=== PATIENT | male | born 1945 | race Caucasian/White ===

== ENCOUNTER 2021-09-04 17:48 | Inpatient (IN) | payer MEDICARE, BC, SELFPAY ==
[2021-09-04] VITALS (72 sets, daily range): BP systolic 82–150; BP diastolic 33–111; PULSE 71–128; RESP 6–55; TEMP 37; O2SAT 84–100
--- NOTE | 2021-09-04 17:15 | RT.EKG_ITS ---
APPROVED REPORT Exam: Resting ECG Reason for Exam: [facility] Patient Location: HR:100 bpm ECG Measurements Heart Rate 100 AXIS ID 190 P 59 QRSd 91 QRS 26 QT 347 T 61 QTc 446 Conclusion Sinus tachycardia...rate> 99 Multiple ventricular premature complexes...V complexes w/ short R-R intervls. Sinus. Normal axis. No STEMI. I have reviewed and interpreted ECG and agree with software generated interpretation.
--- NOTE | 2021-09-04 18:18 | ED.GENADUL_ITS ---
Discharge Plan Disposition Patient Disposition: [facility] INPATIENT Condition: Serious Discharge Details Clinical Impression: Acute respiratory distress, HCAP (healthcare-associated pneumonia), Acute exacerbation of chronic obstructive pulmonary disease Admit Date/Time: 09/04/21 23:21 Admit Provider: Ton Schofield Attending Provider: Ton Schofield Primary Care Provider: Luis Antonio Medina ED Provider: Garertt Cruz Discharge Data Discharge Date/Time-TO BE ENTERED AT DEPARTURE: 09/05/21 01:27 Medical Decision Making <Keysha Sams DO - Last Filed: 09/05/21 15:59> 09/05/21 Dr. Sams [id number] -- 76-year-old male who is a full code with a history of COPD chronically on 4 L of nasal cannula oxygen, hypertension who [facility] after EMS noted CPAP to be leaking. Able to readjust at the rehab but they are requesting evaluation. Oxygen saturation 99% on 2 L on arrival. Patient's speech appears garbled but daughter states this is baseline for the past month. Patient apparently was discharged from [facility] for pneumonia and COPD exacerbation yesterday. Differential diagnosis includes COPD exacerbation, pneumonia, ACS, PE, electrolyte abnormality, COVID, influenza. We will place an IV, screening labs, chest x-ray. 1829 -- Oxygen saturation decreased to 88% and increased nasal cannula to 5 L O2. Labs reviewed. White blood cell count 9. Hemoglobin 9.9. Troponin 464. EKG with a rate of 100, sinus, PVCs, normal axis, no STEMI nondiagnostic. Suspect demand ischemia in the setting or hypoxia/pneumonia. Fluvid negative. Chest x- ray notes left basilar opacity concerning for pneumonia. In setting of recent admission for pneumonia and hypoxia, will cover for HCAP. CT chest ordered in the setting of hypoxia and elevated troponin initial heart rate of 100 to rule out PE. 1930 -- patient appears to have mild work of breathing. Oxygen saturation 97% on room air. Daughter states he cannot take steroids as it causes significant agitation. We will order a DuoNeb and start BiPAP. 2014 --patient tolerating BiPAP and he appears to be breathing more comfortably but now hypotensive. IV fluids ordered. ABG after short period of time on BiPAP w/ pH of 7.23, PCO2 > 100, PO2 85 with settings 12/5 and FiO2 40%. As he appears to be breathing more comfortably, respiratory at bedside adjusting BiPAP settings and will continue to monitor and recheck ABG. Low threshold for intubation. Discussed again with daughter who states that patient is a full code. Case endorsed to Dr. Cruz to continue to monitor with plans for repeat troponin and EKG, follow-up on CT chest and final disposition. 09/05/21 Dr. Cruz pt signed out to me. He apparently was not tolerating bipap and agitated on bipap and is now calm and somnolent after bipap. Initial abg showed ph of 7.23 and pco2 over 100 but this was before he was having adequate ventilations on bipap. He is now breathing on his own and tolerating bipap and repeat abg shows improved pco2 at 80 and pH of 7.29. He will groan to painful stimuli and withdraw extremities and is breathing well without secretions so do not feel intubation indicated currently. Suspect he is now more somnolent due to the hypercapnia and ativan. I did discuss case with cardiology at [facility] and they did not have any further recommendations did not feel this was cardiac related and felt it was related to his underlying respiratory problems. His d dimer is barely above age adjusted threshold and feel his presentation is more consistent with his copd/pneumonia and not adequate use of his cpap/bipap so do not feel cta indicated especailly with iv contrast shortage. discussed with hopsitalst who accepts for admission Medical Records Medical records reviewed: Yes I reviewed the patient's medical records. Imaging Data Radiologic Study: Radiologist's impression: XR Chest Exam date and time: 09/04/2021 18:37 Age: 76 years old Clinical indication: Other: Hypoxia; Patient HX: R/O acute disease TECHNIQUE: Imaging protocol: XR of the chest. Views: 1 view. COMPARISON: No relevant prior studies available. FINDINGS: Lungs: Emphysema. Left basilar opacity. Pleural spaces: No definite pleural effusion. No pneumothorax. Heart/Mediastinum: Prominent main pulmonary artery segment suggesting pulmonary artery hypertension. The cardiac silhouette is upper limits of normal. Bones/joints: No acute fracture.? IMPRESSION: 1. Emphysema. 2. Left basilar opacity concerning for pneumonia. ECG Data Attestation: I personally reviewed and interpreted this ECG (s) as follows: Interpretation: Rate of 100, sinus, PVCs, normal axis, no STEMI. <Garrett Cruz MD - Last Filed: 09/04/21 23:43> 1725 -- 76-year-old male who is a full code with a history of COPD chronically on 4 L of nasal cannula oxygen, hypertension who presents [facility] for hypoxia after EMS noted CPAP to be leaking. Able to readjust at the rehab but they are requesting evaluation. Oxygen saturation 99% on 2 L on arrival. Patient states he appears garbage daughter states this is baseline for the past month. Patient apparently was discharged from [facility] for pneumonia and COPD exacerbation yesterday. Differential diagnosis includes COPD exacerbation, pneumonia, ACS, PE, electrolyte abnormality, COVID, influenza. We will place an IV, screening labs, chest x-ray. 1829 -- Oxygen saturation decreased to 88% and increased nasal cannula to 5 L O2. 1929 -- patient appears to have mild work of breathing. Oxygen saturation 97% on room air. Daughter states he cannot take steroids as it causes significant agitation. We will order a DuoNeb and start BiPAP. 2014 --patient tolerating BiPAP and he appears to be breathing more comfortably but now hypotensive. IV fluids ordered. Case endorsed to Dr. Cruz to continue to monitor with plans for repeat troponin and EKG, follow-up on CT chest and final disposition. pt signed out to me. He apparently was not tolerating bipap and agitated on bipap and is now calm and somnolent after bipap. Initial abg showed ph of 7.23 and pco2 over 100 but this was before he was having adequate ventilations on bipap. He is now breathing on his own and tolerating bipap and repeat abg shows improved pco2 at 80 and pH of 7.29. He will groan to painful stimuli and withdraw extremities and is breathing well without secretions so do not feel intubation indicated currently. Suspect he is now more somnolent due to the hypercapnia and ativan. I did discuss case with cardiology at [facility] and they did not have any further recommendations did not feel this was cardiac related and felt it was related to his underlying respiratory problems. His d dimer is barely above age adjusted threshold and feel his presentation is more consistent with his copd/pneumonia and not adequate use of his cpap/bipap so do not feel cta indicated especailly with iv contrast shortage. discussed with hopsital[facility] who accepts for admission HPI <Keysha Sams, - Last Filed: 09/05/21 15:59> General Mode of arrival: EMS . Date/Time Provider Initiated Documentation: 09/04/21 18:17 . Limitations to Documentation: no limitations . Information obtained by: patient and family . HPI Narrative: Patient is a 76-year-old male with a history of COPD chronically on 4 L nasal cannula in past 4 years who presents for hypoxia noted at the [facility]. Per EMS, they were called for saturations in the 80s. Upon their arrival, they noted the CPAP to be leaking which was readjusted and his saturations were brought to mid 90s. Health and rehab were requesting evaluation and transfer. Patient denies shortness of breath on arrival. It was reported by daughter on her arrival that patient was admitted to [facility] recently for COPD exacerbation and pneumonia. She states she was intubated twice during his admission. She states he is still currently a full code. She also endorses that he has had garbled speech for the past month and was worked up at [facility] and ruled out for stroke. Daughter states that patient cannot take steroids as it makes him significantly agitated. Related Data Home Medications Medication Instructions Recorded Confirmed azithromycin 250 mg tablet 250 mg PO QAM 09/04/21 09/04/21 budesonide-formoterol HFA 160 2 puff inhalation BID 09/04/21 09/04/21 mcg-4.5 mcg/actuation aerosol inhaler calcipotriene 0.005 % scalp 1 applic topical DAILY 09/04/21 09/04/21 solution calcipotriene 0.005 % topical cream 1 applic topical DAILY 09/04/21 09/04/21 clobetasol 0.05 % topical ointment 1 applic topical BID 09/04/21 09/04/21 docusate sodium 100 mg capsule 100 mg PO BID 09/04/21 09/04/21 fluticasone propionate 50 2 spray intranasal BID 09/04/21 09/04/21 mcg/actuation nasal spray,suspension ipratropium bromide 0.02 % 0.5 mg inhalation QID 09/04/21 09/04/21 solution for inhalation ketoconazole 2 % shampoo 1 applic topical DIRECTED 09/04/21 09/04/21 losartan 100 mg tablet 100 mg PO DAILY 09/04/21 09/04/21 metoprolol succinate 25 mg 25 mg PO DAILY 09/04/21 09/04/21 tablet,extended release 24 hr pimecrolimus 1 % topical cream 1 applic topical BID PRN 09/04/21 09/04/21 tacrolimus 0.1 % topical ointment 1 applic topical BID 09/04/21 09/04/21 tiotropium bromide 2.5 2 puff inhalation DAILY 09/04/21 09/04/21 mcg/actuation mist for inhalation (Spiriva Respimat) triamcinolone acetonide 0.1 % 1 applic topical BID 09/04/21 09/04/21 topical cream Allergies Allergy/AdvReac Type Severity Reaction Status Date / Time Calcium Channel Blocking AdvReac Unknown Unverified 09/04/21 18:21 Agent Dilt oxycodone AdvReac Unknown Unverified 09/04/21 18:19 prednisone AdvReac Unknown Unverified 09/04/21 18:20 [id number]-SdT Reductase AdvReac Unknown Unverified 09/04/21 18:21 Inhibitor sulfamethoxazole AdvReac Unknown Unverified 09/04/21 18:20 [From Bactrim] trimethoprim [From Bactrim] AdvReac Unknown Unverified 09/04/21 18:20 General Stated Complaint: SOB DOMINGUEZ: 1 Review of Systems <Keysha Sams DO - Last Filed: 09/05/21 15:59> All systems reviewed & are unremarkable except as noted in HPI and below Constitutional Constitutional: Denies chills, Denies excessive sweating, Denies fatigue, Denies fever(s), Denies weakness and Denies weight loss Eyes Eyes: Reports system reviewed and no additional complaints, except as documented and Denies blurry vision ENT Ears, Nose, Mouth, and Throat: Denies vertigo, Denies dizziness, Denies otalgia, Denies nasal congestion, Denies sore throat and Denies throat swelling Cardiovascular Cardiovascular: Denies chest pain, Denies syncope, Denies rapid heart rate and Reports dyspnea Respiratory Respiratory: Denies chest congestion, Denies cough, Denies pain on inspiration and Reports dyspnea Gastrointestinal Gastrointestinal: Denies abdominal pain, Denies diarrhea and Denies vomiting Genitourinary Genitourinary: Denies hematuria, Denies dysuria and Denies flank pain Musculoskeletal Musculoskeletal: Denies back pain and Denies joint swelling Integumentary/Breasts Skin/Breast: Denies lesions and Denies rash Neurologic Neurologic: Denies behavioral changes, Denies confusion, Denies vertigo, Denies dizziness, Denies syncope, Denies localized weakness and Denies weakness Psychiatric Psychiatric: Denies behavioral changes, Denies confusion and Denies depression Endocrine Endocrine: Denies excessive sweating and Denies fatigue Hematologic/Lymphatic Hematologic/Lymphatic: Denies easy bruising and Denies lymphadenopathy Allergic/Immunologic Allergic/Immunologic: Denies throat swelling PFSH <Keysha Sams DO - Last Filed: 09/05/21 15:59> All Active Problems NSTEMI (non-ST elevated myocardial infarction) (Acute) Acute respiratory failure with hypoxia and hypercarbia (Acute) Acute respiratory distress (Acute) HCAP (healthcare-associated pneumonia) (Acute) Acute exacerbation of chronic obstructive pulmonary disease (Acute) Medical History COPD (chronic obstructive pulmonary disease) HTN (hypertension) Prostate cancer Surgical History No significant past surgical history Social History Smoking/Tobacco Use Status: Former Tobacco Use Smoking risk assessment performed?: Yes Alcohol Intake: current Substance use type: does not use Do you feel safe at home: Yes Do you feel safe in your relationship?: Yes Exam <Keysha Sams DO - Last Filed: 09/05/21 15:59> Const General: cooperative Orientation: alert, awake and oriented x3 HENMT Head: normal to inspection Ears: hearing grossly normal bilaterally, external ears normal and TM's normal bilaterally General nose exam: external nose normal Face and sinus: normal facial exam Mouth: oral mucosae normal Teeth and gingiva: dentition normal Throat: posterior oropharynx normal Eyes General: appearance normal, both eyes and all related structures Eyelids: eyelids normal Pupils: PERRL EOM: EOM intact bilaterally Neck Neck: normal visual inspection Lymphatic: no lymphadenopathy noted Chest Chest: normal inspection of the chest Resp Effort & Inspection: normal respiratory effort and able to speak in complete sentences Auscultation: clear to auscultation bilaterally Cardio Rate: regular rate Rhythm: regular rhythm GI Inspection: normal to inspection Palpation: soft, not firm, no guarding, no hepatosplenomegaly, no masses and nontender Auscultation: normal bowel sounds Back/Spine/Pelvis Back: no CVA tenderness Skin General skin exam: no rashes or lesions noted Neuro General: patient alert and patient awake Cognition: normal cognition Speech: speech normal Gait: normal gait Motor: muscle tone normal throughout Sensory Exam: no sensory deficits noted Extrem General: normal to inspection, full ROM and capillary refill normal Psych Appearance: grossly normal Mental Status: mental status grossly normal Speech and Movement: speech and movement normal Affect: normal affect Thought Process: normal Course <DO Pj Eason Last Filed: 09/05/21 15:59> Vital Signs Vital signs: Vital Signs Temperature 98.6 F 09/04/21 17:22 Pulse 99 H 09/04/21 17:22 Respiratory Rate 28 H 09/04/21 17:22 Blood Pressure 122/67 09/04/21 17:22 Pulse Oximetry 99 09/04/21 17:22 Temperature 98.6 F 09/04/21 17:22 Temperature Source Skin 09/04/21 17:22 Pulse 99 H 09/04/21 17:22 Respiratory Rate 37 H 09/04/21 18:01 Respiratory Effort Incrsd Work of Breathing 09/04/21 18:01 Respiratory Depth Shallow 09/04/21 18:01 Blood Pressure 122/67 09/04/21 17:22 Pulse Oximetry 97 09/04/21 17:58 Oxygen Delivery Method Nasal Cannula 09/04/21 17:58 Oxygen Flow Rate 2 09/04/21 17:58 Pain Level 0 09/04/21 17:22 Critical Care Time <DO Pj Eason Last Filed: 09/05/21 15:59> Critical Care Time Critical Care Time: Yes Total Critical Care Time: 60 Attestation: I spent 60 minutes of critical care time with this patient. This does not include time spent on separately reported billable procedures. Sign Out <DO Pj Eason Last Filed: 09/05/21 15:59> Sign Out Data: Sign Out Comment: Recent admission to [facility] for COPD exacerbation and pneumonia. Sent from [facility] re[facility] for hypoxia. Was initially mid 90s on baseline nasal cannula, now increased work of breathing and on BiPAP. Elevated troponin with plan for delta troponin at 2109. Follow-up on CT chest to rule out PE. Pneumonia on chest x-ray today. Will need admission or transfer. Last updated by Keysha Sams DO at 09/04/21 20:09
[2021-09-04 18:30] LABS: Abs Immature Grans 0.05 10^3/uL (0.0-0.06); Absolute Basophil Count 0.01 10^3/uL (0.0-0.2); Absolute Eosinophil Count 0.01 10^3/uL (0.0-0.7); Absolute Lymphocyte Count 0.65 10^3/uL (1.2-3.4); Absolute Monocyte Count 0.91 10^3/uL (0.1-0.8); Absolute Neutrophil Count 7.73 10^3/uL (1.2-6.7); Basophils % 0.1; Eosinophils % 0.1; HCT 34.3 % (40.0-50.0); HGB 9.9 g/dL (13.5-17.5); Immature Grans % 0.5; Lymphocytes % 6.9; MCH 26.2 pg (27.0-33.0); MCHC 28.9 % (32.0-36.0); MCV 91 fL (80-95); MPV 9.8 fL (8.0-11.0); Monocytes % 9.7; Neutrophils % 82.7; Platelet Count 281 10^3/uL (130-400); RBC 3.78 10^6/uL (4.36-5.78); RDW 15.4 % (11.8-14.1); RDW-SD 50.8 fL; WBC 9.36 10^3/uL (4.4-10.8)
--- NOTE | 2021-09-04 18:30 | DI.RAD_ITS ---
Exam(s) XR PORTABLE CHEST AP EXAM: XR PORTABLE CHEST AP CLINICAL HISTORY: shortness of breath, r/o acute disease. TECHNIQUE: 2D digital imaging was performed. COMPARISON: No exams were available for comparison FINDINGS: Single AP portable view. Heart size is upper normal. The mediastinum is not widened. COPD/emphysematous changes evident. Infiltrate noted in the lower left lung field. No large pleural effusions. No pneumothorax. IMPRESSION: COPD/emphysema. Left lower lobe infiltrate. DATA REPOSITORY: RADIATION DOSE DELIVERED: All CT scans at this facility use at least one of these dose optimization techniques: automated exposure control; mA and/or kV adjustment per patient size (includes targeted e xams where dose is matched to clinical indication); or iterative reconstruction.
[2021-09-04 18:45] LABS: ALT 17 U/L (16-63); AST 21 U/L (15-37); Albumin 3.1 g/dL (3.4-5.0); Alkaline Phosphatase 99 U/L (46-116); Anion Gap 0.2 mmol/L (3-11); BUN 31 mg/dL (7-18); Bilirubin, Total 0.2 mg/dL (0.2-1.0); CO2 40.8 mmol/L (21.0-32.0); CREATININE 0.7 mg/dL (0.70-1.30); Calcium 8.3 mg/dL (8.5-10.1); Chloride 99 mmol/L (98-107); Glucose 130 mg/dL (74-106); Magnesium 2.2 mg/dL (1.8-2.4); Potassium 4.4 mmol/L (3.5-5.1); Sodium 140 mmol/L (136-145); Total Protein 6.3 g/dL (6.4-8.2)
[2021-09-04 18:47] LABS: Troponin I 464 ng/L (<or=60)
--- NOTE | 2021-09-04 19:02 | DI.VRAD_ITS ---
PROCEDURE INFORMATION: Exam: XR Chest Exam date and time: 09/04/2021 18:37 Age: 76 years old Clinical indication: Other: Hypoxia; Patient HX: R/O acute disease TECHNIQUE: Imaging protocol: XR of the chest. Views: 1 view. COMPARISON: No relevant prior studies available. FINDINGS: Lungs: Emphysema. Left basilar opacity. Pleural spaces: No definite pleural effusion. No pneumothorax. Heart/Mediastinum: Prominent main pulmonary artery segment suggesting pulmonary artery hypertension. The cardiac silhouette is upper limits of normal. Bones/joints: No acute fracture. IMPRESSION: 1. Emphysema. 2. Left basilar opacity concerning for pneumonia. Dictated and Authenticated by: Carmen Figueroa MD. Ordering:JACQUES Chopra MD
[2021-09-04 19:16] LABS: COVID-19 PCR Negative (Negative); Influenza A PCR Negative (Negative); Influenza B PCR Negative (Negative); RSV PCR Negative (Negative)
[2021-09-04 19:18] LABS: Source Nasopharynx
[2021-09-04] MEDS: Albuterol/Ipratropium 3 ML UPD VIAL UPD (19:34)
[2021-09-04] MEDS: LORazepam 2 MG/ML VIAL 0.5 MG IVP (19:53)
[2021-09-04] MEDS: Normal Saline 500 ML IV (20:20)
[2021-09-04] MEDS: Albuterol 2.5 MG/3 ML INH SOLN VIAL 5 MG UPD (20:23)
[2021-09-04 20:42] LABS: Lactate 0.5 mmol/L (0.6-1.4)
[2021-09-04 20:45] LABS: D-Dimer 1042 ng/mlFEU (<500)
[2021-09-04 20:48] LABS: pH 7.23 (7.35-7.45); pO2 85 mmHg (80-105); sO2 96 % (95-98)
[2021-09-04 20:52] LABS: FIO2 40 %; Site Left Radial; pCO2 > 100 mmHg (35-45)
[2021-09-04] MEDS: PIPERACILLIN/TAZO 3.375 GM in Normal Saline 50 ML IVPB (21:16)
[2021-09-04] MEDS: Dexamethasone 10 MG/ML VIAL IVP (21:20)
[2021-09-04 21:30] LABS: Procalcitonin < 0.1 ng/mL
[2021-09-04] MEDS: VANCOMYCIN 1,250 MG in Normal Saline 250 ML 166.6666 MG IVPB (21:30)
[2021-09-04 21:31] LABS: Troponin I 471 ng/L (<or=60)
[2021-09-04 21:39] LABS: BE 14 mmol/L (-2-3); HCO3 40 mmol/L (22-26); pH 7.29 (7.35-7.45); pO2 58 mmHg (80-105); sO2 87 % (95-98); tCO2 39 mmol/L (23-27)
[2021-09-04 21:42] LABS: FIO2 30 %; FIO2L BIPAP 15/5 L; Site Right Radial; pCO2 84 mmHg (35-45)
--- NOTE | 2021-09-04 23:45 | W.PM.HP.N ---
Date of service: 09/04/21 Time of Service: 22:45 Assessment and Plan Assessment and plan (1) Acute respiratory failure with hypoxia and hypercarbia: Start date: 09/04/21 Status: Acute Assessment and plan: This is a 76-year-old gentleman who has chronic respiratory failure who presented with malfunctioning CPAP and the [facility] where he was recovering from recent hospitalization with severe COPD exacerbation requiring intubation at least twice. He also had a pneumonia over the left lower lobe which appears to be persisting with patient on treatment for hospital-acquired pneumonia with Zosyn and vancomycin given in the ED to be continued. Is doing better with BiPAP and clearing his hypercapnia. He is a full code. (2) Acute exacerbation of chronic obstructive pulmonary disease: Start date: 09/04/21 Status: Acute Assessment and plan: Continue BiPAP and respiratory treatments with IV Decadron. (3) HCAP (healthcare-associated pneumonia): Start date: 09/04/21 Status: Acute Assessment and plan: Continue Zosyn and vancomycin and follow-up imaging adjusting therapy to patient's clinical and imaging progress. (4) NSTEMI (non-ST elevated myocardial infarction): Start date: 09/04/21 Status: Acute Assessment and plan: Patient had elevation in troponins and is allergic to statins but already on metoprolol which will be continued with aspirin initiated. Trend troponins but this most likely secondary to strain from his respiratory status. Patient's CODE STATUS should be reevaluated with his severe lung disease. History of Present Illness History of Present Illness Chief Complaint: Obtundation with CPAP malfunctioning in rehab facility Narrative: Patient is a 76-year-old male with a history of COPD chronically on 4 L nasal cannula in past 4 years who presents for hypoxia noted at the [facility].? Per EMS, they were called for saturations in the 80s.? Upon their arrival, they noted the CPAP to be leaking which was readjusted and his saturations were brought to mid 90s.? The rehab facility was requesting evaluation and transfer.? Patient denies shortness of breath on arrival.? It was reported by daughter on her arrival that patient was admitted to [facility] recently for COPD exacerbation and pneumonia.? She states he was intubated twice during his admission.? She states he is still currently a full code.? She also endorsed that he has had garbled speech for the past month and was worked up at [facility] and ruled out for stroke.? Daughter stated that patient cannot take steroids as it makes him significantly agitated. He was given Decadron in the ED without side effects. The patient's initial blood gas was acidotic with hypercapnia respiratory failure which corrected with BiPAP with second blood gas. Patient was awakening slowly. The time I saw the patient he was awake and conversing stating that it is not my fault and was slightly confused. He was speaking more clearly with reported garbled speech when more sedated with hypercapnia. Lab in the ED did reveal anemia withou evidence of CKD and elevated TCO2 indicating chronic respiratory failure with patient having history of COPD exacerbation and pneumonia recently. D-dimer was positive but because of active respiratory symptoms the ED doctor chose not to do CTA of the chest. Patient continued on BiPAP with O2 supplementation and was brought to the ICU for MedSurg overflow not requiring ICU level of care. He was stabilizing with treatment. His troponins will be trended and he was given aspirin but not statin because of severe allergies to this in the past. He was already on metoprolol. Patient was initiated on Zosyn and vancomycin for hospital-acquired pneumonia having missed outpatient [facility] and being intubated twice. His chest x-ray did show continued left infiltrate. Patient also was given Decadron which will be continued with aggressive respiratory treatment including BiPAP. Troponins will be trended with elevation though asymptomatic. He is a full code. In the ED at handoff patient was endorsed to Dr. Cruz: Patient signed out to me. He apparently was not tolerating bipap and agitated on bipap and is now calm and somnolent after bipap. Initial abg showed ph of 7.23 and pco2 over 100 but this was before he was having adequate ventilations on bipap. He is now breathing on his own and tolerating bipap and repeat abg shows improved pco2 at 80 and pH of 7.29. He will groan to painful stimuli and withdraw extremities and is breathing well without secretions so do not feel intubation indicated currently. Suspect he is now more somnolent due to the hypercapnia and ativan. I did discuss case with [place] [facility] and they did not have any further recommendations did not feel this was cardiac related and felt it was related to his underlying respiratory problems. His d dimer is barely above age adjusted threshold and feel his presentation is more consistent with his copd/pneumonia and not adequate use of his cpap/bipap so do not feel cta indicated especailly with iv contrast shortage. discussed with [facility] who accepts for admission. Review of Systems Narrative: 13 point review of systems otherwise unrevealing or stable. PFSH All Active Problems NSTEMI (non-ST elevated myocardial infarction) (Acute) Acute respiratory failure with hypoxia and hypercarbia (Acute) Acute respiratory distress (Acute) HCAP (healthcare-associated pneumonia) (Acute) Acute exacerbation of chronic obstructive pulmonary disease (Acute) Medical History COPD (chronic obstructive pulmonary disease) HTN (hypertension) Prostate cancer Surgical History No significant past surgical history Social History Smoking/Tobacco Use Status: Former Tobacco Use Smoking risk assessment performed?: Yes Alcohol Intake: current Substance use type: does not use Do you feel safe at home: Yes Do you feel safe in your relationship?: Yes Meds Allergies and Home Medications Allergies Allergy/AdvReac Type Severity Reaction Status Date / Time Calcium Channel Blocking AdvReac Unknown Unverified 09/04/21 18:21 Agent Dilt oxycodone AdvReac Unknown Unverified 09/04/21 18:19 prednisone AdvReac Unknown Unverified 09/04/21 18:20 [id number]-BFV-XqV Reductase AdvReac Unknown Unverified 09/04/21 18:21 Inhibitor sulfamethoxazole AdvReac Unknown Unverified 09/04/21 18:20 [From Bactrim] trimethoprim [From Bactrim] AdvReac Unknown Unverified 09/04/21 18:20 Home Medications Medication Instructions Recorded Confirmed Type azithromycin 250 mg tablet 250 mg PO QAM 09/04/21 09/04/21 History budesonide-formoterol HFA 160 2 puff inhalation BID 09/04/21 09/04/21 History mcg-4.5 mcg/actuation aerosol inhaler calcipotriene 0.005 % scalp 1 applic topical DAILY 09/04/21 09/04/21 History solution calcipotriene 0.005 % topical cream 1 applic topical DAILY 09/04/21 09/04/21 History clobetasol 0.05 % topical ointment 1 applic topical BID 09/04/21 09/04/21 History docusate sodium 100 mg capsule 100 mg PO BID 09/04/21 09/04/21 History fluticasone propionate 50 2 spray intranasal BID 09/04/21 09/04/21 History mcg/actuation nasal spray,suspension ipratropium bromide 0.02 % 0.5 mg inhalation QID 09/04/21 09/04/21 History solution for inhalation ketoconazole 2 % shampoo 1 applic topical DIRECTED 09/04/21 09/04/21 History losartan 100 mg tablet 100 mg PO DAILY 09/04/21 09/04/21 History metoprolol succinate 25 mg 25 mg PO DAILY 09/04/21 09/04/21 History tablet,extended release 24 hr pimecrolimus 1 % topical cream 1 applic topical BID PRN 09/04/21 09/04/21 History tacrolimus 0.1 % topical ointment 1 applic topical BID 09/04/21 09/04/21 History tiotropium bromide 2.5 2 puff inhalation DAILY 09/04/21 09/04/21 History mcg/actuation mist for inhalation (Spiriva Respimat) triamcinolone acetonide 0.1 % 1 applic topical BID 09/04/21 09/04/21 History topical cream Exam Narrative Exam Narrative: General: Patient appears older than stated age, anxious appearing with flattened affect but good eye contact. Is a poor historian. He is in no acute distress and comfortable wearing BiPAP. He is alert and oriented at least to person and place. HEENT: Normocephalic, face with coarsened features, eyes with pupils equal and reactive light symmetrically, extraocular movement intact and sclera anicteric. Oropharynx with moist mucosa. Neck: Supple without JVD. Back: Stooped posture without CVA tenderness. Lungs: Bronchovesicular breath sounds diffusely with decreased aeration diffusely and egophony over the left hemithorax and decreased aeration over the base of the left compared to right though overall aeration is poor. Slight increased expiratory phase and no expiratory wheeze. No focalizing rales or rhonchi. Patient is barrel chested. Heart: Regular rhythm with no murmurs gallops appreciated. Abdomen: Normal contour, soft and nontender to palpation with no palpable hepatosplenomegaly. Genitalia/rectal: Exam deferred. Extremities: Without clubbing, cyanosis or grossly pitting edema. Peripheral pulses decreased but intact. Skin: Pale, warm and dry. Fair turgor. Neuro: Cranial nerves II through XII was intact, no focalizing motor deficits. No tremor. Psych: Flat affect with depressed mood patient having some paranoia. No other abnormal thought processes. Remote and recent memory appear to be grossly intact though patient still slightly obtunded and a poor historian Results Imaging Imaging Studies: Exam: XR Chest Exam date and time: 09/04/2021 18:37 Age: 76 years old Clinical indication: Other: Hypoxia; Patient HX: R/O acute disease TECHNIQUE: Imaging protocol: XR of the chest. Views: 1 view. COMPARISON: No relevant prior studies available. FINDINGS: Lungs: Emphysema. Left basilar opacity. Pleural spaces: No definite pleural effusion. No pneumothorax. Heart/Mediastinum: Prominent main pulmonary artery segment suggesting pulmonary artery hypertension. The cardiac silhouette is upper limits of normal. Bones/joints: No acute fracture.? IMPRESSION: 1. Emphysema. 2. Left basilar opacity concerning for pneumonia. Labs Result diagrams: 09/05/21 06:25 09/05/21 06:25 Labs: Laboratory Results - last 24 hr 09/04/21 09/04/21 09/04/21 16:10 17:00 18:10 WBC RBC Hgb Hct MCV MCH MCHC RDW Plt Count MPV Immature Gran % Neutrophils % Lymphocytes % Monocytes % Eosinophils % Basophils % Nucleated RBC % Absolute Neutrophils Absolute Lymphocytes Absolute Monocytes Absolute Eosinophils Absolute Basophils D-Dimer 1042 H ABG Sample Site ABG pH ABG pCO2 ABG pO2 ABG HCO3 ABG Total CO2 ABG O2 Saturation ABG Base Excess VBG Lactate Oxygen Liter Flow FiO2 Sodium 140 Potassium 4.4 Chloride 99 Carbon Dioxide 40.8 H Anion Gap 0.2 L BUN 31 H Creatinine 0.7 Estimated GFR/1.73 m2 >= 60.00 Glucose 130 H Calcium 8.3 L Magnesium 2.2 Total Bilirubin 0.2 AST 21 ALT 17 Alkaline Phosphatase 99 Troponin I 464 H* Total Protein 6.3 L Albumin 3.1 L Procalcitonin COVID-19 Source Nasopharynx SARS-CoV-2 (PCR) Negative Influenza Type A (PCR) Negative Influenza Type B (PCR) Negative RSV (PCR) Negative 09/04/21 09/04/21 09/04/21 18:17 19:10 20:30 WBC 9.36 RBC 3.78 L Hgb 9.9 L Hct 34.3 L MCV 91 MCH 26.2 L MCHC 28.9 L RDW 15.4 H Plt Count 281 MPV 9.8 Immature Gran % 0.5 Neutrophils % 82.7 Lymphocytes % 6.9 Monocytes % 9.7 Eosinophils % 0.1 Basophils % 0.1 Nucleated RBC % 0.0 Absolute Neutrophils 7.73 H Absolute Lymphocytes 0.65 L Absolute Monocytes 0.91 H Absolute Eosinophils 0.01 Absolute Basophils 0.01 D-Dimer ABG Sample Site ABG pH ABG pCO2 ABG pO2 ABG HCO3 ABG Total CO2 ABG O2 Saturation ABG Base Excess VBG Lactate 0.5 L Oxygen Liter Flow FiO2 Sodium Potassium Chloride Carbon Dioxide Anion Gap BUN Creatinine Estimated GFR/1.73 m2 Glucose Calcium Magnesium Total Bilirubin AST ALT Alkaline Phosphatase Troponin I Cancelled Total Protein Albumin Procalcitonin < 0.1 COVID-19 Source SARS-CoV-2 (PCR) Influenza Type A (PCR) Influenza Type B (PCR) RSV (PCR) 09/04/21 09/04/21 09/04/21 20:32 20:45 21:35 WBC RBC Hgb Hct MCV MCH MCHC RDW Plt Count MPV Immature Gran % Neutrophils % Lymphocytes % Monocytes % Eosinophils % Basophils % Nucleated RBC % Absolute Neutrophils Absolute Lymphocytes Absolute Monocytes Absolute Eosinophils Absolute Basophils D-Dimer ABG Sample Site Left Radial Right Radial ABG pH 7.23 L 7.29 L ABG pCO2 > 100 H* 84 H* ABG pO2 85 58 L ABG HCO3 40 H ABG Total CO2 39 H ABG O2 Saturation 96 87 L ABG Base Excess 14 H VBG Lactate Oxygen Liter Flow BIPAP 12/5 BIPAP 15/5 FiO2 40 30 Sodium Potassium Chloride Carbon Dioxide Anion Gap BUN Creatinine Estimated GFR/1.73 m2 Glucose Calcium Magnesium Total Bilirubin AST ALT Alkaline Phosphatase Troponin I 471 H* Total Protein Albumin Procalcitonin COVID-19 Source SARS-CoV-2 (PCR) Influenza Type A (PCR) Influenza Type B (PCR) RSV (PCR) Last Vital Signs Temp 37 C 05/14/22 17:22 Pulse 83 09/04/21 22:29 Resp 15 09/04/21 22:29 BP 107/53 L 09/04/21 22:01 Pulse Ox 96 09/04/21 22:29
[2021-09-05] VITALS (34 sets, daily range): BP systolic 94–146; BP diastolic 51–84; PULSE 59–96; RESP 2–38; TEMP 36.3–37.3; O2SAT 91–99
[2021-09-05] MEDS: Aspirin 81 MG CHEW CH ×2 (02:36→08:39)
[2021-09-05] MEDS: Albuterol/Ipratropium 3 ML UPD VIAL UPD ×2 (02:36→05:22)
[2021-09-05] MEDS: PIPERACILLIN/TAZO 3.375 GM in Normal Saline 50 ML IVPB (03:22)
[2021-09-05] MEDS: Normal Saline Flush 10 ML SYR IVP ×4 (03:23→18:20)
[2021-09-05] MEDS: Normal Saline 500 ML 30 ML IV (03:23)
[2021-09-05 06:43] LABS: Abs Immature Grans 0.02 10^3/uL (0.0-0.06); Absolute Basophil Count 0.01 10^3/uL (0.0-0.2); Absolute Monocyte Count 0.31 10^3/uL (0.1-0.8); Absolute Neutrophil Count 5.02 10^3/uL (1.2-6.7); Basophils % 0.2; HCT 32.4 % (40.0-50.0); HGB 9.5 g/dL (13.5-17.5); Immature Grans % 0.3; Lymphocytes % 8.5; MCH 26.5 pg (27.0-33.0); MCHC 29.3 % (32.0-36.0); MCV 91 fL (80-95); MPV 9.8 fL (8.0-11.0); Monocytes % 5.3; Neutrophils % 85.7; Platelet Count 214 10^3/uL (130-400); RBC 3.58 10^6/uL (4.36-5.78); RDW 15.3 % (11.8-14.1); RDW-SD 50.7 fL; WBC 5.86 10^3/uL (4.4-10.8)
[2021-09-05 07:14] LABS: ALT 17 U/L (16-63); AST 21 U/L (15-37); Albumin 2.8 g/dL (3.4-5.0); Alkaline Phosphatase 89 U/L (46-116); Anion Gap -0.4 mmol/L (3-11); BUN 26 mg/dL (7-18); Bilirubin, Total 0.3 mg/dL (0.2-1.0); CO2 40.4 mmol/L (21.0-32.0); CREATININE 0.8 mg/dL (0.70-1.30); Calcium 8.1 mg/dL (8.5-10.1); Chloride 101 mmol/L (98-107); Glucose 114 mg/dL (74-106); Potassium 4.6 mmol/L (3.5-5.1); Sodium 141 mmol/L (136-145); Total Protein 5.9 g/dL (6.4-8.2)
[2021-09-05 07:18] LABS: Troponin I 363 ng/L (<or=60)
[2021-09-05 07:30] LABS: Calculated LDL 98 mg/dL (<100); Cholesterol 187 mg/dL (<200); HDL Cholesterol 81 mg/dL (40-60); Triglyceride 43 mg/dL (<150)
[2021-09-05] MEDS: Enoxaparin 40 MG/0.4 ML SYR SC (08:39)
[2021-09-05] MEDS: Losartan 50 MG TAB 100 MG PO (08:39)
[2021-09-05] MEDS: Metoprolol CR 25 MG TABCR PO (08:40)
[2021-09-05] MEDS: Ipratropium 0.5 MG/2.5 ML UPD VIAL IH ×4 (10:07→20:16)
[2021-09-05 10:15] LABS: Lab Add On Test DONE
[2021-09-05 10:34] LABS: NT-proBNP 3319 pg/mL (<300)
[2021-09-05] MEDS: Furosemide 20 MG/2 ML VIAL IVP ×2 (12:02→18:20)
--- NOTE | 2021-09-05 12:07 | W.PM.PROGNOT ---
Date of Service Date of service: 09/05/21 Time of Service: 08:30 Subjective Subjective Patient reports: shortness of breath Interval history since last seen: Patient having SOB, using accessory muscles. Requiring bipap and also has crackles to bilateral lungs, with edema to scrotum with erythema and edema to right upper extremity. Patient was hospitalized recently at [facility] and [facility] He was not placed on bipap last night or when sleeping, therefore went into a COPD exacerbation. Does not appear to be pneumonia clinically with no leukocytosis procal less than 0.1, afebrile. Will place on bipap, give low dose IV lasix as patient is lasix naive. Elevate scrotum and u/s for RUE. Exam Narrative Exam Narrative: General: Patient appears older than stated age, AAOX3, garbled speech HEENT: MMM Neck: Supple without JVD. Lungs: Barreled chest, crackles to bilateral lower lungs. Tychpenic using accessory muscules, place on bipap Heart: Regular rhythm with no murmurs gallops appreciated. Abdomen: Normal contour, soft and nontender to palpation with no palpable hepatosplenomegaly. Obese Extremities: RUE with edema, erythema, all other extremities w/o clubbing edema cyanosis, Neuro: Cranial nerves II through XII was intact, no focalizing motor deficits. No tremor. Objective Last Vital Signs Temp 36.9 C 09/05/21 07:37 Pulse 94 H 09/05/21 10:09 Resp 33 H 09/05/21 10:09 BP 136/79 09/05/21 07:37 Pulse Ox 98 09/05/21 10:09 Laboratory Results - last 24 hr 09/04/21 09/04/21 09/04/21 16:10 17:00 18:10 WBC RBC Hgb Hct MCV MCH MCHC RDW Plt Count MPV Immature Gran % Neutrophils % Lymphocytes % Monocytes % Eosinophils % Basophils % Nucleated RBC % Absolute Neutrophils Absolute Lymphocytes Absolute Monocytes Absolute Eosinophils Absolute Basophils D-Dimer 1042 H ABG Sample Site ABG pH ABG pCO2 ABG pO2 ABG HCO3 ABG Total CO2 ABG O2 Saturation ABG Base Excess VBG Lactate Oxygen Liter Flow FiO2 Sodium 140 Potassium 4.4 Chloride 99 Carbon Dioxide 40.8 H Anion Gap 0.2 L BUN 31 H Creatinine 0.7 Estimated GFR/1.73 m2 >= 60.00 Glucose 130 H Calcium 8.3 L Magnesium 2.2 Total Bilirubin 0.2 AST 21 ALT 17 Alkaline Phosphatase 99 Troponin I 464 H* NT-Pro-B Natriuret Pep Total Protein 6.3 L Albumin 3.1 L Triglycerides Total Cholesterol LDL Cholesterol, Calc HDL Cholesterol Procalcitonin COVID-19 Source Nasopharynx SARS-CoV-2 (PCR) Negative Influenza Type A (PCR) Negative Influenza Type B (PCR) Negative RSV (PCR) Negative Add-On Test Request 09/04/21 09/04/21 09/04/21 18:17 19:10 20:30 WBC 9.36 RBC 3.78 L Hgb 9.9 L Hct 34.3 L MCV 91 MCH 26.2 L MCHC 28.9 L RDW 15.4 H Plt Count 281 MPV 9.8 Immature Gran % 0.5 Neutrophils % 82.7 Lymphocytes % 6.9 Monocytes % 9.7 Eosinophils % 0.1 Basophils % 0.1 Nucleated RBC % 0.0 Absolute Neutrophils 7.73 H Absolute Lymphocytes 0.65 L Absolute Monocytes 0.91 H Absolute Eosinophils 0.01 Absolute Basophils 0.01 D-Dimer ABG Sample Site ABG pH ABG pCO2 ABG pO2 ABG HCO3 ABG Total CO2 ABG O2 Saturation ABG Base Excess VBG Lactate 0.5 L Oxygen Liter Flow FiO2 Sodium Potassium Chloride Carbon Dioxide Anion Gap BUN Creatinine Estimated GFR/1.73 m2 Glucose Calcium Magnesium Total Bilirubin AST ALT Alkaline Phosphatase Troponin I Cancelled NT-Pro-B Natriuret Pep Total Protein Albumin Triglycerides Total Cholesterol LDL Cholesterol, Calc HDL Cholesterol Procalcitonin < 0.1 COVID-19 Source SARS-CoV-2 (PCR) Influenza Type A (PCR) Influenza Type B (PCR) RSV (PCR) Add-On Test Request 09/04/21 09/04/21 09/04/21 20:32 20:45 21:35 WBC RBC Hgb Hct MCV MCH MCHC RDW Plt Count MPV Immature Gran % Neutrophils % Lymphocytes % Monocytes % Eosinophils % Basophils % Nucleated RBC % Absolute Neutrophils Absolute Lymphocytes Absolute Monocytes Absolute Eosinophils Absolute Basophils D-Dimer ABG Sample Site Left Radial Right Radial ABG pH 7.23 L 7.29 L ABG pCO2 > 100 H* 84 H* ABG pO2 85 58 L ABG HCO3 40 H ABG Total CO2 39 H ABG O2 Saturation 96 87 L ABG Base Excess 14 H VBG Lactate Oxygen Liter Flow BIPAP 12/5 BIPAP 15/5 FiO2 40 30 Sodium Potassium Chloride Carbon Dioxide Anion Gap BUN Creatinine Estimated GFR/1.73 m2 Glucose Calcium Magnesium Total Bilirubin AST ALT Alkaline Phosphatase Troponin I 471 H* NT-Pro-B Natriuret Pep Total Protein Albumin Triglycerides Total Cholesterol LDL Cholesterol, Calc HDL Cholesterol Procalcitonin COVID-19 Source SARS-CoV-2 (PCR) Influenza Type A (PCR) Influenza Type B (PCR) RSV (PCR) Add-On Test Request 09/05/21 09/05/21 09/05/21 06:25 06:25 06:25 WBC 5.86 RBC 3.58 L Hgb 9.5 L Hct 32.4 L MCV 91 MCH 26.5 L MCHC 29.3 L RDW 15.3 H Plt Count 214 MPV 9.8 Immature Gran % 0.3 Neutrophils % 85.7 Lymphocytes % 8.5 Monocytes % 5.3 Eosinophils % 0.0 Basophils % 0.2 Nucleated RBC % 0.0 Absolute Neutrophils 5.02 Absolute Lymphocytes 0.50 L Absolute Monocytes 0.31 Absolute Eosinophils 0.00 Absolute Basophils 0.01 D-Dimer ABG Sample Site ABG pH ABG pCO2 ABG pO2 ABG HCO3 ABG Total CO2 ABG O2 Saturation ABG Base Excess VBG Lactate Oxygen Liter Flow FiO2 Sodium 141 Potassium 4.6 Chloride 101 Carbon Dioxide 40.4 H Anion Gap -0.4 L BUN 26 H Creatinine 0.8 Estimated GFR/1.73 m2 >= 60.00 Glucose 114 H Calcium 8.1 L Magnesium Total Bilirubin 0.3 AST 21 ALT 17 Alkaline Phosphatase 89 Troponin I 363 H* NT-Pro-B Natriuret Pep Total Protein 5.9 L Albumin 2.8 L Triglycerides 43 Total Cholesterol 187 LDL Cholesterol, Calc 98 HDL Cholesterol 81 Procalcitonin COVID-19 Source SARS-CoV-2 (PCR) Influenza Type A (PCR) Influenza Type B (PCR) RSV (PCR) Add-On Test Request 09/05/21 09/05/21 06:25 Unknown WBC RBC Hgb Hct MCV MCH MCHC RDW Plt Count MPV Immature Gran % Neutrophils % Lymphocytes % Monocytes % Eosinophils % Basophils % Nucleated RBC % Absolute Neutrophils Absolute Lymphocytes Absolute Monocytes Absolute Eosinophils Absolute Basophils D-Dimer ABG Sample Site ABG pH ABG pCO2 ABG pO2 ABG HCO3 ABG Total CO2 ABG O2 Saturation ABG Base Excess VBG Lactate Oxygen Liter Flow FiO2 Sodium Potassium Chloride Carbon Dioxide Anion Gap BUN Creatinine Estimated GFR/1.73 m2 Glucose Calcium Magnesium Total Bilirubin AST ALT Alkaline Phosphatase Troponin I NT-Pro-B Natriuret Pep 3319 H Total Protein Albumin Triglycerides Total Cholesterol LDL Cholesterol, Calc HDL Cholesterol Procalcitonin COVID-19 Source SARS-CoV-2 (PCR) Influenza Type A (PCR) Influenza Type B (PCR) RSV (PCR) Add-On Test Request DONE
[2021-09-05] MEDS: Triamcinolone 0.1% CR 15 GM TUBE TP (13:28)
[2021-09-05] MEDS: Budesonide/Formoterol 160/4.5 6 GM 60 PUFF INH IH ×2 (13:30→20:16)
--- NOTE | 2021-09-05 15:44 | INITIAL_ITS ---
- If Service Date Differs Date of service: 09/05/21 Time of Service: 15:44 Care Management Initial Assess REASON FOR HOSPITALIZATION:: hypercapnic respiratory failure, COPD exacerbation PAST MEDICAL HISTORY/PAST SURGICAL HISTORY:: All Active Problems. NSTEMI (non- ST elevated myocardial infarction) (Acute). Acute respiratory failure with hypoxia and hypercarbia (Acute). Acute respiratory distress (Acute). HCAP (healthcare-associated pneumonia) (Acute). Acute exacerbation of chronic obstructive pulmonary disease (Acute). Medical History. COPD (chronic obstructive pulmonary disease). HTN (hypertension). Prostate cancer. Surgical History. No significant past surgical history PREVIOUS FUNCTIONAL STATUS/SOCIAL/FAMILY SUPPORTS:: Carlos lives in [facility], but is currently at [facility] for short term rehab. He was recently hospitalized at [facility], who placed him at [facility]. He lives with his , Lizzie. He has six children- two biological, two step children, and two adopted. He was independent before his prolonged hospitalization at [facility]. CURRENT FUNCTIONAL STATUS:: Carlos was sitting up in bed with two of his daughters by his side (Terrie and Altagracia) when CM met with him. He stated that he is feeling better today. Terrie expressed concern regarding him returning to [facility], as she felt that they didn't have enough staff to properly take care of him. She stated that when they visited, he had been sleeping without his Bipap on, which she reported needs to be on him every time he is sleeping. She felt that his hospitalization could have been avoided if they placed his Bipap mask on him properly. She reported that he had only been at [facility] since Monday, and that it is a short term placement. She asked if referrals could be placed to move him. CANDICE explained that referrals could be placed, but that his plan will be to return to [facility] if no bed offers are made prior to him being medically cleared. She asked that referrals be sent to [facility] and [facility]. CM will send these referrals. Carlos is agreeable to other referrals being sent, but he stated that he is happy with the care he received at [facility]. CM will continue to follow. ADVANCE DIRECTIVES:: Not on file. Terrie (daughter) stated that he filled out paperwork at [facility], and made her HC agent. Has patient been provided with info about the portal/API?: Yes Did the patient sign up for the portal?: No CODE STATUS:: Full Code INSURANCE COVERAGE / FINANCIAL ISSUES:: MCR/ BCBS CURRENT HOME/COMMUNITY SERVICES/EQUIPMENT:: Carlos is currently receiving short term rehab at [facility] PRIMARY CARE PHYSICIAN:: Luis Antonio Medina- facility provider POTENTIAL DISCHARGE NEEDS:: Evaluations for further needs, follow up appointments. PATIENT/FAMILY EDUCATION NEEDS:: Review discharge instructions and limitations, discussion of self care needs including ask me three. ANTICIPATED BARRIERS TO DISCHARGE:: None identified at this time. TRANSPORTATION:: Likely via facility w/c van PLAN:: Carlos will likely return to [facility], where he is currently receiving short term rehab. Referrals will be sent to [facility], for possible alternative placement. He will likely transport via facility w/c van. He will follow up with his PCP and discharge plan of care. CM will continue to follow.
[2021-09-06] VITALS (12 sets, daily range): BP systolic 118–147; BP diastolic 60–78; PULSE 57–94; RESP 2–24; TEMP 36.6–37.3; O2SAT 88–98
[2021-09-06 06:36] LABS: Abs Immature Grans 0.05 10^3/uL (0.0-0.06); Absolute Eosinophil Count 0.06 10^3/uL (0.0-0.7); Absolute Lymphocyte Count 1.02 10^3/uL (1.2-3.4); Absolute Monocyte Count 0.92 10^3/uL (0.1-0.8); Absolute Neutrophil Count 4.51 10^3/uL (1.2-6.7); Eosinophils % 0.9; HCT 30.6 % (40.0-50.0); HGB 8.9 g/dL (13.5-17.5); Immature Grans % 0.8; Lymphocytes % 15.5; MCH 25.9 pg (27.0-33.0); MCHC 29.1 % (32.0-36.0); MCV 89 fL (80-95); MPV 9.8 fL (8.0-11.0); Neutrophils % 68.8; Platelet Count 214 10^3/uL (130-400); RBC 3.44 10^6/uL (4.36-5.78); RDW-SD 48.9 fL; WBC 6.56 10^3/uL (4.4-10.8)
[2021-09-06 06:55] LABS: Anion Gap 0.5 mmol/L (3-11); BUN 24 mg/dL (7-18); CO2 39.5 mmol/L (21.0-32.0); CREATININE 0.6 mg/dL (0.70-1.30); Calcium 8.2 mg/dL (8.5-10.1); Chloride 98 mmol/L (98-107); Glucose 84 mg/dL (74-106); Potassium 4.5 mmol/L (3.5-5.1); Sodium 138 mmol/L (136-145)
--- NOTE | 2021-09-06 08:00 | DI.US_ITS ---
Exam(s) US UPPER EXTREMITY VENOUS RT EXAM: US UPPER EXTREMITY VENOUS RT CLINICAL HISTORY: ertyhema, edema, recent PICC placement. TECHNIQUE: Ultrasound examination of the right upper extremity venous system(s) is performed using g rayscale, color-flow, and spectral Doppler analysis. COMPARISON: No exams were available for comparison FINDINGS: The right internal jugular, axillary, cephalic, and brachial vein are patent without evidence of thro mbosis. There is a 1.9 cm occlusive thrombus seen in the right basilic vein proximally. There is a 1 cm long nonocclusive thrombus in the distal right subclavian vein. IMPRESSION: 1. Nonocclusive DVT in the distal right subclavian vein. 2. 1.9 cm occlusive thrombus in the proximal right basilic vein. 3. Results of this exam have been verbally communicated with provider. DATA REPOSITORY:
[2021-09-06] MEDS: Enoxaparin 40 MG/0.4 ML SYR SC (08:38)
[2021-09-06] MEDS: Normal Saline Flush 10 ML SYR IVP ×2 (08:39→15:27)
[2021-09-06] MEDS: Furosemide 20 MG/2 ML VIAL IVP ×2 (08:39→15:26)
[2021-09-06] MEDS: Triamcinolone 0.1% CR 15 GM TUBE TP ×2 (08:39→19:38)
[2021-09-06] MEDS: Dexamethasone 4 MG TAB PO (08:40)
[2021-09-06] MEDS: Aspirin 81 MG CHEW CH (08:40)
[2021-09-06] MEDS: Losartan 50 MG TAB 100 MG PO (08:40)
[2021-09-06] MEDS: Metoprolol CR 25 MG TABCR PO (08:40)
--- NOTE | 2021-09-06 09:10 | CMPROGNOTE_ITS ---
- If Service Date Differs Date of service: 09/06/21 Time of Service: 09:10 Care Management Progress Note S/O: Carlos requires additional monitoring, medical work up and testing. Medicine management includes steroid and short course of eliquis. His ABX have been d/c'd. He is currently 95% on 4 L NC, which is his baseline. Carlos was admitted to [facility] for SNF on Monday. His family requests that additional referrals be sent to [facility]. He will discharge to [facility] if alternate placement is not found. A: 76 year old male admitted to [facility] on 09/04/21 for hypercapnic respiratory failure, COPD exacerbation P: Carlos will likely return to [facility], where he is currently receiving short term rehab. Referrals will be sent to [facility], for possible alternative placement. He will likely transport via facility w/c van. He will follow up with his PCP and discharge plan of care. CM will continue to follow.
[2021-09-06] MEDS: Budesonide/Formoterol 160/4.5 6 GM 60 PUFF INH IH ×2 (09:30→19:39)
[2021-09-06] MEDS: Ipratropium 0.5 MG/2.5 ML UPD VIAL IH ×4 (09:30→19:40)
[2021-09-06] MEDS: Sodium Chloride-Nasal SPRAY-ADULT 44 ML BTL NS ×2 (12:34→22:46)
--- NOTE | 2021-09-06 14:20 | DI.CT_ITS ---
Exam(s) CT CHEST PE CTA EXAM: CT CHEST PE CTA CLINICAL HISTORY: elevated troponin, RUE DVT. TECHNIQUE: Imaging Protocol: Axial CT angiography was performed with multi-slice acquisition and mu lti-planar and/or 3D reconstructions. CONTRAST MATERIAL: Intravenous: Omnipaque 350 Contrast volume:100 mL COMPARISON: CR,XR XR PORTABLE CHEST AP from 09/04/2021 US US UPPER EXTREMITY VENOUS RT from 09/06/2021 FINDINGS: Tracheobronchial tree: Patent where visualized. Pulmonary parenchyma: There is a small right pleural effusion with subjacent infiltrate there is a sm all to moderate size left pleural effusion with subjacent infiltrate. These may represent atelectasi s or pneumonia. Marked centrilobular emphysematous changes are present. Pulmonary Arteries: No evidence of filling defect to suggest pulmonary emboli. Mediastinum and Francoise: No dominant adenopathy or fluid collection. The esophagus is unremarkable. Veins: Filling defects are seen in the distal right subclavian vein and the proximal right basilic ve in. Visualized thyroid gland: Unremarkable. Pleura: No pneumothorax. Heart: The heart is not dilated. Coronary artery calcifications are present. No pericardial effusion . Aorta: Thoracic aorta non-dilated. No evidence of dissection. Atherosclerosis. Upper abdomen: Unremarkable. Soft tissues: There is edema seen in the soft tissues of the chest. Bones: There are marked compression deformities of T7, T8 and T9.They are of indeterminate acuity. IMPRESSION: 1. No evidence of pulmonary embolism, thoracic aortic dissection or aneurysm. 2. Filling defects seen in the distal right subclavian vein in the proximal right basilic veins consi stent with DVT is identified on the ultrasound from earlier in the day. 3. Marked compression deformities of T7, T8 and T9. They are of indeterminate acuity. 4. Results of this exam have been verbally communicated with provider. RADIATION DOSE DELIVERED: 474.37mGy.cm Total DLP DATA REPOSITORY: All CT scans at this facility are submitted to the National Radiology Data Registry (NRDR) Dose Index Registry (DIR) with the [employer] ([employer]). RADIATION OPTIMIZATION: All CT scans at this facility use at least one of these dose optimization te chniques: automated exposure control; mA and/or kV adjustment per patient size (includes targeted exa ms where dose is matched to clinical indication); or iterative reconstruction.
--- NOTE | 2021-09-06 14:31 | PGE_ITS ---
Date of Service Date of service: 09/06/21 Time of Service: 13:31 Assessment and Plan Assessment and plan (1) Acute respiratory failure with hypoxia and hypercarbia: Start date: 09/04/21 Status: Acute Assessment and plan: improving. initially thought to be d/t copd exacerbation but suspect possible PE in setting of elevated troponin and positive DVT study of RUE full anticoagulation added on 4 l/nc chronically at baseline. (2) Acute exacerbation of chronic obstructive pulmonary disease: Start date: 09/04/21 Status: Acute Assessment and plan: continue respiratory inhalers. will change dexamethasone to prednisone per recommended guidelines and dosing. will monitor for adverse reaction but unlikely since tolerating dexamethasone. (3) HCAP (healthcare-associated pneumonia): Start date: 09/04/21 Status: Ruled-out Assessment and plan: ruled out, antibiotics stopped (4) NSTEMI (non-ST elevated myocardial infarction): Start date: 09/04/21 Status: Acute Assessment and plan: Patient had elevation in troponins and is allergic to statins but already on metoprolol which will be continued with aspirin initiated. no chest pain troponins elevated and remain flat, awaiting echo and CT for PE Patient's CODE STATUS should be reevaluated with his severe lung disease, pallia tive care consulted. (5) Deep vein thrombosis, upper right extremity: Status: Acute Assessment and plan: will start on eliquis confirmed by ultrasound. Subjective Subjective Patient reports: no new complaints, feels better, tolerating liquids well, tolerating a regular diet and afebrile Interval history since last seen: reports breathing improved at close to baseline/ Exam Const General: cooperative Orientation: alert, awake and oriented x3 HENMT Head: normal to inspection General nose exam: external nose normal Face and sinus: normal facial exam Mouth: oral mucosae normal Eyes General: appearance normal, both eyes and all related structures Eyelids: eyelids normal EOM: EOM intact bilaterally Neck Neck: normal visual inspection Chest Chest: normal inspection of the chest Resp Effort & Inspection: normal respiratory effort Auscultation: diminished lung sounds (throughout, no wheezing or rhonchi) Cardio Rate: regular rate Rhythm: regular rhythm GI Inspection: normal to inspection Palpation: soft and nontender Auscultation: normal bowel sounds Skin General skin exam: no rashes or lesions noted Neuro General: patient alert and patient awake Cognition: normal cognition Speech: speech normal Motor: muscle tone normal throughout Sensory Exam: no sensory deficits noted Extrem General: normal to inspection and full ROM Psych Appearance: grossly normal Mental Status: mental status grossly normal Speech and Movement: speech and movement normal Affect: normal affect Thought Process: normal Objective Last Vital Signs Temp 37.2 C 09/06/21 11:53 Pulse 94 H 09/06/21 12:24 Resp 20 09/06/21 12:24 BP 118/64 09/06/21 11:53 Pulse Ox 95 09/06/21 12:24 Laboratory Results - last 24 hr 09/04/21 09/06/21 09/06/21 20:32 06:15 06:15 WBC 6.56 RBC 3.44 L Hgb 8.9 L Hct 30.6 L MCV 89 MCH 25.9 L MCHC 29.1 L RDW 15.0 H Plt Count 214 MPV 9.8 Immature Gran % 0.8 Neutrophils % 68.8 Lymphocytes % 15.5 Monocytes % 14.0 Eosinophils % 0.9 Basophils % 0.0 Nucleated RBC % 0.0 Absolute Neutrophils 4.51 Absolute Lymphocytes 1.02 L Absolute Monocytes 0.92 H Absolute Eosinophils 0.06 Absolute Basophils 0.00 ABG HCO3 ABG Base Excess Sodium 138 Potassium 4.5 Chloride 98 Carbon Dioxide 39.5 H Anion Gap 0.5 L BUN 24 H Creatinine 0.6 L Estimated GFR/1.73 m2 >= 60.00 Glucose 84 Calcium 8.2 L Magnesium 2.0
[2021-09-06] MEDS: predniSONE 20 MG TAB PO (14:56)
[2021-09-06] MEDS: Apixaban 5 MG TAB 10 MG PO ×2 (14:58→22:45)
--- NOTE | 2021-09-06 16:40 | IN_ITS ---
Date of service: 09/06/21 Time of Service: 16:40 PT Notes Visit Reasons: Hypercapnic Respiratory Failure, COPD Exacerbation Physical Therapy Inpatient Initial Evaluation Date: 09/06/2021 Referring Doctor: Lindsey Salas NP PT Orders: PT CONSULT: Eval/Treat Precautions: Fall. Standard. Activity as tolerated. Patient Profile/Admitting Diagnosis: Carlos is a 76-year-old male who presented to the ED on 09/04/2021 from the [facility] due to hypoxia and CPAP leakage. Patient is diagnosed with acute respiratory failure with hypoxia, COPD exacerbation, NSTEMI, and right UE DVT. PMHX: All Active Problems? NSTEMI (non-ST elevated myocardial infarction) (Acute) Acute respiratory failure with hypoxia and hypercarbia (Acute) Acute respiratory distress (Acute) HCAP (healthcare-associated pneumonia) (Acute) Acute exacerbation of chronic obstructive pulmonary disease (Acute) Medical History? COPD (chronic obstructive pulmonary disease) HTN (hypertension) Prostate cancer Surgical History? No significant past surgical history Social History/Home Situation: Lives alone in a private home with 2 steps to enter however patient states that once he goes home from SNF he will be headed back to his daughter's house with 4 steps to enter with rails on both sides. Daughter and daughter's family will be providing all the care that he needs as he recovers at their house. Ambulatory inside his house without an assistive device although he states that he has been doing a lot of holding onto furnitures because of a chronic balance issue. Equipment Owned/DME: None Subjective: Reports that he feels a lot better than he did 2 days ago. Agreeable to PT consult. States that he will be going to his daughter's house when he gets discharged from this hospital and SNF. Denies headache, chest pain, and dizziness throughout session. Am not really that invalid... . Objective: General Observation: Supine in bed Telemetry monitoring in place. Vivas catheter in place. On 3 L of oxygen per minute via NC. Emptied 950 mL of urine from vivas bag prior to ambulation. Mental Status: Alert and oriented as to person, place, time, and purpose. Able to pay attention, focus, and respond appropriately. Speech sometimes can get a little garbled. Pain: Denies Vital Signs: Oxygen saturation at rest 95% on 3 L of oxygen via NC. Desaturation to 85% after ambulation activity, required about 2 to 3 minutes of seated rest before being titrated back up to 92% on 3 L of oxygen ROM: Right Upper Extremity: Shoulder Flexion WFL. Shoulder abduction WFL. Elbow flexion WFL. Wrist flexion WFL. Functional opening and closing of hand WFL. Left Upper Extremity: Shoulder Flexion WFL. Shoulder abduction WFL. Elbow flexion WFL. Wrist flexion WFL. Functional opening and closing of hand WFL. Right Lower Extremity: Hip flexion WFL. Hip abduction WFL. Knee flexion WFL. Ankle dorsiflexion WFL. Ankle plantarflexion WFL. Left Lower Extremity: Hip flexion WFL. Hip abduction WFL. Knee flexion WFL. Ankle dorsiflexion WFL. Ankle plantarflexion WFL. Strength: Right Upper Extremity: Shoulder flexors 4-/5. Shoulder abductors 4-/5. Elbow flexors 4/5. Elbow extensors 4-/5. Offset Platemaker strong. Left Upper Extremity: Shoulder flexors 4-/5. Shoulder abductors 4-/5. Elbow flexors 4/5. Elbow extensors 4-/5. Offset Platemaker strong. Right Lower Extremity: Hip flexors 4-/5. Hip abductors 4-/5. Knee flexors 5/5. Knee extensors 4-/5. Ankle dorsiflexors 4-/5. Ankle plantarflexors 4/5. Left Lower Extremity: Hip flexors 4-/5. Hip abductors 4-/5. Knee flexors 5/5. Knee extensors 4-/5. Ankle dorsiflexors 4-/5. Ankle plantarflexors 4/5. Bed Mobility/Transfers: Supine to sit with standby assist and minimal difficulty Sit to stand with contact-guard assist Stand to sit with standby assist Bed to reclining chair with contact-guard assist Gait: Instructed patient with level surface ambulation of 60 feet requiring contact-guard assist. Tanesha decreased. Desaturated to 85% immediately after completion of ambulation activity but very saturated back to 92% on 3 L of oxygen with 2 to 3 minutes of rest. Balance: Static Sitting: Normal Dynamic Sitting: Normal Static Standing: Fair Dynamic Standing: Fair Special Tests: Mobility Limitations Standardized Measure [facility] AM-PAC 6 clicks Basic Mobility Inpatient Short Form: Raw Score: 19 CMS Score: 42% deficit Informed Consent/Education: Patient was instructed in purpose of PT consult and plan of care and is agreeable to proceed with established PT POC to achieve personal goals. Assessment: Carlos demonstrates functional mobility decline requiring the use of front-wheeled walker and the assistance of 1 caregiver for all mobility ADL performance. Has been on chronic oxygen supplementation however for this admission patient desaturates down to as low as 85% even with 3 L of oxygen per minute during ambulation activity but is able to recover with seated wrist after 2 to 3 minutes. Patient presents with clinical signs and symptoms consistent with current/admitting diagnoses that have resulted to mobility limitations, gait instability, generalized weakness, and overall ADL decline as demonstrated by the following impairment level findings: 1. Decreased strength to B UE LE major muscle groups 2. Impaired standing balance 3. Impaired activity tolerance 4. Shortness of breath on exertion Impairments are contributing to the following functional limitations: 1. Decline in bed mobility skills 2. Decline in transfer skills 3. Difficulty with ambulation without assistive device and physical assistance 4. Increased completion time for mobility ADL performance 5. Increased risk for falls 6. Difficulty with managing steps alone safely Patient is assessed as a 88243 moderate complexity based on the following: History: 26-year-old male with past medical history as indicated above Examination: Demonstrable impairment in strength, balance, and mobility level with underlying impairments and functional limitations as exhibited above as well as deficit score of 42% utilizing the [facility] Mobility Inpatient Short Form Presentation: Evolving 88964 moderate complexity Decision Making: complexity Goals: Goals X1 week 1. Supine-Sit independent 2. Sit-Supine independent 3. Sit-Stand independent 4. Stand-Sit independent with no AD 5. Bed-Chair independent with no AD 6. Chair-Bed independent with no AD 7. Independent gait on level surface with use of no AD for at least 100feet without report of pain nor dyspnea 8. Independent stair negotiation while holding onto B rails for at least 5 steps without report of pain nor dyspnea 9. Good static and dynamic standing balance/tolerance Plan of Care/Treatment Plan: 1-2x/day, 7 days/week x 1 week. Plan of care has been reviewed with the PIGMENT WEIGHER providing the service under Physical Therapy direction. Initiate Physical Therapy intervention for pain management as needed, strengthening, bed mobility, transfers, gait, stairs, balance training, and use of assistive device. DISCHARGE RECOMMENDATIONS: [] Home with no services [] [] Home with services [specify] [] Home with outpatient PT [] [X] SNF for continued rehabilitation. Return to SNF when medically cleared by hospitalist. Will assess appropriateness of either front wheeled walker or single-point cane upon discharge. [] Detention Care [] [] SNF versus LTC based on ability to participate and progress [] TREATMENT CODE/TIME: 08836 x 20 minutes, 55490 x 9 minutes beginning at 16:40 PM. Thank you for the opportunity to participate in the care of this patient. Gali Rivera PT, DPT, CLT [facility] [place], [place]
[2021-09-06 20:17] LABS: Legionella Ag Detection Urine Negative (Negative)
[2021-09-07 04:08] VITALS: BP 161/63; PULSE 82; RESP 18; TEMP 36.2; O2SAT 96
[2021-09-07 06:54] VITALS: PULSE 74
[2021-09-07] MEDS: Fluticasone NASAL SPRAY 16 GM BTL NS (07:35)
[2021-09-07] MEDS: Furosemide 20 MG/2 ML VIAL IVP (07:36)
[2021-09-07] MEDS: Triamcinolone 0.1% CR 15 GM TUBE TP (07:36)
[2021-09-07] MEDS: Normal Saline Flush 10 ML SYR IVP (07:37)
[2021-09-07] MEDS: Apixaban 5 MG TAB 10 MG PO (07:38)
[2021-09-07] MEDS: predniSONE 20 MG TAB 40 MG PO (07:38)
[2021-09-07] MEDS: Losartan 50 MG TAB 100 MG PO (07:39)
[2021-09-07] MEDS: Metoprolol CR 25 MG TABCR PO (07:39)
[2021-09-07] MEDS: Aspirin 81 MG CHEW CH (07:39)
[2021-09-07 07:47] VITALS: BP 174/77; PULSE 87; RESP 19; TEMP 36.6; O2SAT 84
--- NOTE | 2021-09-07 08:00 | DI.US_ITS ---
APPROVED REPORT EXAM: Comprehensive 2D, Doppler, and color-flow Echocardiogram Patient Location: In-Patient Room/Bed: 227 Mold Preparer: Tammie Jay RDCS (AE) Indications: Non Stemi with respiratory failure, COPD, SOB Other Information Study Quality: Fair. Technically limited study due to body habitus, inability to position patient exa m done supine. Conclusion Normal left ventricular wall thickness and chamber size. Estimated ejection fraction is 55%. There are no segmental wall motion abnormalities Right ventricle is mildly dilated and appears mildly diffusely hypocontractile Normal left atrial size. The right atrium is mildly enlarged Trileaflet aortic valve without stenosis or regurgitation Normal mitral valve with moderate regurgitation Normal tricuspid valve with mild to moderate regurgitation. Estimated right ventricular systolic pre ssure is 54 mmHg Wall motion Left Ventricle The left ventricle is normal size. Left ventricular systolic function is normal There is normal left ventricular wall thickness. Regional wall motion is grossly normal. There is no ventricular septal de fect visualized. LVEF is 55%. Right Ventricle Right ventricle is mildly dilated. Right ventricle is mildly hypokinetic. The RVSP is 54.2_ mmHg. Atria The left atrium size is normal. Right atrium is mildly dilated. The interatrial septum is intact with no evidence for an atrial septal defect. Aortic Valve The aortic valve is normal in structure. Aortic valve is trileaflet. There is no aortic valvular sten osis. No aortic regurgitation is present. Mitral Valve The mitral valve is normal in structure. No evidence of mitral valve stenosis. Moderate mitral regurg itation. Tricuspid Valve The tricuspid valve is normal in structure. There is no tricuspid valve stenosis. Mild to moderate tr icuspid regurgitation. Pulmonic Valve The pulmonary valve is normal in structure. There is no pulmonic valvular stenosis. Trace pulmonic re gurgitation. Great Vessels The aortic root is normal in size. Ascending aorta is not well visualized. Aortic arch is not well vi sualized. The IVC collapses <50% with inspiration. Pericardium There is no pericardial effusion. 2D Dimensions IVSD d PLAX 0.97 cm M: 0.6-1.2 LV Vol A2C d MOD 77.2 mL LVPW d PLAX 0.96 cm M: 0.6 - 1.2 LV Vol A4C d MOD 93.1 mL LVID d PLAX 4.71 cm M: 4.2 - 5.8 LA vol/ BSA A2C s A-L 8.7 mL/m2 LVDs 3.40 cm M: 2.5 - 4.0 LA vol/ BSA A4C s A-L 21.5 mL/m2 Ao Root d 2.82 cm M: 3.1 - 3.7 LA Vol/ BSA Biplane s A-L 17.5 mL/m2 RA Area A4C 14.87 cm2 LA Area A4C s MOD 15.24 cm2 RA Vol/ BSA A4C s A-L 22.3 mL/m2 LA Area A2C s MOD 7.63 cm2 LV EF Teichholz 52.5 % LV EF A4C MOD 50.5 % LVEF (Cardenas's) 54.35 % M: 52 - 72 LV EF A2C MOD 55.2 % LV Volume 68.67 mL M: 62 - 150 LV EF Biplane MOD 54.3 % LV Volume Index 37.52 mL/m2 M: 34 - 74 SV 48.26 mL LV Vol Biplane MOD 88.8 mL SV Index 26.38 mL/m2 FS 26.90 % M-Mode TAPSE 2.48 cm (M/F) >1.7 LV Diastology MV E' medial 0.060 (>0.07 m/s) E/A Ratio 0.8 LV E/e MED 12.15 (<14) MV E Vmax 0.73 (0.4-1.3 m/s) MV E' lateral 0.096 (>0.1 m/s) MV A Vmax 0.95 (0.4-1.3 m/s) LV E/e LAT 7.60 (<14) MV E/A Ratio 0.76 MV E/E' medial 12.16 MV E/E' lateral 7.63 Aortic Valve LVOT Area 3.29 cm2 AoV Area Vmax 2.10 cm2 LVOT Vmax 0.79 m/s AoV Area/ BSA (Vmax) 1.15 cm2/m2 LVOT Mean Jhonatan. 0.56 m/s RANJAN Mean Jhonatan. 2.08 cm2 LVOT Peak Grad 2.5 mmHg RANJAN Mean Jhonatan. Index 1.14 cm2/m2 LVOT Mean Grad 1.4 mmHg LVOT VTI 0.162 m LVOT Diam s 2.00 cm AoV Vmax 1.24 m/s Velocity Ratio 0.63 AoV Mean Jhonatan. 0.88 m/s AoV Peak Grad 6.1 mmHg LVOT SV 53.20 mL AoV Mean Grad 3.5 mmHg AoV VTI 0.198 m AoV Area VTI 2.68 cm2 AoV Area/ BSA (VTI) 1.47 cm/m2 Mitral Valve MV DT 390 (160-240 msec) MR Vmax 6.29 m/s MV PHT 113 msec MR VTI 1.332 m MV Area PHT 1.95 cm2 MR Peak Grad 158.3 mmHg MV VTI 0.328 m MR Mean Grad 98.2 mmHg MV Area VTI 1.62 (4.0-6.0 cm2) Pulmonary Valve PV Vmax 1.12 (0.5-1.5 m/s) RVOT Peak Gr. 2.29 mmHg PV Peak Grad 5.1 mmHg RVOT Mean Gr. 1.30 mmHg PV Mean Grad 2.9 mmHg RVOT VTI 0.168 m PV VTI 0.226 m RVOT Vmax 0.76 m/s Tricuspid Valve TR Peak Grad 46.1 mmHg TR Vmax 3.40 m/s RA Pressure 8.00 mmHg RVSP (TR) 54.2 mmHg
[2021-09-07] MEDS: Budesonide/Formoterol 160/4.5 6 GM 60 PUFF INH IH (08:30)
--- NOTE | 2021-09-07 08:31 | PDOC.CMPRO ---
- If Service Date Differs Date of service: 09/07/21 Time of Service: 08:31 Care Management Progress Note S/O: Carlos was admitted to [facility] on 09/04/21 from [facility], and will likely be ready to discharge back there later today. Carlos is currently 95% on 4 L NC, which is his baseline. He has refused his his Bi-pap and Cpap during this stay, due to the mask being uncomfortable. CM notified RT and if Carlos is not discharging today his home machine could be set up here. CM LMOM advising pts daughter, as she questioned why he was not wearing a CPAP at night. CM notified patient's Lizzie, his daughter Terrie and [facility] about potential discharge. CM will continue to support discharge planning need. A: 76 year old male admitted to [facility] on 09/04/21 for hypercapnic respiratory failure, COPD exacerbation P: Carlos will likely return to [facility], where he is currently receiving short term rehab. Referrals will be sent to [facility], for possible alternative placement. He will likely transport via facility w/c van. He will follow up with his PCP and discharge plan of care. CM will continue to follow.
[2021-09-07 08:32] VITALS: RESP 16; RESP 8; O2SAT 95
[2021-09-07] MEDS: Ipratropium 0.5 MG/2.5 ML UPD VIAL IH ×2 (08:32→11:37)
--- NOTE | 2021-09-07 11:18 | PTTR_ITS ---
Date of service: 09/07/21 Time of Service: 10:51 PT Notes Visit Reasons: Hypercapnic Respiratory Failure, COPD Exacerbation Inpatient Physical Therapy Treatment Note [facility] Date: 09/07/2021 PRECAUTIONS: Fall, Activity as tolerated SUBJECTIVE: Carlos is pleasant and agreeable to participating in PT. He is asking for information about the testing that he had done this morning. OBJECTIVE: PAIN: No c/o pain BED MOBILITY/TRANSFERS Supine-sit: I Sit-stand: S Stand-sit: S GAIT Assistive Device: FWW Weight bearing: Full Assist: S Distance: 60' x2 Deviation: Stand rest x1 due to SOB VITALS: SaO2: 90-96% on 4L O2 with gait training. Patient dropped to 87% on 4L O2 x~30 seconds post ambulation once seated. Recovery back to 92% took ~1 minute. ASSESSMENT: Patient tolerated session with c/o increased SOB. He requires sta nding rest with gait training due to SOB. Recommend return to SNF-level rehab for continued conditioning prior to returning to daughter's home with caregiver. PLAN: Patient to discharge back to SNF-level rehab later today, per provider. TREATMENT CODE/TIME: 24 minutes; 62087 x2 (10:51)
[2021-09-07 11:37] VITALS: BP 126/62; PULSE 98; RESP 14; RESP 19; RESP 8; TEMP 37.2; O2SAT 94; O2SAT 97
--- NOTE | 2021-09-07 12:06 | W.PM.DS.N ---
DS: Diagnosis Discharge Diagnosis (1) Acute respiratory failure with hypoxia and hypercarbia: Status: Acute Asessment and Plan: PE ruled out by ct scan no pneumonia (2) Acute exacerbation of chronic obstructive pulmonary disease: Status: Acute Asessment and Plan: continue steroid burst. feels at baseline is on 4 l/nc which is his baseline oxygen (3) NSTEMI (non-ST elevated myocardial infarction): Status: Acute Asessment and Plan: troponins remained flat, thought d/t strain from hypoxia further outpatient evaluation per outpatient team as appropriate EXAM: Comprehensive 2D, Doppler, and color-flow Echocardiogram Patient Location: In-Patient Room/Bed:[facility] Manufacturing Accountant: Tammie Jay RDCS (AE) Indications: Non Stemi with respiratory failure, COPD, SOB Other Information Study Quality: Fair. Technically limited study due to body habitus, inability to position patient exam done supine. Conclusion Normal left ventricular wall thickness and chamber size.? Estimated ejection fraction is 55%.? There are no segmental wall motion abnormalities Right ventricle is mildly dilated and appears mildly diffusely hypocontractile Normal left atrial size.? The right atrium is mildly enlarged [place] aortic valve without stenosis or regurgitation Normal mitral valve with moderate regurgitation Normal tricuspid valve with mild to moderate regurgitation.? Estimated right ventricular systolic pressure is 54 mmHg (4) Deep vein thrombosis, upper right extremity: Status: Acute Asessment and Plan: likely from catheter while hospitalized will need eliquis 3-6 months per outpatient provider eliquis 10 mg po bid through September 12, then on September 13 start 5 mg po bid Discharge Plan Disposition Patient Disposition: SNF (LEVEL 1) [facility] Condition: Stable Discharge Details Reason For Visit: Hypercapnic Respiratory Failure,COPD exacerbation, Admit Date/Time: 09/04/21 23:21 Admit Provider: Ton Schofield Attending Provider: Ton Schofield Primary Care Provider: Luis Antonio Medina Hospital Course Hospital Course: This is a 76-year-old gentleman who has chronic respiratory failure who presented with malfunctioning CPAP and the [facility] facility where he was recovering from recent hospitalization with severe COPD exacerbation requiring intubation at least twice.? He also had a pneumonia over the left lower lobe which was thought to be persisting so he was started on treatment for hospital-acquired pneumonia with Zosyn and vancomycin in the ED.? He improved with BiPAP and clearing his hypercapnia. He was admitted to med/surg and after further evaluation, thought not to have pneumonia and antiboitics stopped. He was diuresed with lasix and started on steriods for copd exacerbation. He was transitioned to prednisone, which he lists as an allergy but tolerated well (reaction was agitation). His troponin also elevated at 400 and remained flat, thought to be demand from hypoxia. His echo showed no segmental wall motion abnormalities with an estimated EF of 55%. RVSP 54. His EKG no acute st segment changes. He reported no chest pain and remained hemodynamically stable. will defer further cardiac evaluation per outpatient team. He returned to his baseline of 4 l/nc and states his breathing feels at baseline as well. ultrasound of right upper extremity shows DVT and he was started on eliquis. He should take 10 mg PO bid through September 12, then drop to 5 mg PO bid on September 13. He is stable and ready for discharge back to [facility] and rehab. PT did evaluate him here and feels he still needs that level of care for now. discharge discussed with Dr Marx He is discharged back by wheelchair van. Home Meds and New Rx's Prescriptions: New prednisone 20 mg Tablet 40 mg PO DAILY Qty: 0 0RF Eliquis 5 mg Tablet 10 mg PO BID Qty: 0 0RF Eliquis 5 mg Tablet 5 mg PO BID Qty: 0 0RF Continued azithromycin 250 mg Tablet 250 mg PO QAM calcipotriene 0.005 % Cream 1 applic TOPICAL DAILY calcipotriene 0.005 % Solution 1 applic TOPICAL DAILY ketoconazole 2 % Shampoo 1 applic TOPICAL DIRECTED losartan 100 mg Tablet 100 mg PO DAILY metoprolol succinate 25 mg Tablet Extended Release 24 Hr 25 mg PO DAILY Spiriva Respimat 2.5 mcg/actuation Mist 2 puff INHALATION DAILY budesonide-formoterol 160-4.5 mcg/actuation Hfa Aerosol Inhaler 2 puff INHALATION BID clobetasol 0.05 % Ointment 1 applic TOPICAL BID docusate sodium 100 mg Capsule 100 mg PO BID fluticasone propionate 50 mcg/actuation [place],Suspension 2 spray INTRANASAL BID tacrolimus 0.1 % Ointment 1 applic TOPICAL BID triamcinolone acetonide 0.1 % Cream 1 applic TOPICAL BID ipratropium bromide 0.02 % Solution 0.5 mg inhalation QID pimecrolimus 1 % Cream 1 applic TOPICAL BID PRN Discharge Instructions Instructions: Deep Vein Thrombosis (DC), COPD (Chronic Obstructive Pulmonary Disease) (DC) Additional Instructions: continue steroid burst for 4 more days. He experienced no adverse reaction while hospitalized (states it makes him angry). continue eliquis 10 mg twice daily through September 12, then on September 13 start 5 mg twice daily until directed by your doctor. This blood clot in your arm is likely due to a recent IV line you had in that arm. Stand Alone Forms: Nursing Discharge Form Referrals: Luis Antonio Medina [Primary Care Provider] - Activity:: Activity as Tolerated Equipment/Supplies:: No Equipment Needed Diet:: As Tolerated Discharge Orders Discharge Orders: Discharge Order (Routine); Ordered 09/07/21 Ordered By: Lindsey Salas DS: Summary Time Spent with Patient providing and/or coordinating discharge services: Greater than 30 minutes Status at Discharge Functional status at discharge: uses cane/walker Overall status at discharge: patient is back to baseline Mental Status: mental status grossly normal Speech and Movement: speech and movement normal Mood: congruent mood Affect: normal affect Exam Const General: cooperative Orientation: alert, awake and oriented x3 HENMT Head: normal to inspection General nose exam: external nose normal Face and sinus: normal facial exam Mouth: oral mucosae normal Eyes General: appearance normal, both eyes and all related structures Eyelids: eyelids normal EOM: EOM intact bilaterally Neck Neck: normal visual inspection Chest Chest: normal inspection of the chest Resp Effort & Inspection: normal respiratory effort Auscultation: diminished lung sounds (throughout, no wheezing or rhonchi) Cardio Rate: regular rate Rhythm: regular rhythm GI Inspection: normal to inspection Palpation: soft and nontender Auscultation: normal bowel sounds Skin General skin exam: no rashes or lesions noted Neuro General: patient alert and patient awake Cognition: normal cognition Speech: speech normal Motor: muscle tone normal throughout Sensory Exam: no sensory deficits noted Extrem General: normal to inspection and full ROM Psych Appearance: grossly normal Mental Status: mental status grossly normal Speech and Movement: speech and movement normal Mood: congruent mood Affect: normal affect Thought Process: normal DS: Data Vitals/I&O Vitals and I&O: Vital Signs Temperature 37.2 C 09/07/21 11:37 Temperature Source Tympanic 09/07/21 11:37 Pulse 98 H 09/07/21 11:37 Pulse Rhythm Regular 09/07/21 04:10 Pulse 85 09/05/21 01:20 Respiratory Rate 19 09/07/21 11:37 Respiratory Effort Non-Labored 09/07/21 04:10 Respiratory Depth Normal 09/07/21 04:10 Respiratory Pattern Normal 09/07/21 04:10 Blood Pressure 126/62 09/07/21 11:37 Blood Pressure Mean 67 09/05/21 01:16 Pulse Oximetry 97 09/07/21 11:37 Oxygen Delivery Method Nasal Cannula 09/07/21 11:37 Oxygen Flow Rate 3 09/07/21 11:37 Fraction of Inspired Oxygen (FIO2) 30 09/05/21 10:09 Pain Level 0 09/07/21 11:37 Comment 09/07/21 07:47 Intake & Output 09/06/21 09/07/21 09/07/21 23:59 11:59 23:59 Intake Total 240 / 640 480 / 480 Output Total 650 / 1325 1500 / 1500 Balance -410 / -685 -1020 / -1020 Weight 71.7 kg Intake: Oral 240 / 640 480 / 480 Output: Urine 650 / 1325 1500 / 1500 Other: Urine Color Pale Pale Yellow Yellow Urine Appearance Clear Clear Stool Size Moderate Stool Characteristics Soft Formed Brown Data Completed and Pending Labs on day of discharge: Labs from last 24 hours 09/05/21 12:10 Urine Legionella Ag Negative Preliminary micro results at discharge 09/04/21 21:25 Blood Culture - Preliminary Blood NO GROWTH 48 HOURS 09/04/21 20:45 Blood Culture - Preliminary Blood NO GROWTH 48 HOURS PFSH All Active Problems (Updated 09/06/21 @ 14:42 by Lindsey Salas NP) Deep vein thrombosis, upper right extremity (Acute) NSTEMI (non-ST elevated myocardial infarction) (Acute) Acute respiratory failure with hypoxia and hypercarbia (Acute) Acute respiratory distress (Acute) Acute exacerbation of chronic obstructive pulmonary disease (Acute) Medical History COPD (chronic obstructive pulmonary disease) HTN (hypertension) Prostate cancer Surgical History No significant past surgical history Social History Smoking/Tobacco Use Status: Former Tobacco Use Smoking risk assessment performed?: Yes Alcohol Intake: current Substance use type: does not use Do you feel safe at home: Yes Do you feel safe in your relationship?: Yes
--- NOTE | 2021-09-07 13:24 | PDOC.CMDIS ---
- If Service Date Differs Date of service: 09/07/21 Time of Service: 13:24 LACE Index Scoring Tool - Questions: Length of Stay (in days): 3 Acuity (Admit via E.D.?): Yes Comorbidities: Previous M.I., Chronic Pulmonary Disease, Any Tumor E.D. Visits: 1 - Answers: Total Score: 12 Risk of Readmission: High Risk Care Management Discharge Reason for Hospitalization: hypercapnic respiratory failure, COPD exacerbation Discharge Plan: Carlos was discharged back to [facility] to continue STR prior to returning home via facility w/c van. Per Skylar covid test is not needed prior to admission, as they will do a rapid covid test there. Carlos agrees to the discharge plan of care as prescribed, including using his Bi-pap at and working with PT. His goal is to become strong enough to discharge home. His Radha and daughter Terrie are advised of this plan and agree. Carlos will have a palliative care consult following discharge. Patient/Family Education Needs: Review discharge instructions, limitations, medications and plan to follow up with community providers. ask me three. Services Needed at Discharge: Senior Living Facility ([facility] Transportation (via facility van)
[2021-09-07 15:08] VITALS: PULSE 103
--- NOTE | 2021-09-07 19:00 | PT.INDS ---
Date of service: 09/07/21 PT Notes Visit Reasons: Hypercapnic Respiratory Failure,COPD exacerbation, Physical Therapy Inpatient Discharge Summary Date: 09/07/2021 Dates of service: 09/06/2021 through 09/07/2021 This is a clinical summary of care provided for the duration of dates listed above. No charge was made in the completion of this documentation. Referring Doctor: Lindsey Salas NP PT Orders: PT CONSULT: Eval/Treat Precautions: Fall. Standard. Activity as tolerated. Patient Profile/Admitting Diagnosis:Ivett Gonzalez is a 76-year-old male who presented to the ED on 09/04/2021 from the [facility] rehab due to hypoxia and CPAP leakage.? Patient is diagnosed with acute respiratory failure with hypoxia, COPD exacerbation, NSTEMI, and right UE DVT. PMHX: All Active Problems? NSTEMI (non-ST elevated myocardial infarction) (Acute) Acute respiratory failure with hypoxia and hypercarbia (Acute) Acute respiratory distress (Acute) HCAP (healthcare-associated pneumonia) (Acute) Acute exacerbation of chronic obstructive pulmonary disease (Acute) Medical History? COPD (chronic obstructive pulmonary disease) HTN (hypertension) Prostate cancer Surgical History? No significant past surgical history Social History/Home Situation: Lives alone in a private home with 2 steps to enter however patient states that once he goes home from SNF he will be headed back to his daughter's house with 4 steps to enter with rails on both sides.? Daughter and daughter's family will be providing all the care that he needs as he recovers at their house.? Ambulatory inside his house without an assistive device although he states that he has been doing a lot of holding onto furnitures because of a chronic balance issue. Equipment Owned/DME: None Subjective: NT. See most recent COURT ASSISTANT notes. Objective: General Observation: NT. See most recent COURT ASSISTANT notes. Mental Status: NT. See most recent COURT ASSISTANT notes. Pain: NT. See most recent COURT ASSISTANT notes. Vital Signs: NT. See most recent COURT ASSISTANT notes. ROM: Right Upper Extremity: ? Shoulder Flexion WFL. Shoulder abduction WFL. Elbow flexion WFL. Wrist flexion WFL. Functional opening and closing of hand WFL. Left Upper Extremity:? Shoulder Flexion WFL. Shoulder abduction WFL. Elbow flexion WFL. Wrist flexion WFL. Functional opening and closing of hand WFL. Right Lower Extremity: Hip flexion WFL. Hip abduction WFL. Knee flexion WFL. Ankle dorsiflexion WFL. Ankle plantarflexion WFL. Left Lower Extremity: Hip flexion WFL. Hip abduction WFL. Knee flexion WFL. Ankle dorsiflexion WFL. Ankle plantarflexion WFL. Strength: Right Upper Extremity: Shoulder flexors 4-/5. Shoulder abductors 4-/5. Elbow flexors 4/5. Elbow extensors 4-/5. Forestry Technical Officer strong. Left Upper Extremity: Shoulder flexors 4-/5. Shoulder abductors 4-/5. Elbow flexors 4/5. Elbow extensors 4-/5. Forestry Technical Officer strong. Right Lower Extremity: Hip flexors 4-/5. Hip abductors 4-/5. Knee flexors 5/5. Knee extensors 4-/5. Ankle dorsiflexors 4-/5. Ankle plantarflexors 4/5. Left Lower Extremity: Hip flexors 4-/5. Hip abductors 4-/5. Knee flexors 5/5. Knee extensors 4-/5. Ankle dorsiflexors 4-/5. Ankle plantarflexors 4/5. Bed Mobility/Transfers: Supine to sit with independent Sit to stand with supervision Stand to sit with supervision Bed to reclining chair with supervision Gait: Instructed patient with level surface ambulation of 60 feet rx 2 requiring supervision. Tanesha decreased.?90-96% on 4L/min via NC. Balance: Static Sitting: Normal Dynamic Sitting: Normal Static Standing: Fair Dynamic Standing: Fair Assessment: Carlos demonstrates functional mobility decline requiring the use of front-wheeled walker and the assistance of 1 caregiver for all mobility ADL performance.? Has been on chronic oxygen supplementation however for this admission patient desaturates down to as low as 85% even with 3 L of oxygen per minute during ambulation activity but is able to recover with seated wrist after 2 to 3 minutes. Patient presents with clinical signs and symptoms consistent with current/admitting diagnoses that have resulted to mobility limitations, gait instability, generalized weakness, and overall ADL decline as demonstrated by the following impairment level findings: 1.? Decreased strength to B UE LE major muscle groups 2.? Impaired standing balance 3.? Impaired activity tolerance 4.? Shortness of breath on exertion Impairments are contributing to the following functional limitations: 1.? Decline in bed mobility skills 2.? Decline in transfer skills 3.? Difficulty with ambulation without assistive device and physical assistance 4.? Increased completion time for mobility ADL performance 5.? Increased risk for falls 6.? Difficulty with managing steps alone safely Goals: Goals X1 week 1. Supine-Sit independent MET 2. Sit-Supine independent MET 3. Sit-Stand independent NOT MET 4. Stand-Sit independent with no AD NOT MET 5. Bed-Chair independent with no AD NOT MET 6. Chair-Bed independent with no AD NOT MET 7. Independent gait on level surface with use of no AD for at least 100feet without report of pain nor dyspnea NOT MET 8. Independent stair negotiation while holding onto B rails for at least 5 steps without report of pain nor dyspnea NOT MET 9. Good static and dynamic standing balance/tolerance NOT MET DISCHARGE RECOMMENDATIONS: [] ? Home with no services [] [] ? Home with services [specify] [] ? Home with outpatient PT [] [X] ? SNF for continued rehabilitation.? Return to SNF when medically cleared by hospitalist.? Will assess appropriateness of either front wheeled walker or single-point cane upon discharge. [] ? Detention Care [] [] ? SNF versus LTC based on ability to participate and progress [] TREATMENT CODE/TIME: MO Thank you for the opportunity to participate in the care of this patient. Gali Rivera PT, DPT, CLT [facility] [place], [place]
[2021-09-07 22:23] LABS: Streptococcus Pneumoniae Ag, U Negative (Negative)
== END 2021-09-07 13:41 | disposition skilled nursing facility (03) | DRG 189 ==
LOC: ER 23:52 → MS 09-05 01:31
PROVIDERS: Family Medicine; Nurse Practitioner Family; Physician Assistant; Admitting Provider Family Medicine; Emergency Provider Emergency Medicine; PCP Family Medicine; Visit Provider Family Medicine
DX: J96.01 Acute respiratory failure with hypoxia (principal); I21.4 Non-ST elevation (NSTEMI) myocardial infarction; J44.1 Chronic obstructive pulmonary disease with (acute) exacerbation; I82.621 Acute embolism and thrombosis of deep veins of right upper extremity; J96.02 Acute respiratory failure with hypercapnia; C61 Malignant neoplasm of prostate; Z87.891 Personal history of nicotine dependence
CPT/HCPCS: 36415; 71275; 80048; 80053; 80061; 82805; 84145; 87040; 87449; 87637; 93005; 93306; 94640; 96361; 96365; 96366; 96375; 97162; 97530; 99291; J1650; 36600; 71045; 83605; 83735; 83880; 84484; 85025; 85379; 87899; 93010; 93971; 94660; 94664; 94760; 99223; 99233; 99239; J1100; J1941; J2060; J2543; J7512; J7613; J7620; J7644; J8540

== ENCOUNTER 2021-09-08 22:35 | Inpatient (IN) | payer MEDICARE, BC, SELFPAY ==
[2021-09-08 22:35] VITALS: BP 130/56; PULSE 102; RESP 22; TEMP 36.9; O2SAT 97
--- NOTE | 2021-09-08 23:00 | DI.CT_ITS ---
Exam(s) CT CHEST PE CTA EXAM: CT CHEST PE CTA CLINICAL HISTORY: recent dvt, now hypoxic. TECHNIQUE: Imaging Protocol: Axial CT angiography was performed with multi-slice acquisition and mu lti-planar and/or 3D reconstructions. CONTRAST MATERIAL: Intravenous: Omnipaque 350 Contrast volume:100 mL COMPARISON: CT CT CHEST PE CTA from 09/06/2021 FINDINGS: The examination is limited due to patient motion artifact. Tracheobronchial tree: Patent where visualized. Pulmonary parenchyma: Bilateral basilar infiltrates are present. They have slightly progressed in the left lung base. Marked centrilobular emphysematous changes are present. Pulmonary Arteries: No evidence of filling defect to suggest pulmonary emboli. Mediastinum and Francoise: No dominant adenopathy or fluid collection. The esophagus is unremarkable. Sm all hiatal hernia. Visualized thyroid gland: Unremarkable. Pleura: No pneumothorax. There is a persistent moderately large left pleural effusion and small right pleural effusion. Heart: The heart is not dilated. Coronary artery calcifications are present. No pericardial effusion. Veins: There is again seen a filling defect in the distal right subclavian vein. Aorta: Thoracic aorta non-dilated. No evidence of dissection. Atherosclerosis. Upper abdomen: Nonspecific hypodensities are again seen in the left lobe of the liver. Soft tissues: Unremarkable. Bones: Within normal limits for the patient's age.Old bilateral rib fractures. Old midthoracic spine vertebral body fractures which appears stable. IMPRESSION: 1. No evidence of pulmonary embolism, thoracic aortic dissection or aneurysm. 2. Stable bilateral pleural effusions and subjacent infiltrates. 3. Persistent filling defects seen in the right subclavian vein consist with the patient's known thro mbus. RADIATION DOSE DELIVERED: 341.99mGy.cm Total DLP DATA REPOSITORY: All CT scans at this facility are submitted to the National Radiology Data Registry (NRDR) Dose Index Registry (DIR) with the [employer] (ACR). RADIATION OPTIMIZATION: All CT scans at this facility use at least one of these dose optimization te chniques: automated exposure control; mA and/or kV adjustment per patient size (includes targeted exa ms where dose is matched to clinical indication); or iterative reconstruction.
--- NOTE | 2021-09-08 23:00 | RT.EKG_ITS ---
APPROVED REPORT Exam: Resting ECG Reason for Exam: hortness of breath Patient Location: E HR:102 bpm ECG Measurements Heart Rate 102 AXIS IA 171 P 54 QRSd 82 QRS 13 QT 347 T 58 QTc 453 Conclusion Sinus tachycardia...rate> 99 Ventricular premature complex...V complex w/ short R-R interval Low voltage, extremity leads...all extremity leads <0.5mV Physician: Sinus tachycardia, rate 102. Intervals normal. No significant ST elevations or depressio ns. No evidence of STEMI
--- NOTE | 2021-09-08 23:50 | W.ED.GENAD ---
Discharge Plan Disposition Patient Disposition: [facility] INPATIENT Discharge Details Chief Complaint: RespSymp Clinical Impression: Acute respiratory distress, Hypoxic episode Primary Care Provider: Luis Antonio Medina ED Provider: Daniel Berger Home Meds and New Rx's Prescriptions: No Action bisacodyl [Dulcolax (bisacodyl)] 10 mg Suppository 10 mg IA DAILY PRN azithromycin 250 mg Tablet 250 mg PO QAM calcipotriene 0.005 % Cream 1 applic TOPICAL DAILY calcipotriene 0.005 % Solution 1 applic TOPICAL DAILY ketoconazole 2 % Shampoo 1 applic TOPICAL DIRECTED losartan 100 mg Tablet 100 mg PO DAILY metoprolol succinate 25 mg Tablet Extended Release 24 Hr 25 mg PO DAILY Spiriva Respimat 2.5 mcg/actuation Mist 2 puff INHALATION DAILY budesonide-formoterol 160-4.5 mcg/actuation Hfa Aerosol Inhaler 2 puff INHALATION BID clobetasol 0.05 % Ointment 1 applic TOPICAL BID docusate sodium 100 mg Capsule 100 mg PO BID fluticasone propionate 50 mcg/actuation [place],Suspension 2 spray INTRANASAL BID tacrolimus 0.1 % Ointment 1 applic TOPICAL BID triamcinolone acetonide 0.1 % Cream 1 applic TOPICAL BID ipratropium bromide 0.02 % Solution 0.5 mg inhalation QID pimecrolimus 1 % Cream 1 applic TOPICAL BID PRN prednisone 20 mg Tablet 40 mg PO DAILY Qty: 0 0RF Eliquis 5 mg Tablet 10 mg PO BID Qty: 0 0RF Eliquis 5 mg Tablet 5 mg PO BID Qty: 0 0RF Medical Decision Making This is a pleasant 76-year-old male who was recently just discharged yesterday, who is currently residing at rehab facility, with a past medical history of chronic respiratory failure requiring previous intubations, recent COPD exacerbation, recent pneumonia, chronically on 4 L of oxygen, with a recent diagnosis of a right upper extremity DVT, for which she was subsequently started on Eliquis. Who presents today for shortness of breath. At the rehab facility the patient was noted to have increased work of breathing and increased shortness of breath. He was increased to 6 L of oxygen after going down to the mid to low 80s. He was brought to the ER for further evaluation. Patient states that earlier today he did have some chest pain and pain with breathing, but he states that this is improved now that he is on additional oxygen. He denies any current pain in his chest at this time. He is uncertain if he has been taking prescribed medications. He denies fever, chills, vomiting or diarrhea. No other complaints at this time. No other modifying factors. Slightly increased work of breathing, patient is saturating well on 10 L currently. Exam demonstrate mild crackles in the lungs, diminished breath sounds throughout. No significant pitting edema in lower extremities or the upper extremities at this time. Bedside ultrasound demonstrates very roddy I am concerned with the patient's increased shortness of breath and work of breathing especially in light of recent appearing ejection fraction, right ventricle does not appear overly dilated, but certainly does not have complete normal contractility. Concern for elevated pulmonary pressures versus potential right heart strain. Echocardiogram from 2 days ago demonstrates an ejection fraction of 55%, with an RVSP of 54. I am concerned with the patient's increased work of breathing, hypoxemia, especially in light of his recent DVT. There may certainly be a chronic COPD component, but PE is certainly on the differential. I do feel like he would be an appropriate candidate for CTA for further assessment. We will continue supplemental oxygen, give breathing treatments, monitor closely and reassess. Cardiac etiology is certainly also on the differential. No clear signs of large wall motion abnormality on bedside echo though. 10:30 AM Laboratory work-up is returned, no significant white count or bandemia. Hemoglobin minimally lower than before at 8.3. VBG demonstrates low and normal pH, with markedly elevated PCO2 greater than 80. Certainly seems to be an acute on chronic component. Initial troponin was normal. proBNP minimally elevated compared to prior levels. Urinalysis negative for infection. COVID/flu/RSV negative. CTA was ordered and shows no evidence of pulmonary embolism, moderate left and small right pleural effusions are present similar to previous. Small filling defect is still noted in the subclavian vein likely from DVT. There is some pulmonary emphysema and subsegmental atelectasis noted. Patient actually initially did much better, he was titrated down and his oxygen and was able to get to less than 4 L on supplemental. And at that time his oxygenation was excellent in the high 90s. However shortly thereafter he quickly transitioned and developed hypoxemia in the 80s. Supplemental oxygen was then raised to greater than 4 L and he would only come up to the low 90s. BiPAP was started, duo nebs were given as well. Patient's oxygenation remained stable with that, but it certainly had a paradoxical change that was unexpected. With no evidence of large pulmonary emboli, no signs of a pneumonia, I am not certain what caused the patient's sudden drastic change in oxygen needs. I do feel that with the patient's continued increased oxygen demand admission for further evaluation is indicated. I did discuss the case with Dr. Alvarez, he agrees with the assessment and plan. I have extensively reviewed the treatment plan with the patient. I have addressed all patient concerns at this time. I have also discussed the plan with the admitting physician and they agree with the current assessment and plan and have agreed to assume responsibility for the patient. All parties demonstrate verbal understanding and agreement with our assessment and plan at this time. The documentation in this chart was dictated using [employer] dictation software. Please excuse any dictation errors. EKG 00: 50 Sinus tachycardia, rate 102. Intervals normal. No significant ST elevations or depressions. No evidence of STEMI FINDINGS: Pulmonary arteries: No pulmonary emboli. Great vessels off aortic arch: A small filling defect is likely still present in the right subclavian vein. Aorta: No aortic aneurysm. No aortic dissection. Lungs: Pulmonary emphysema again seen. Motion artifact. Compressive atelectasis in the left greater than right lung base without new significant appearing pneumonia or other airspace disease. Pleural spaces: Moderate left and small right pleural effusion, similar. Heart: Stable moderate cardiomegaly. Lymph nodes: No enlarged lymph nodes. Kidneys and ureters: Dilation of the left renal pelvis again partially assessed, limited visualized portions suggests UPJ obstruction. Bones/joints: Nonacute appearing healing rib fractures. Nonacute multilevel thoracic compression deformities with retropulsion similar to prior. No acute fracture or subluxation. Soft tissues: Mild generalized subcutaneous edema again seen. IMPRESSION: 1. No pulmonary emboli are seen. 2. Moderate left and small right pleural effusions, similar. 3. A small filling defect is likely still present in the right subclavian vein. 4. Pulmonary emphysema, subsegmental atelectasis similar. 5. Additional findings as described. Thank you for allowing us to participate in the care of your patient. Dictated and Authenticated by: Carmen Figueroa MD 09/09/2021 12:33 AM Eastern Time ([place] & [place]) HPI General Date/Time Provider Initiated Documentation: 09/08/21 22:52. HPI Narrative: This is a pleasant 76-year-old male who was recently just discharged yesterday, who is currently residing at rehab facility, with a past medical history of chronic respiratory failure requiring previous intubations, recent COPD exacerbation, recent pneumonia, chronically on 4 L of oxygen, with a recent diagnosis of a right upper extremity DVT, for which she was subsequently started on Eliquis. Who presents today for shortness of breath. At the rehab facility the patient was noted to have increased work of breathing and increased shortness of breath. He was increased to 6 L of oxygen after going down to the mid to low 80s. He was brought to the ER for further evaluation. Patient states that earlier today he did have some chest pain and pain with breathing, but he states that this is improved now that he is on additional oxygen. He denies any current pain in his chest at this time. He is uncertain if he has been taking prescribed medications. He denies fever, chills, vomiting or diarrhea. No other complaints at this time. No other modifying factors. Related Data Home Medications Medication Instructions Recorded Confirmed azithromycin 250 mg tablet 250 mg PO QAM 09/04/21 09/04/21 budesonide-formoterol HFA 160 2 puff inhalation BID 09/04/21 09/08/21 mcg-4.5 mcg/actuation aerosol inhaler calcipotriene 0.005 % scalp 1 applic topical DAILY 09/04/21 09/08/21 solution calcipotriene 0.005 % topical cream 1 applic topical DAILY 09/04/21 09/08/21 clobetasol 0.05 % topical ointment 1 applic topical BID 09/04/21 09/08/21 docusate sodium 100 mg capsule 100 mg PO BID 09/04/21 09/08/21 fluticasone propionate 50 2 spray intranasal BID 09/04/21 09/08/21 mcg/actuation nasal spray,suspension ipratropium bromide 0.02 % 0.5 mg inhalation QID 09/04/21 09/08/21 solution for inhalation ketoconazole 2 % shampoo 1 applic topical DIRECTED 09/04/21 09/08/21 losartan 100 mg tablet 100 mg PO DAILY 09/04/21 09/08/21 metoprolol succinate 25 mg 25 mg PO DAILY 09/04/21 09/08/21 tablet,extended release 24 hr pimecrolimus 1 % topical cream 1 applic topical BID PRN 09/04/21 09/08/21 tacrolimus 0.1 % topical ointment 1 applic topical BID 09/04/21 09/08/21 tiotropium bromide 2.5 2 puff inhalation DAILY 09/04/21 09/08/21 mcg/actuation mist for inhalation (Spiriva Respimat) triamcinolone acetonide 0.1 % 1 applic topical BID 09/04/21 09/08/21 topical cream apixaban 5 mg tablet (Eliquis) 5 mg PO BID #0 tabs 09/07/21 09/08/21 apixaban 5 mg tablet (Eliquis) 10 mg PO BID #0 tabs 09/07/21 09/08/21 prednisone 20 mg tablet 40 mg PO DAILY #0 tabs 09/07/21 09/08/21 bisacodyl 10 mg rectal suppository 10 mg IA DAILY PRN 09/08/21 09/08/21 (Dulcolax (bisacodyl)) Previous Rx's Medication Instructions Recorded apixaban 5 mg tablet (Eliquis) 5 mg PO BID #0 tabs 09/07/21 apixaban 5 mg tablet (Eliquis) 10 mg PO BID #0 tabs 09/07/21 prednisone 20 mg tablet 40 mg PO DAILY #0 tabs 09/07/21 Allergies Allergy/AdvReac Type Severity Reaction Status Date / Time Calcium Channel Blocking AdvReac Unknown Unverified 09/08/21 22:44 Agent Dilt oxycodone AdvReac Unknown Unverified 09/08/21 22:44 prednisone AdvReac Unknown Unverified 09/08/21 22:44 [id number]-[id number]-[id number] Reductase AdvReac Unknown Unverified 09/08/21 22:44 Inhibitor sulfamethoxazole AdvReac Unknown Unverified 09/08/21 22:44 [From Bactrim] trimethoprim [From Bactrim] AdvReac Unknown Unverified 09/08/21 22:44 General Stated Complaint: RespSymp DOMINGUEZ: 2 Review of Systems All systems reviewed & are unremarkable except as noted in HPI and below PFSH All Active Problems (Updated 09/09/21 @ 02:47 by Daniel Berger DO) Hypoxic episode (Acute) Deep vein thrombosis, upper right extremity (Acute) NSTEMI (non-ST elevated myocardial infarction) (Acute) Acute respiratory failure with hypoxia and hypercarbia (Acute) Acute respiratory distress (Acute) Acute exacerbation of chronic obstructive pulmonary disease (Acute) Medical History COPD (chronic obstructive pulmonary disease) HTN (hypertension) Prostate cancer Surgical History No significant past surgical history Social History Smoking/Tobacco Use Status: Former Tobacco Use Smoking risk assessment performed?: Yes Alcohol Intake: current Substance use type: does not use Do you feel safe at home: Yes Do you feel safe in your relationship?: Yes Exam Narrative Exam Narrative: 1.Const: Well-nourished, Well-developed, appearing stated age 2.Eyes: PERRL, no conjunctival injection, and symmetrical lids. 3.ENT: Atraumatic external nose and ears. Moist MM. Neck: Symmetric, trachea midline, No thyromegaly. 4.CVS: +S1/S2, No murmurs or gallops. Peripheral pulses 2+ and equal in all extremities. Brisk capillary refill in all extremities. 5.RESP: Slightly labored respiratory effort, minimal accessory breathing. Diminished breath sounds throughout, mild crackles noted on the left and right. 6.GI: Soft, Nontender/Nondistended, No hepatosplenomegaly. No guarding or rebound. 7.MSK: Normocephalic/Atraumatic, Extremities w/o deformity or ttp No cyanosis or clubbing, Normal movement of all extremities, no pitting edema. 8.Skin: Warm, Dry. No rashes or lesions. Multiple bruises noted on the arm. No significant asymmetric swelling of the upper extremities. 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 Sensation grossly intact, no focal neurologic deficits. 10.Psych: (AAO) x3. Appropriate mood and affect Course Vital Signs Vital signs: Vital Signs Temperature 36.9 C 09/08/21 22:35 Pulse 102 H 09/08/21 22:35 Respiratory Rate 22 09/08/21 22:35 Blood Pressure 130/56 L 09/08/21 22:35 Pulse Oximetry 97 09/08/21 22:35 Temperature 36.9 C 09/08/21 22:35 Temperature Source Temporal Artery Scan 09/08/21 22:35 Pulse 102 H 09/08/21 22:35 Respiratory Rate 22 09/08/21 22:35 Respiratory Effort Labored 09/08/21 22:45 Respiratory Depth Shallow 09/08/21 22:45 Blood Pressure 130/56 L 09/08/21 22:35 Blood Pressure Position Supine 09/08/21 22:35 Pulse Oximetry 97 09/08/21 22:35 Oxygen Delivery Method Nasal Cannula 09/08/21 22:35 Oxygen Flow Rate 6 09/08/21 22:35 Pain Level 0 09/08/21 22:35
[2021-09-08 23:51] LABS: Abs Immature Grans 0.14 10^3/uL (0.0-0.06); Absolute Basophil Count 0.02 10^3/uL (0.0-0.2); Absolute Eosinophil Count 0.05 10^3/uL (0.0-0.7); Absolute Lymphocyte Count 0.84 10^3/uL (1.2-3.4); Absolute Monocyte Count 1.22 10^3/uL (0.1-0.8); Absolute Neutrophil Count 7.62 10^3/uL (1.2-6.7); Basophils % 0.2; Eosinophils % 0.5; HCO3 (Venous) 44 mmol/L (23-28); HCT 28.3 % (40.0-50.0); HGB 8.3 g/dL (13.5-17.5); Immature Grans % 1.4; Lymphocytes % 8.5; MCH 26.4 pg (27.0-33.0); MCHC 29.3 % (32.0-36.0); MCV 90 fL (80-95); MPV 9.6 fL (8.0-11.0); Monocytes % 12.3; Neutrophils % 77.1; O2 Sat (Venous) 76 %; Platelet Count 261 10^3/uL (130-400); RBC 3.14 10^6/uL (4.36-5.78); RDW 15.2 % (11.8-14.1); RDW-SD 50.2 fL; TCO2 (Venous) 43 mmol/L (24-29); WBC 9.89 10^3/uL (4.4-10.8); pH (Venous) 7.32 (7.31-7.41); pO2 (Venous) 46 mmHg
[2021-09-08 23:55] LABS: BE (Venous) > 15 mmol/L (-2-3); pCO2 (Venous) 86 mmHg (41-51)
[2021-09-09] VITALS (212 sets, daily range): BP systolic 68–165; BP diastolic 38–113; PULSE 0–123; RESP 2–41; TEMP 36.3–37; O2SAT 83–100
[2021-09-09 00:11] LABS: INR 1.2 (0.9-1.1); PTT Activated 25.4 sec (21.0-27.5); Prothrombin Time 11.6 sec (9.3-11.0)
[2021-09-09 00:18] LABS: ALT 16 U/L (16-63); AST 13 U/L (15-37); Albumin 2.8 g/dL (3.4-5.0); Alkaline Phosphatase 76 U/L (46-116); Anion Gap -2.8 mmol/L (3-11); BUN 32 mg/dL (7-18); Bilirubin, Total 0.2 mg/dL (0.2-1.0); CO2 42.8 mmol/L (21.0-32.0); CREATININE 0.7 mg/dL (0.70-1.30); Chloride 99 mmol/L (98-107); Glucose 106 mg/dL (74-106); NT-proBNP 1316 pg/mL (<300); Potassium 4.2 mmol/L (3.5-5.1); Sodium 139 mmol/L (136-145); Total Protein 5.6 g/dL (6.4-8.2); Troponin I 55 ng/L (<or=60)
--- NOTE | 2021-09-09 00:33 | DI.VRAD_ITS ---
PROCEDURE INFORMATION: Exam: CTA Chest With Contrast Exam date and time: 09/09/2021 00:02 Age: 76 years old Clinical indication: Other: Hypoxia, recent dvt TECHNIQUE: Imaging protocol: Computed tomographic angiography of the chest with contrast. 3D rendering (Not supervised by radiologist): MIP and/or 3D reconstructed images were created by the technologist. Radiation optimization: All CT scans at this facility use at least one of these dose optimization techniques: automated exposure control; mA and/or kV adjustment per patient size (includes targeted exams where dose is matched to clinical indication); or iterative reconstruction. Contrast material: VISIPAQUE 320; Contrast volume: 100 ml; Contrast route: INTRAVENOUS (IV); COMPARISON: CT CHEST PE CTA 09/06/2021 16:15 FINDINGS: Pulmonary arteries: No pulmonary emboli. Great vessels off aortic arch: A small filling defect is likely still present in the right subclavian vein. Aorta: No aortic aneurysm. No aortic dissection. Lungs: Pulmonary emphysema again seen. Motion artifact. Compressive atelectasis in the left greater than right lung base without new significant appearing pneumonia or other airspace disease. Pleural spaces: Moderate left and small right pleural effusion, similar. Heart: Stable moderate cardiomegaly. Lymph nodes: No enlarged lymph nodes. Kidneys and ureters: Dilation of the left renal pelvis again partially assessed, limited visualized portions suggests UPJ obstruction. Bones/joints: Nonacute appearing healing rib fractures. Nonacute multilevel thoracic compression deformities with retropulsion similar to prior. No acute fracture or subluxation. Soft tissues: Mild generalized subcutaneous edema again seen. IMPRESSION: 1. No pulmonary emboli are seen. 2. Moderate left and small right pleural effusions, similar. 3. A small filling defect is likely still present in the right subclavian vein. 4. Pulmonary emphysema, subsegmental atelectasis similar. 5. Additional findings as described. Dictated and Authenticated by: Carmen Figueroa MD. Ordering:COURTNEY Sanchez MD
[2021-09-09 00:35] LABS: COVID-19 PCR Negative (Negative); Influenza A PCR Negative (Negative); Influenza B PCR Negative (Negative); RSV PCR Negative (Negative)
[2021-09-09 00:45] LABS: Source Nasopharynx
[2021-09-09 01:00] LABS: Bilirubin Negative (Negative); Blood Negative (Negative); Clarity Clear (Clear); Glucose Negative (Negative); Ketones Negative (Negative); Leukocyte Esterase Negative (Negative); Nitrite Negative (Negative); Urobilinogen 0.2 EU/dL (Up TO 0.2); pH 6.5 (5-8)
[2021-09-09] MEDS: Albuterol/Ipratropium 3 ML UPD VIAL 9 ML UPD (01:06)
[2021-09-09 02:37] LABS: Troponin I 62 ng/L (<or=60)
[2021-09-09 02:58] LABS: HCO3 (Venous) 43 mmol/L (23-28); O2 Sat (Venous) 97 %; TCO2 (Venous) 41 mmol/L (24-29); pH (Venous) 7.29 (7.31-7.41); pO2 (Venous) 87 mmHg
[2021-09-09 03:00] LABS: BE (Venous) > 15 mmol/L (-2-3); pCO2 (Venous) 89 mmHg (41-51)
--- NOTE | 2021-09-09 05:32 | HPE_ITS ---
Date of service: 09/09/21 Time of Service: 03:00 Assessment and Plan Assessment and plan (1) Acute respiratory failure with hypoxia and hypercarbia: Status: Acute Assessment and plan: Mr. Subramanian has known COPD and pulmonary hypertension, but his pattern of respiratory failure and improvement is somewhat puzzling. He does have mixed picture of hypoxia and hypercarbia. Currently his hypoxia has been corrected but still hypercarbic, respiratory adjusting the vent. He isn't following a clear pattern of CO2 retaining leading to MS changes and respiratory failure, but this pattern may be a part of what we are seeing. He could have some obstructive or central apnea as well playing into this. I have consulted Dr. Egan to help us figure this out. Continue on BiPAP and close monitoring in ICU I don't know that increasing steroids again will change his course, will continue on the predinosone from recent discharge 40mg/day along with inhalers and prn nebs. (2) NSTEMI (non-ST elevated myocardial infarction): Status: Acute Assessment and plan: Mr. subramanian had an NSTEMI last admission. His troponins are slightly up again, likely related to stress of hypoxia from lung disease, but lower than last admission. His BNaP is also lower. Will continue currently medications inclu ding metoprolol. He has not been on ASA or statin, I'm not sure why but this can be reconsidered. (3) Deep vein thrombosis, upper right extremity: Status: Acute Assessment and plan: He is still on loading dose apixaban. No PE on chest CT. COntinue. (4) DVT prophylaxis: Status: Acute Assessment and plan: full dose apixaban as above. (5) Discharge planning issues: Status: Acute Assessment and plan: He has 3 admissions in past month, and will need to go back to rehab when stable again. History of Present Illness History of Present Illness Chief Complaint: sent from health and rehab with hypoxia Narrative: 76 yo M with history of chronic respiratory failure on 4L of home O2 baseline, COPD, and multiple recent admissions with intubations a/w COPD exacerbation as well as recently diagnosed UE DVT and NSTEMI, who was discharged on 09/07 from [facility] and found with increasing shortness of breath at the rehab on the day of admission. History is second hand per records and ED staff as patient was minimally responsive on BiPAP when I evaluated him at 3am. At rehab he was noted to have an O2 sat in 80s despite an increase to 6L via nasal canula. He had some chest pain and tightness earlier in the day of admission but this improved with additional oxygen. He was alert and conversant and giving history. He denies fevers or chills or increased cough or sputum. He did improved in the ED and had O2 in the high 90s on 4 L, but he then quickly became hypoxic again in low 80s without a clear trigger, at which point he was started on BiPAP. Review of Systems Narrative: limited but minimal response/somnolence during my evaluation, see HPI. PFSH All Active Problems (Updated 09/09/21 @ 05:52 by Sylvester Oneill) DVT prophylaxis (Acute) Discharge planning issues (Acute) Hypoxic episode (Acute) Deep vein thrombosis, upper right extremity (Acute) NSTEMI (non-ST elevated myocardial infarction) (Acute) Acute respiratory failure with hypoxia and hypercarbia (Acute) Acute respiratory distress (Acute) Acute exacerbation of chronic obstructive pulmonary disease (Acute) Medical History COPD (chronic obstructive pulmonary disease) HTN (hypertension) Prostate cancer Surgical History No significant past surgical history Social History Smoking/Tobacco Use Status: Former Tobacco Use Smoking risk assessment performed?: Yes Alcohol Intake: current Substance use type: does not use Do you feel safe at home: Yes Do you feel safe in your relationship?: Yes Meds Allergies and Home Medications Allergies Allergy/AdvReac Type Severity Reaction Status Date / Time Calcium Channel Blocking AdvReac Unknown Unverified 09/08/21 22:44 Agent Dilt oxycodone AdvReac Unknown Unverified 09/08/21 22:44 prednisone AdvReac Unknown Unverified 09/08/21 22:44 [id number] Reductase AdvReac Unknown Unverified 09/08/21 22:44 Inhibitor sulfamethoxazole AdvReac Unknown Unverified 09/08/21 22:44 [From Bactrim] trimethoprim [From Bactrim] AdvReac Unknown Unverified 09/08/21 22:44 Home Medications Medication Instructions Recorded Confirmed Type azithromycin 250 mg tablet 250 mg PO QAM 09/04/21 09/04/21 History budesonide-formoterol HFA 160 2 puff inhalation BID 09/04/21 09/08/21 History mcg-4.5 mcg/actuation aerosol inhaler calcipotriene 0.005 % scalp 1 applic topical DAILY 09/04/21 09/08/21 History solution calcipotriene 0.005 % topical cream 1 applic topical DAILY 09/04/21 09/08/21 History clobetasol 0.05 % topical ointment 1 applic topical BID 09/04/21 09/08/21 History docusate sodium 100 mg capsule 100 mg PO BID 09/04/21 09/08/21 History fluticasone propionate 50 2 spray intranasal BID 09/04/21 09/08/21 History mcg/actuation nasal spray,suspension ipratropium bromide 0.02 % 0.5 mg inhalation QID 09/04/21 09/08/21 History solution for inhalation ketoconazole 2 % shampoo 1 applic topical DIRECTED 09/04/21 09/08/21 History losartan 100 mg tablet 100 mg PO DAILY 09/04/21 09/08/21 History metoprolol succinate 25 mg 25 mg PO DAILY 09/04/21 09/08/21 History tablet,extended release 24 hr pimecrolimus 1 % topical cream 1 applic topical BID PRN 09/04/21 09/08/21 History tacrolimus 0.1 % topical ointment 1 applic topical BID 09/04/21 09/08/21 History tiotropium bromide 2.5 2 puff inhalation DAILY 09/04/21 09/08/21 History mcg/actuation mist for inhalation (Spiriva Respimat) triamcinolone acetonide 0.1 % 1 applic topical BID 09/04/21 09/08/21 History topical cream apixaban 5 mg tablet (Eliquis) 5 mg PO BID #0 tabs 09/07/21 09/08/21 Rx apixaban 5 mg tablet (Eliquis) 10 mg PO BID #0 tabs 09/07/21 09/08/21 Rx prednisone 20 mg tablet 40 mg PO DAILY #0 tabs 09/07/21 09/08/21 Rx bisacodyl 10 mg rectal suppository 10 mg SD DAILY PRN 09/08/21 09/08/21 History (Dulcolax (bisacodyl)) Exam Narrative Exam Narrative: GEN: somnolent in BiPAP, ventilating well. Makes small non-specific responses during my exam. HEENT: Head atraumatic. Conjunctiva clear, no icterus. PEERL, EOMI. no rhinorrhea. MMM. Neck is supple with no masses or lymphadenopathy, trachea midline, I could not appreciate elevated JVP LUNGS: Lung sounds diffusely deminished, but no rales or wheeze. breathes of varying depths. CV: RRR with no murmurs, gallops, or rubs. ABD: +BS, soft, NT/ND EXT: no cyanosis, clubbing. 1+ pitting LE edema MSK: No joint redness or swelling NEURO: He is moving four extremities. no abnormal movements noted. PEERL. Exam limited due to somnolence. SKIN: No rashs or open wounds. Results Imaging CT scan - chest: report reviewed (MPRESSION: 1. No pulmonary emboli are seen. 2. Moderate left and small right pleural effusions, similar. 3. A small filling defect is likely still present in the right subclavian vein. 4. Pulmonary emphysema, subsegmental atelectasis similar. 5. Additional findings as described.) EKG: report reviewed and image reviewed (Sinus tachy 102, no ST-T changes c/w ischemia) Labs Result diagrams: 09/08/21 23:45 09/08/21 23:45 Labs: Laboratory Results - last 24 hr 09/08/21 09/08/21 09/08/21 23:45 23:45 23:45 WBC 9.89 RBC 3.14 L Hgb 8.3 L Hct 28.3 L MCV 90 MCH 26.4 L MCHC 29.3 L RDW 15.2 H Plt Count 261 MPV 9.6 Immature Gran % 1.4 Neutrophils % 77.1 Lymphocytes % 8.5 Monocytes % 12.3 Eosinophils % 0.5 Basophils % 0.2 Nucleated RBC % 0.0 Absolute Neutrophils 7.62 H Absolute Lymphocytes 0.84 L Absolute Monocytes 1.22 H Absolute Eosinophils 0.05 Absolute Basophils 0.02 PT INR APTT VBG pH VBG pCO2 VBG pO2 VBG HCO3 VBG Total CO2 VBG O2 Saturation VBG Base Excess Sodium 139 Potassium 4.2 Chloride 99 Carbon Dioxide 42.8 H Anion Gap -2.8 L BUN 32 H Creatinine 0.7 Estimated GFR/1.73 m2 >= 60.00 Glucose 106 Calcium 8.0 L Total Bilirubin 0.2 AST 13 L ALT 16 Alkaline Phosphatase 76 Troponin I 55 NT-Pro-B Natriuret Pep 1316 H Total Protein 5.6 L Albumin 2.8 L Urine Color Urine Clarity Urine pH Ur Specific [place] Urine Protein Urine Ketones Urine Blood Urine Nitrite Urine Bilirubin Urine Urobilinogen Ur Leukocyte Esterase Urine Glucose COVID-19 Source Nasopharynx SARS-CoV-2 (PCR) Negative Influenza Type A (PCR) Negative Influenza Type B (PCR) Negative RSV (PCR) Negative 09/08/21 09/08/21 09/09/21 23:45 23:45 00:45 WBC RBC Hgb Hct MCV MCH MCHC RDW Plt Count MPV Immature Gran % Neutrophils % Lymphocytes % Monocytes % Eosinophils % Basophils % Nucleated RBC % Absolute Neutrophils Absolute Lymphocytes Absolute Monocytes Absolute Eosinophils Absolute Basophils PT 11.6 H INR 1.2 H APTT 25.4 VBG pH 7.32 VBG pCO2 86 H* VBG pO2 46 VBG HCO3 44 H VBG Total CO2 43 H VBG O2 Saturation 76 VBG Base Excess > 15 H Sodium Potassium Chloride Carbon Dioxide Anion Gap BUN Creatinine Estimated GFR/1.73 m2 Glucose Calcium Total Bilirubin AST ALT Alkaline Phosphatase Troponin I NT-Pro-B Natriuret Pep Total Protein Albumin Urine Color Yellow Urine Clarity Clear Urine pH 6.5 Ur Specific [place] 1.020 Urine Protein Negative Urine Ketones Negative Urine Blood Negative Urine Nitrite Negative Urine Bilirubin Negative Urine Urobilinogen 0.2 Ur Leukocyte Esterase Negative Urine Glucose Negative COVID-19 Source SARS-CoV-2 (PCR) Influenza Type A (PCR) Influenza Type B (PCR) RSV (PCR) 09/09/21 09/09/21 02:15 02:50 WBC RBC Hgb Hct MCV MCH MCHC RDW Plt Count MPV Immature Gran % Neutrophils % Lymphocytes % Monocytes % Eosinophils % Basophils % Nucleated RBC % Absolute Neutrophils Absolute Lymphocytes Absolute Monocytes Absolute Eosinophils Absolute Basophils PT INR APTT VBG pH 7.29 L VBG pCO2 89 H* VBG pO2 87 VBG HCO3 43 H VBG Total CO2 41 H VBG O2 Saturation 97 VBG Base Excess > 15 H Sodium Potassium Chloride Carbon Dioxide Anion Gap BUN Creatinine Estimated GFR/1.73 m2 Glucose Calcium Total Bilirubin AST ALT Alkaline Phosphatase Troponin I 62 H* NT-Pro-B Natriuret Pep Total Protein Albumin Urine Color Urine Clarity Urine pH Ur Specific [place] Urine Protein Urine Ketones Urine Blood Urine Nitrite Urine Bilirubin Urine Urobilinogen Ur Leukocyte Esterase Urine Glucose COVID-19 Source SARS-CoV-2 (PCR) Influenza Type A (PCR) Influenza Type B (PCR) RSV (PCR) Last Vital Signs Temp 36.9 C 09/08/21 22:35 Pulse 88 09/09/21 04:14 Resp 16 09/09/21 04:14 BP 115/52 L 09/09/21 04:14 Pulse Ox 95 09/09/21 04:10
[2021-09-09 06:31] LABS: HCO3 (Venous) 41 mmol/L (23-28); pH (Venous) 7.42 (7.31-7.41); pO2 (Venous) 117 mmHg
[2021-09-09 06:32] LABS: BE (Venous) > 15 mmol/L (-2-3); O2 Sat (Venous) > 99 %
[2021-09-09 06:36] LABS: pCO2 (Venous) 64 mmHg (41-51)
--- NOTE | 2021-09-09 09:14 | PGE_ITS ---
Date of Service Date of service: 09/09/21 Time of Service: 08:14 Assessment and Plan Assessment and plan (1) Acute on chronic respiratory failure with hypoxia and hypercapnia: Status: Acute Assessment and plan: continue treatment of his COPD w/ LAMA and ICS and prn beta agonist bronchodilators; support him w/ BIPAP however, I will work w/ P.T. to try to get him qualified for an auto adapting NIPPV device, i.e. Trilogy, as I think this is what he needs to prevent further intubations from respiratory failure/arrest. Critical care time spent interviewing and examining the patient, reviewing studies, discussing case with patient's nurse and admitting physician was 60 minutes (2) Deep vein thrombosis, upper right extremity: Status: Acute Assessment and plan: continue apixaban for at least 3 months. This was a recent diagnosis on last week's admission. he had a PICC line in his right arm at [facility] and his DVT was found earlier at the beginning of this week. he should be on apixaban 10 mg bid through 09/12 then drop to 5 mg bid. (3) COPD (chronic obstructive pulmonary disease): Assessment and plan: treat w/ LAMA (Spirva) and ICS and prn albuterol. continue BIPAP. try to get him approved for Trilogy (APAP). (4) Elevated troponin I level: Status: Acute Assessment and plan: Again, I suspect that this is a demand ischemia caused by his hypoxemia. I will trend his troponin to be sure that it does not reach a level where ACS is more of a concern. It should trend down now that his hypoxemia and hypercarbia are improving. I will not repeat his echo unless his troponins reach high levels or he has EKG changes or expresses significant chest pain. He should be on ASA for ACS prevention. He allegedly is allergic to statins. His EKG last night did not show any ischemic or injury pattern. (5) Anemia: Status: Chronic Assessment and plan: Review of his chart reveals no recent work-up of his anemia. We will check stools for occult blood check iron studies folic acid B12 LDH and reticulocyte count. As he needs to remain on apixaban for recent DVT, I will put him on protonix for GI protection. (6) Pleural effusion: Status: Acute Assessment and plan: stable bilateral effusions along w/ subjacent infiltrates on most recent CT scan of the chest. clinically he is not acting like a pneumonia i.e. no fevers nor sputum production. He was on azithromycin which was continued on admission. I will continue for 5 days then stop. If he developes fevers or rising WBC or elevated procalcitonin then consider HCAP and then I would broaden antibiotics coverage. Subjective Subjective Interval history since last seen: 76-year-old male with a history of COPD with a history of CO2 retention chronically on home oxygen of 4 L/min with a history of multiple recent adm issions including intubations due to COPD exacerbation. Most recently was hospitalized at [facility] from 09/04/2021 through 09/07/2021 after being sent here from [facility] with recurrent acute on chronic respiratory failure with hypoxia and hypercarbia. He was treated with steroids and aerosolized bronchodilators started on Zosyn and vancomycin for possible healthcare acquired pneumonia and treated with BiPAP. He was found to have elevated troponins felt to be a type II NSTEMI due to hypoxemia. Echocardiogram was performed during that admission and demonstrated normal left ventricular size and function with an ejection fraction of 55% with no wall motion abnormalities. Right ventricle is mildly dilated and mildly diffusely hypocontractile with mild to moderate tricuspid regurgitation and moderate pulmonary hypertension with RVSP of 54 mm he also has moderate mitral gravitation but no aortic valve stenosis or regurgitation. Last night he was readmitted from [facility] secondary to exacerbation of his chronic respiratory failure with with hypercarbia and hypoxemia. He was noted to have oxygen saturation in the 80s despite being placed on 6 L per nasal cannula. In the emergency department he required BiPAP. Admission VBG last night showed CO2 retention with a PCO2 of 86 and a PO2 of 46 on his VBG. pH was 7.32. Later during the night his PCO2 climbed to 89 before improving this morning with a PCO2 of 64. It is suspected that patient has some concomitant sleep apnea either obstructive or central sleep apnea. He has been intubated twice in the past 3 weeks and was recently discharged from [facility] to [facility] on BIPAP which he has failed and this led to his most recent hospitalization at [facility] last week. He has presented once again w/ combined hypoxemic and hypercarbic respitatory failure. This morning he was having prolonged apnea spells but now is wide awake. RT has been adjusting his BIPAP this morning to control his hypercarbia and hypoxemia. He is currently on 15/5 cm and FIO2 30%. He needs an auto adjusting BIPAP that will correct for his change in his airway dynamics that occurs during his sleeping and positional changes. He also should have a palliative care consult to discuss w/ him and his family goals of care as he is likely going to require repeated intubations. Exam Narrative Exam Narrative: Elderly white male who was having sonorous respirations I walked to the room. With tactile stimulation he awakened. He is now alert talking with the staff has been converted to a nasal cannula in order to build to take his medications and meals. Lungs with diffusely diminished breath sounds with marked decrease in the left lung base. Dullness to percussion of the left lung base consistent with pleural effusion. Heart regular rate and rhythm did not appreciate murmur Abdomen soft nondistended Extremities he has some edema both hands. Normal handgrip strength normal movement of his arms. No edema of his feet and legs. Feet are warm with intact pulses. Neuro no focal cranial nerve deficits no focal motor deficits. He is now awake alert conversing with nursing staff and RT as well as dietary. Objective Last Vital Signs Temp 36.3 C L 09/09/21 06:28 Pulse 91 H 09/09/21 08:43 Resp 19 09/09/21 08:43 BP 110/49 L 09/09/21 06:31 Pulse Ox 95 09/09/21 08:43 Laboratory Results - last 24 hr 09/08/21 09/08/21 09/08/21 23:45 23:45 23:45 WBC 9.89 RBC 3.14 L Hgb 8.3 L Hct 28.3 L MCV 90 MCH 26.4 L MCHC 29.3 L RDW 15.2 H Plt Count 261 MPV 9.6 Immature Gran % 1.4 Neutrophils % 77.1 Lymphocytes % 8.5 Monocytes % 12.3 Eosinophils % 0.5 Basophils % 0.2 Nucleated RBC % 0.0 Absolute Neutrophils 7.62 H Absolute Lymphocytes 0.84 L Absolute Monocytes 1.22 H Absolute Eosinophils 0.05 Absolute Basophils 0.02 PT INR APTT VBG pH VBG pCO2 VBG pO2 VBG HCO3 VBG Total CO2 VBG O2 Saturation VBG Base Excess Sodium 139 Potassium 4.2 Chloride 99 Carbon Dioxide 42.8 H Anion Gap -2.8 L BUN 32 H Creatinine 0.7 Estimated GFR/1.73 m2 >= 60.00 Glucose 106 Calcium 8.0 L Total Bilirubin 0.2 AST 13 L ALT 16 Alkaline Phosphatase 76 Troponin I 55 NT-Pro-B Natriuret Pep 1316 H Total Protein 5.6 L Albumin 2.8 L Urine Color Urine Clarity Urine pH Ur Specific [place] Urine Protein Urine Ketones Urine Blood Urine Nitrite Urine Bilirubin Urine Urobilinogen Ur Leukocyte Esterase Urine Glucose COVID-19 Source Nasopharynx SARS-CoV-2 (PCR) Negative Influenza Type A (PCR) Negative Influenza Type B (PCR) Negative RSV (PCR) Negative 09/08/21 09/08/21 09/09/21 23:45 23:45 00:45 WBC RBC Hgb Hct MCV MCH MCHC RDW Plt Count MPV Immature Gran % Neutrophils % Lymphocytes % Monocytes % Eosinophils % Basophils % Nucleated RBC % Absolute Neutrophils Absolute Lymphocytes Absolute Monocytes Absolute Eosinophils Absolute Basophils PT 11.6 H INR 1.2 H APTT 25.4 VBG pH 7.32 VBG pCO2 86 H* VBG pO2 46 VBG HCO3 44 H VBG Total CO2 43 H VBG O2 Saturation 76 VBG Base Excess > 15 H Sodium Potassium Chloride Carbon Dioxide Anion Gap BUN Creatinine Estimated GFR/1.73 m2 Glucose Calcium Total Bilirubin AST ALT Alkaline Phosphatase Troponin I NT-Pro-B Natriuret Pep Total Protein Albumin Urine Color Yellow Urine Clarity Clear Urine pH 6.5 Ur Specific [place] 1.020 Urine Protein Negative Urine Ketones Negative Urine Blood Negative Urine Nitrite Negative Urine Bilirubin Negative Urine Urobilinogen 0.2 Ur Leukocyte Esterase Negative Urine Glucose Negative COVID-19 Source SARS-CoV-2 (PCR) Influenza Type A (PCR) Influenza Type B (PCR) RSV (PCR) 09/09/21 09/09/21 09/09/21 02:15 02:50 06:25 WBC RBC Hgb Hct MCV MCH MCHC RDW Plt Count MPV Immature Gran % Neutrophils % Lymphocytes % Monocytes % Eosinophils % Basophils % Nucleated RBC % Absolute Neutrophils Absolute Lymphocytes Absolute Monocytes Absolute Eosinophils Absolute Basophils PT INR APTT VBG pH 7.29 L 7.42 H VBG pCO2 89 H* 64 H* VBG pO2 87 117 VBG HCO3 43 H 41 H VBG Total CO2 41 H VBG O2 Saturation 97 > 99 VBG Base Excess > 15 H > 15 H Sodium Potassium Chloride Carbon Dioxide Anion Gap BUN Creatinine Estimated GFR/1.73 m2 Glucose Calcium Total Bilirubin AST ALT Alkaline Phosphatase Troponin I 62 H* NT-Pro-B Natriuret Pep Total Protein Albumin Urine Color Urine Clarity Urine pH Ur Specific [place] Urine Protein Urine Ketones Urine Blood Urine Nitrite Urine Bilirubin Urine Urobilinogen Ur Leukocyte Esterase Urine Glucose COVID-19 Source SARS-CoV-2 (PCR) Influenza Type A (PCR) Influenza Type B (PCR) RSV (PCR) Reviewed Pertinent PMH: Yes Objective Narrative Objective Narrative: chest CT 09/08: IMPRESSION: 1. No evidence of pulmonary embolism, thoracic aortic dissection or aneurysm. 2. Stable bilateral pleural effusions and subjacent infiltrates. 3. Persistent filling defects seen in the right subclavian vein consist with the patient's known thrombus.
[2021-09-09] MEDS: Losartan 50 MG TAB 100 MG PO (09:18)
[2021-09-09] MEDS: predniSONE 20 MG TAB 40 MG PO (09:18)
[2021-09-09] MEDS: Apixaban 5 MG TAB 10 MG PO ×2 (09:19→20:28)
[2021-09-09] MEDS: Metoprolol CR 25 MG TABCR PO (09:19)
[2021-09-09] MEDS: POTASSIUM CHLORIDE/0.45% NACL 1,000 ML 75 MEQ IV ×2 (09:19→18:06)
[2021-09-09] MEDS: Azithromycin 250 MG TAB PO (09:19)
[2021-09-09] MEDS: Docusate Sodium 100 MG CAP PO ×2 (09:19→20:28)
[2021-09-09] MEDS: Tiotropium Bromide-Respimat 10 PUFF INH 2 PUFF IH (09:24)
[2021-09-09] MEDS: Budesonide/Formoterol 160/4.5 6 GM 60 PUFF INH IH ×2 (09:26→20:30)
[2021-09-09] MEDS: Pantoprazole 40 MG TABCR PO (11:05)
[2021-09-09] MEDS: Triamcinolone 0.1% CR 15 GM TUBE TP ×2 (11:06→20:30)
[2021-09-09 11:21] LABS: LDH 173 U/L (85-227); Troponin I 58 ng/L (<or=60)
[2021-09-09 11:53] LABS: Procalcitonin < 0.1 ng/mL
[2021-09-09 11:59] LABS: Folate 10.2 ng/mL (8.6-20.0); Vitamin B12 451 pg/mL (193-986)
--- NOTE | 2021-09-09 14:08 | W.PALLCONSUL ---
Date of service: 09/09/21 Time of Service: 13:08 History of Present Illness Narrative: Carlos Rodriguez is a 76 year old man with chronic respiratory failure on 4L of home O2 baseline, COPD, and multiple recent admissions with intubations associated with COPD exacerbation as well as recently diagnosed UE DVT and NSTEMI, who was discharged on 09/07 from [facility] to rehab and then sent back to [facility] overnight due to increasing SOB. Palliative care was consulted to discuss goals of care and address CODE status. Has advanced directives at [facility]. He reports that he was a DNR/DNI but decided to change to FULL code recently. His daughter, Terrie, did not recall that he was ever a DNR. Terrie reports that she is his Health care agent, she reports that there is documentation on file. We reviewed CODE status. He wishes to remain a FULL CODE at this time. The plan is for him to go to rehab and then move in with Terrie. Terrie is interested in continuing Palliative services after discharge from the hospital. Terrie is also hoping to get a hospital bed for him when he is at her house. Assessment and Plan Assessment and plan (1) Acute on chronic respiratory failure with hypoxia and hypercapnia: Status: Acute (2) Pleural effusion: Status: Acute (3) COPD (chronic obstructive pulmonary disease): (4) Palliative care patient: Status: Acute Assessment and plan: Carlos Rodriguez is a 76 year old man with chronic respiratory failure on 4L of home O2 baseline, COPD, and multiple recent admissions with intubations associated with COPD exacerbation as well as recently diagnosed UE DVT and NSTEMI, who was discharged on 09/07 from [facility] to rehab and then sent back to [facility] overnight due to increasing SOB. Palliative care was consulted to discuss goals of care and address CODE status. His daughter, Terrie was with him for the visit. They report that he has AD on file at [facility], CANDICE to get a copy. Terrie reports that she is his Health care agent, CM to get copy from [facility]. The plan is for him to go from [facility] to rehab and then to Terrie's home in [place]. Terrie is interested in continuing to be followed by Palliative care after discharge. Follow up with palliative care. Continue to discuss goals of care and CODE status. [facility] All Active Problems (Updated 09/09/21 @ 16:04 by Shira Suarez NP) Palliative care patient (Acute) Pleural effusion (Acute) Anemia (Chronic) Elevated troponin I level (Acute) Acute on chronic respiratory failure with hypoxia and hypercapnia (Acute) DVT prophylaxis (Acute) Discharge planning issues (Acute) Deep vein thrombosis, upper right extremity (Acute) Medical History COPD (chronic obstructive pulmonary disease) HTN (hypertension) Prostate cancer Surgical History No significant past surgical history Social History Smoking/Tobacco Use Status: Former Tobacco Use Smoking risk assessment performed?: Yes Alcohol Intake: current Substance use type: does not use Do you feel safe at home: Yes Do you feel safe in your relationship?: Yes Exam Narrative Exam Narrative: General: very pleasant, elderly man, laying in bed in the ICU with his daughter present. Gets confused at times while talking. HEENT: normocephalic, atraumatic, EOMI, mucous membranes moist. Neck: supple. Respiratory: Wearing oxygen, appears to be SOB at times while talking. No cough. Extremities: moves all extremities freely. Results Last Vital Signs Temp 37.0 C 09/09/21 13:28 Pulse 101 H 09/09/21 13:28 Resp 18 09/09/21 13:28 BP 119/52 L 09/09/21 13:28 Pulse Ox 96 09/09/21 13:28 Labs Result diagrams: 09/08/21 23:45 09/08/21 23:45 Labs: Laboratory Results - last 24 hr 09/08/21 09/08/21 09/08/21 23:45 23:45 23:45 WBC 9.89 RBC 3.14 L Hgb 8.3 L Hct 28.3 L MCV 90 MCH 26.4 L MCHC 29.3 L RDW 15.2 H Plt Count 261 MPV 9.6 Reticulocyte % (Auto) Immature Gran % 1.4 Neutrophils % 77.1 Lymphocytes % 8.5 Monocytes % 12.3 Eosinophils % 0.5 Basophils % 0.2 Nucleated RBC % 0.0 Absolute Neutrophils 7.62 H Absolute Lymphocytes 0.84 L Absolute Monocytes 1.22 H Absolute Eosinophils 0.05 Absolute Basophils 0.02 PT INR APTT VBG pH VBG pCO2 VBG pO2 VBG HCO3 VBG Total CO2 VBG O2 Saturation VBG Base Excess Sodium 139 Potassium 4.2 Chloride 99 Carbon Dioxide 42.8 H Anion Gap -2.8 L BUN 32 H Creatinine 0.7 Estimated GFR/1.73 m2 >= 60.00 Glucose 106 Calcium 8.0 L Total Bilirubin 0.2 AST 13 L ALT 16 Alkaline Phosphatase 76 Lactate Dehydrogenase Troponin I 55 NT-Pro-B Natriuret Pep 1316 H Total Protein 5.6 L Albumin 2.8 L Vitamin B12 Folate Procalcitonin Urine Color Urine Clarity Urine pH Ur Specific [place] Urine Protein Urine Ketones Urine Blood Urine Nitrite Urine Bilirubin Urine Urobilinogen Ur Leukocyte Esterase Urine Glucose COVID-19 Source Nasopharynx SARS-CoV-2 (PCR) Negative Influenza Type A (PCR) Negative Influenza Type B (PCR) Negative RSV (PCR) Negative 09/08/21 09/08/21 09/09/21 23:45 23:45 00:45 WBC RBC Hgb Hct MCV MCH MCHC RDW Plt Count MPV Reticulocyte % (Auto) Immature Gran % Neutrophils % Lymphocytes % Monocytes % Eosinophils % Basophils % Nucleated RBC % Absolute Neutrophils Absolute Lymphocytes Absolute Monocytes Absolute Eosinophils Absolute Basophils PT 11.6 H INR 1.2 H APTT 25.4 VBG pH 7.32 VBG pCO2 86 H* VBG pO2 46 VBG HCO3 44 H VBG Total CO2 43 H VBG O2 Saturation 76 VBG Base Excess > 15 H Sodium Potassium Chloride Carbon Dioxide Anion Gap BUN Creatinine Estimated GFR/1.73 m2 Glucose Calcium Total Bilirubin AST ALT Alkaline Phosphatase Lactate Dehydrogenase Troponin I NT-Pro-B Natriuret Pep Total Protein Albumin Vitamin B12 Folate Procalcitonin Urine Color Yellow Urine Clarity Clear Urine pH 6.5 Ur Specific [place] 1.020 Urine Protein Negative Urine Ketones Negative Urine Blood Negative Urine Nitrite Negative Urine Bilirubin Negative Urine Urobilinogen 0.2 Ur Leukocyte Esterase Negative Urine Glucose Negative COVID-19 Source SARS-CoV-2 (PCR) Influenza Type A (PCR) Influenza Type B (PCR) RSV (PCR) 09/09/21 09/09/21 09/09/21 02:15 02:50 06:25 WBC RBC Hgb Hct MCV MCH MCHC RDW Plt Count MPV Reticulocyte % (Auto) Immature Gran % Neutrophils % Lymphocytes % Monocytes % Eosinophils % Basophils % Nucleated RBC % Absolute Neutrophils Absolute Lymphocytes Absolute Monocytes Absolute Eosinophils Absolute Basophils PT INR APTT VBG pH 7.29 L 7.42 H VBG pCO2 89 H* 64 H* VBG pO2 87 117 VBG HCO3 43 H 41 H VBG Total CO2 41 H VBG O2 Saturation 97 > 99 VBG Base Excess > 15 H > 15 H Sodium Potassium Chloride Carbon Dioxide Anion Gap BUN Creatinine Estimated GFR/1.73 m2 Glucose Calcium Total Bilirubin AST ALT Alkaline Phosphatase Lactate Dehydrogenase Troponin I 62 H* NT-Pro-B Natriuret Pep Total Protein Albumin Vitamin B12 Folate Procalcitonin Urine Color Urine Clarity Urine pH Ur Specific [place] Urine Protein Urine Ketones Urine Blood Urine Nitrite Urine Bilirubin Urine Urobilinogen Ur Leukocyte Esterase Urine Glucose COVID-19 Source SARS-CoV-2 (PCR) Influenza Type A (PCR) Influenza Type B (PCR) RSV (PCR) 09/09/21 09/09/21 09/09/21 10:55 10:55 10:55 WBC RBC Hgb Hct MCV MCH MCHC RDW Plt Count MPV Reticulocyte % (Auto) 4.0 H Immature Gran % Neutrophils % Lymphocytes % Monocytes % Eosinophils % Basophils % Nucleated RBC % Absolute Neutrophils Absolute Lymphocytes Absolute Monocytes Absolute Eosinophils Absolute Basophils PT INR APTT VBG pH VBG pCO2 VBG pO2 VBG HCO3 VBG Total CO2 VBG O2 Saturation VBG Base Excess Sodium Potassium Chloride Carbon Dioxide Anion Gap BUN Creatinine Estimated GFR/1.73 m2 Glucose Calcium Total Bilirubin AST ALT Alkaline Phosphatase Lactate Dehydrogenase 173 Troponin I 58 NT-Pro-B Natriuret Pep Total Protein Albumin Vitamin B12 451 Folate 10.2 Procalcitonin Urine Color Urine Clarity Urine pH Ur Specific [place] Urine Protein Urine Ketones Urine Blood Urine Nitrite Urine Bilirubin Urine Urobilinogen Ur Leukocyte Esterase Urine Glucose COVID-19 Source SARS-CoV-2 (PCR) Influenza Type A (PCR) Influenza Type B (PCR) RSV (PCR) 09/09/21 10:55 WBC RBC Hgb Hct MCV MCH MCHC RDW Plt Count MPV Reticulocyte % (Auto) Immature Gran % Neutrophils % Lymphocytes % Monocytes % Eosinophils % Basophils % Nucleated RBC % Absolute Neutrophils Absolute Lymphocytes Absolute Monocytes Absolute Eosinophils Absolute Basophils PT INR APTT VBG pH VBG pCO2 VBG pO2 VBG HCO3 VBG Total CO2 VBG O2 Saturation VBG Base Excess Sodium Potassium Chloride Carbon Dioxide Anion Gap BUN Creatinine Estimated GFR/1.73 m2 Glucose Calcium Total Bilirubin AST ALT Alkaline Phosphatase Lactate Dehydrogenase Troponin I NT-Pro-B Natriuret Pep Total Protein Albumin Vitamin B12 Folate Procalcitonin < 0.1 Urine Color Urine Clarity Urine pH Ur Specific [place] Urine Protein Urine Ketones Urine Blood Urine Nitrite Urine Bilirubin Urine Urobilinogen Ur Leukocyte Esterase Urine Glucose COVID-19 Source SARS-CoV-2 (PCR) Influenza Type A (PCR) Influenza Type B (PCR) RSV (PCR)
--- NOTE | 2021-09-09 14:24 | IN_ITS ---
Date of service: 09/09/21 Time of Service: 14:00 PT Notes Visit Reasons: Respiratory Failure Physical Therapy Inpatient Initial Evaluation Date: 09/09/2021 Referring Doctor: Sylvester Oneill PT Orders: PT CONSULT: Eval/Treat Precautions: Fall. Standard. Activity as tolerated. Patient Profile/Admitting Diagnosis: Carlos is a 76-year-old male who presented to the ED on 09/08/2021 from the [facility] and rehab due to acute respiratory distress and hypoxia. PMHX: All Active Problems?(Updated 09/09/21 @ 05:52 by Sylvester Oneill) DVT prophylaxis (Acute) Discharge planning issues (Acute) Hypoxic episode (Acute) Deep vein thrombosis, upper right extremity (Acute) NSTEMI (non-ST elevated myocardial infarction) (Acute) Acute respiratory failure with hypoxia and hypercarbia (Acute) Acute respiratory distress (Acute) Acute exacerbation of chronic obstructive pulmonary disease (Acute) Medical History COPD (chronic obstructive pulmonary disease) HTN (hypertension) Prostate cancer Surgical History No significant past surgical history Social History/Home Situation: Carlos previously lived alone in a private home with 2 steps to enter however patient states that once he goes home from SNF he will be headed back to his daughter's house with 4 steps to enter with rails on both sides. Daughter and daughter's family will be providing all the care that he needs as he recovers at their house. Ambulatory inside his house without an assistive device although he states that he has been doing a lot of holding onto furnitures because of a chronic balance issue. Equipment Owned/DME: None Subjective: Reports that he feels a little better than he did last night. Agreeable to PT consult. He notes that he is unsure what happened last night for felt that his machine was working great and then awoken with increased SOB. He notes that prior to his last discharge from the hospital a couple of days ago he was doing so much better and was encouraged. Frustrated that he is right back where he started. . Objective: General Observation: Supine in bed with HOB elevated to 30 degrees. Telemetry monitoring in place. On 2 L of oxygen per minute via NC. Mental Status: Alert and oriented as to person, place, time, and purpose. Able to pay attention, focus, and respond appropriately. Speech sometimes can get a little garbled. Pain: Denies Vital Signs: Oxygen saturation at rest 91% on 2 L of oxygen via NC. Desaturation to 88% after sitting up from supine to side of bed, required about 1 minutes of seated rest before being titrated back up to 92% on 2 L of oxygen ROM: Right Upper Extremity: Shoulder Flexion WFL. Shoulder abduction WFL. Elbow flexion WFL. Wrist flexion WFL. Functional opening and closing of hand WFL. Left Upper Extremity: Shoulder Flexion WFL. Shoulder abduction WFL. Elbow flexion WFL. Wrist flexion WFL. Functional opening and closing of hand WFL. Right Lower Extremity: Hip flexion WFL. Hip abduction WFL. Knee flexion WFL. Ankle dorsiflexion WFL. Ankle plantarflexion WFL. Left Lower Extremity: Hip flexion WFL. Hip abduction WFL. Knee flexion WFL. Ankle dorsiflexion WFL. Ankle plantarflexion WFL. Strength: Right Upper Extremity: Shoulder flexors 4-/5. Shoulder abductors 4-/5. Elbow flexors 4/5. Elbow extensors 4-/5. Roller Shop Supervisor strong. Left Upper Extremity: Shoulder flexors 4-/5. Shoulder abductors 4-/5. Elbow flexors 4/5. Elbow extensors 4-/5. Roller Shop Supervisor strong. Right Lower Extremity: Hip flexors 4-/5. Hip abductors 4-/5. Knee flexors 5/5. Knee extensors 4-/5. Ankle dorsiflexors 4-/5. Ankle plantarflexors 4/5. Left Lower Extremity: Hip flexors 4-/5. Hip abductors 4-/5. Knee flexors 5/5. Knee extensors 4-/5. Ankle dorsiflexors 4-/5. Ankle plantarflexors 4/5. Bed Mobility/Transfers: Supine to sit with standby assist and minimal difficulty. Able to sit up bedside for 5 minutes prior to fatigue and asks to get back into bed. Sit to stand tries without success. Refused further trials due to fatigue Gait: Not assessed at todays session Balance: Static Sitting: Normal Dynamic Sitting: Normal Static Standing: Not assessed Dynamic Standing: Not assessed Special Tests: Mobility Limitations Standardized Measure [facility] 6 clicks Basic Mobility Inpatient Short Form: Raw Score: 15 CMS Score: 58% deficit Informed Consent/Education: Patient was instructed in purpose of PT consult and plan of care and is agreeable to proceed with established PT POC to achieve personal goals. Assessment: Carlos demonstrates functional mobility decline requiring the use of front-wheel ed walker and the assistance of 1 caregiver for all mobility ADL performance. Patient presents with clinical signs and symptoms consistent with current/admitting diagnoses that have resulted to mobility limitations, gait instability, generalized weakness, and overall ADL decline as demonstrated by the following impairment level findings: 1. Decreased strength to B UE LE major muscle groups 2. Impaired standing balance 3. Impaired activity tolerance 4. Shortness of breath on exertion Impairments are contributing to the following functional limitations: 1. Decline in bed mobility skills 2. Decline in transfer skills 3. Difficulty with ambulation without assistive device and physical assistance 4. Increased completion time for mobility ADL performance 5. Increased risk for falls 6. Difficulty with managing steps alone safely Patient is assessed as a 89925 moderate complexity based on the following: History: 76-year-old male with past medical history as indicated above Examination: Demonstrable impairment in strength, balance, and mobility level with underlying impairments and functional limitations as exhibited above as well as deficit score of 58% utilizing the [facility] Mobility Inpatient Short Form Presentation: Evolving [id number] moderate complexity Decision Making: moderate complexity Goals: Goals X1 week 1. Supine-Sit independent 2. Sit-Supine independent 3. Sit-Stand independent 4. Stand-Sit independent with FWW 5. Bed-Chair independent with FWW 6. Chair-Bed independent with FWW 7. Independent gait on level surface with use of least restrictive assistive device as needed for at least 50 feet without report of pain nor dyspnea 8. Independent stair negotiation while holding onto B rails for at least 5 steps without report of pain nor dyspnea 9. Good static and dynamic standing balance/tolerance Plan of Care/Treatment Plan: 1-2x/day, 7 days/week x 1 week. Plan of care has been reviewed with the LPN MEDICAL ASSISTANT providing the service under Physical Therapy direction. Initiate Physical Therapy intervention for pain management as needed, strengthening, bed mobility, transfers, gait, stairs, balance training, and use of assistive device. DISCHARGE RECOMMENDATIONS: SNF for continued rehabilitation. Return to SNF when medically cleared by hospitalist. Recommend use of FWW for all ambulation TREATMENT CODE/TIME: 92211 x 25 minutes beginning at 14:00 PM. Thank you for the opportunity to participate in the care of this patient. Shira Austin, MPT [facility] [place], [place] Disclaimer: This note was created using [employer] voice recognition software. It was reviewed for major content. However, there may be multiple small discrepancies and errors due to the voice recognition aspects of the software.
--- NOTE | 2021-09-09 17:05 | INITIAL_ITS ---
- If Service Date Differs Date of service: 09/09/21 Time of Service: 17:05 Care Management Initial Assess REASON FOR HOSPITALIZATION:: Respiratory Failure PAST MEDICAL HISTORY/PAST SURGICAL HISTORY:: All Active Problems. DVT prophylaxis (Acute). Discharge planning issues (Acute). Hypoxic episode (Acute). Deep vein thrombosis, upper right extremity (Acute). NSTEMI (non-ST elevated myocardial infarction) (Acute). Acute respiratory failure with hypoxia and hypercarbia (Acute). Acute respiratory distress (Acute). Acute exacerbation of chronic obstructive pulmonary disease (Acute). Medical History. COPD (chronic obstructive pulmonary disease). HTN (hypertension). Prostate cancer. Surgical History. No significant past surgical history PREVIOUS FUNCTIONAL STATUS/SOCIAL/FAMILY SUPPORTS:: Carlos lives in [facility], but is currently at [facility] for short term rehab. He was recently hospitalized at [facility], who placed him at [facility]. He lives with his , Lizzie. He has six children- two biological, two step children, and two adopted. He was independent before his prolonged hospitalization at [facility]. CURRENT FUNCTIONAL STATUS:: Carlos was sleeping when CM visited today, but his daughter Terrie was in the room visiting. CM discussed her concerns about Carlos returning to [facility], as he has been hospitalized twice since being admitted to their facility. She stated that they are agreeable to having referrals sent to all facilities with bed availability. Per MD, he may qualify for a Trilogy to assist with his breathing, which could limit his choices for SNF placement. CM will continue to follow. ADVANCE DIRECTIVES:: Not on file. Terrie (daughter) stated that he filled out paperwork at [facility], and made her HC agent. Has patient been provided with info about the portal/API?: Yes Did the patient sign up for the portal?: No CODE STATUS:: Full Code INSURANCE COVERAGE / FINANCIAL ISSUES:: MCR/ BCBS CURRENT HOME/COMMUNITY SERVICES/EQUIPMENT:: Carlos is currently receiving short term rehab at [facility] PRIMARY CARE PHYSICIAN:: Luis Antonio Medina- facility provider POTENTIAL DISCHARGE NEEDS:: Evaluations for further needs, referrals to alternate SNF's, follow up appointments. PATIENT/FAMILY EDUCATION NEEDS:: Review discharge instructions and limitations, discussion of self care needs including ask me three. ANTICIPATED BARRIERS TO DISCHARGE:: Carlos will likely require alternate placement upon discharge, as well as a Trilogy machine. TRANSPORTATION:: w/c van vs private vehicle. PLAN:: CM will send referrals for Carlos to go to an alternative SNF upon discharge. His transport will depend on disposition. He will follow up with his PCP and discharge plan of care. CM will continue to follow. Readmission - Within the Past 30 Days Yes or No: Y - Date of First Admission Date of 1st Admission: 09/04/21 - Date of this Admission Date of Admission: 09/08/21 This admission was: Through ED - Office Visit Since 1st Admission Have you seen your PCP in the office since discharge?: No Had an appointment Been Scheduled?: No Describe barriers for scheduling or getting an appointment: Carlos is currently at a SNF for short term rehab. - I. Interview patient and/or Family Have you had trouble purchasing/ or taking medication?: No Describe barriers fpr purchasing or taking medication: Set up at facility. Have you had trouble with getting meals at home?: No Did you feel ready for discharge when you left the last time: Yes Were services received that you thought were set up on disch: Yes What services were received?: Return to [facility] - ED visits How many ED visits in the past 12 months: 2 - Assessment for Readmission Summary of readmission circumstances, based upon interviews: Carlos was ready for discharge when he returned to [facility] two days ago. He returned after reportedly not wearing his Bipap mask, and struggling to breath. Per MD, he may qualify for a trilogy machine. RT is coordinating this equipment. His daughter feels very strongly that he not return to [facility]. CM will send r eferrals for alternate placement.
[2021-09-09] MEDS: Ipratropium 0.5 MG/2.5 ML UPD VIAL IH ×2 (17:10→20:28)
[2021-09-09 23:24] LABS: HCT 24.6 % (40.0-50.0); HGB 7.1 g/dL (13.5-17.5)
[2021-09-10] VITALS (47 sets, daily range): BP systolic 105–145; BP diastolic 47–85; PULSE 79–102; RESP 4–39; TEMP 36.7–37.5; O2SAT 86–97
[2021-09-10] MEDS: Pantoprazole 40 MG VIAL IVP (00:36)
[2021-09-10] MEDS: Acetaminophen 325 MG TAB 650 MG PO (01:05)
[2021-09-10] MEDS: diphenhydrAMINE 25 MG CAP PO (01:05)
[2021-09-10 06:34] LABS: BE (Venous) 15 mmol/L (-2-3); HCO3 (Venous) 40 mmol/L (23-28); O2 Sat (Venous) 99 %; TCO2 (Venous) 39 mmol/L (24-29); pH (Venous) 7.36 (7.31-7.41); pO2 (Venous) 98 mmHg
[2021-09-10 06:35] LABS: pCO2 (Venous) 72 mmHg (41-51)
[2021-09-10 06:45] LABS: Abs Immature Grans 0.14 10^3/uL (0.0-0.06); Absolute Basophil Count 0.01 10^3/uL (0.0-0.2); Absolute Eosinophil Count 0.12 10^3/uL (0.0-0.7); Absolute Lymphocyte Count 0.94 10^3/uL (1.2-3.4); Absolute Neutrophil Count 8.18 10^3/uL (1.2-6.7); Basophils % 0.1; Eosinophils % 1.1; HCT 26.9 % (40.0-50.0); HGB 7.9 g/dL (13.5-17.5); Immature Grans % 1.3; Lymphocytes % 8.6; MCH 26.5 pg (27.0-33.0); MCHC 29.4 % (32.0-36.0); MCV 90 fL (80-95); MPV 9.7 fL (8.0-11.0); Monocytes % 14.2; Neutrophils % 74.7; Nucleated RBC 0.2 % (0.0-0.3); Platelet Count 229 10^3/uL (130-400); RBC 2.98 10^6/uL (4.36-5.78); RDW 15.3 % (11.8-14.1); RDW-SD 50.2 fL; WBC 10.95 10^3/uL (4.4-10.8)
[2021-09-10 06:49] LABS: Absolute Monocyte Count 1.55 10^3/uL (0.1-0.8)
[2021-09-10 06:58] LABS: Anion Gap -2.7 mmol/L (3-11); BUN 26 mg/dL (7-18); CO2 38.7 mmol/L (21.0-32.0); CREATININE 0.7 mg/dL (0.70-1.30); Calcium 7.9 mg/dL (8.5-10.1); Chloride 102 mmol/L (98-107); Glucose 85 mg/dL (74-106); Potassium 4.9 mmol/L (3.5-5.1); Sodium 138 mmol/L (136-145)
[2021-09-10 07:09] LABS: Diff Comment Agrees w/ Instrument; Polychromasia Present
[2021-09-10] MEDS: Tiotropium Bromide-Respimat 10 PUFF INH 2 PUFF IH (07:18)
[2021-09-10] MEDS: Budesonide/Formoterol 160/4.5 6 GM 60 PUFF INH IH ×2 (07:19→19:32)
[2021-09-10] MEDS: Docusate Sodium 100 MG CAP PO ×2 (08:43→19:32)
[2021-09-10] MEDS: Losartan 50 MG TAB 100 MG PO (08:43)
[2021-09-10] MEDS: Azithromycin 250 MG TAB PO (08:43)
[2021-09-10] MEDS: predniSONE 20 MG TAB 40 MG PO (08:44)
[2021-09-10] MEDS: Pantoprazole 40 MG TABCR PO ×2 (08:44→19:32)
[2021-09-10] MEDS: Metoprolol CR 25 MG TABCR PO (08:44)
[2021-09-10] MEDS: Triamcinolone 0.1% CR 15 GM TUBE TP ×2 (08:45→19:32)
--- NOTE | 2021-09-10 09:14 | PGE_ITS ---
Date of Service Date of service: 09/10/21 Time of Service: 08:14 Assessment and Plan Assessment and plan (1) Acute on chronic respiratory failure with hypoxia and hypercapnia: Status: Acute Assessment and plan: Continue with COPD treatment with L.A.M.A. and ICS As well as as needed updrafts of DuoNeb. Patient remains on prednisone but I will taper this off in light of his GI bleeding. Continue supportive care with BiPAP. Respiratory therapy is working to get him in auto adapting BiPAP for at home. (2) GI bleeding: Status: Chronic Assessment and plan: Probably upper GI bleeding given the melanotic nature of his stools. Carafate added to his Protonix regimen. Because of his severe respiratory problems it is unlikely that anesthesia and surgery would agree to EGD at this time unless it became a life-threatening bleed. If that were the case she would probably need to be intubated prior to his EGD to control his airway. I will monitor his H&H and if his hemoglobin does not come up over 8 g we will give him another unit of blood. Critical care time spent interviewing and examining the patient, reviewing studies, discussing case with patient's nurse and consulting physicians was 45 minutes (3) Deep vein thrombosis, upper right extremity: Status: Acute Assessment and plan: Apixaban on for 24 to 48 hours while we assess stability from his recent GI bleeding. Patient's been put on Carafate in addition to Protonix. (4) COPD (chronic obstructive pulmonary disease): Assessment and plan: treat w/ LAMA (Spirva) and ICS and prn albuterol. continue BIPAP. try to get him approved for Trilogy (APAP). (5) Elevated troponin I level: Status: Acute Assessment and plan: Secondary to type II demand ischemia from his hypoxemia. Repeat troponin came back down to normal yesterday. (6) Anemia: Status: Chronic Assessment and plan: Apparently has some GI source of his anemia given his melanotic stool last night and drop in his hemoglobin. I have added Carafate and doubled up the dose of his Protonix. We will hold his apixaban for 24 to 48 hours and if he is stable I will resume his apixaban for his DVT of his right arm. (7) Pleural effusion: Status: Acute Assessment and plan: stable bilateral effusions along w/ subjacent infiltrates on most recent CT scan of the chest. clinically he is not acting like a pneumonia i.e. no fevers nor sputum production. He was on azithromycin which was continued on admission. I will continue for 5 days then stop. If he developes fevers or rising WBC or elevated procalcitonin then consider HCAP and then I would broaden antibiotics coverage. Subjective Subjective Interval history since last seen: Patient did well with BiPAP overnight. He denies any shortness of breath this morning. However he did have melanotic stools during the night. Hemoglobin dropped last night to 7.1 g and the cloud operations engineer gave him 1 unit of packed red cells. Repeat hemoglobin 7.9 g this morning. Apixaban has been stopped. He was on this for DVT of his right arm. We will hold the Lovenox for a day and see if his H&H stabilizes. He may need further transfusion this afternoon. I will keep him in the ICU for today given his recent GI bleeding. He was given IV Protonix last night and he will be put on twice daily dosing of Protonix as well as Carafate added to his regimen. Exam Narrative Exam Narrative: Carlos is alert he is oriented person place time circumstance able to carry on full conversations without dyspnea. He is wearing his nasal cannula he just ate breakfast. Lungs with prolonged expiratory phase no rhonchi wheezes or rales Heart is regular rate and rhythm Abdomen soft nondistended normal bowel sounds nontender no guarding Extremities without peripheral cyanosis or edema Objective Last Vital Signs Temp 37.2 C 09/10/21 08:16 Pulse 93 H 09/10/21 08:16 Resp 18 09/10/21 08:16 BP 136/74 09/10/21 08:16 Pulse Ox 92 09/10/21 08:16 Laboratory Results - last 24 hr 09/09/21 09/09/21 09/09/21 10:55 10:55 10:55 WBC RBC Hgb Hct MCV MCH MCHC RDW Plt Count MPV Reticulocyte % (Auto) 4.0 H Immature Gran % Neutrophils % Lymphocytes % Monocytes % Eosinophils % Basophils % Nucleated RBC % Absolute Neutrophils Absolute Lymphocytes Absolute Monocytes Absolute Eosinophils Absolute Basophils RBC Morphology Polychromasia VBG pH VBG pCO2 VBG pO2 VBG HCO3 VBG Total CO2 VBG O2 Saturation VBG Base Excess Sodium Potassium Chloride Carbon Dioxide Anion Gap BUN Creatinine Estimated GFR/1.73 m2 Glucose Calcium Lactate Dehydrogenase 173 Troponin I 58 Vitamin B12 451 [address] [facility] Patient ABO/Rh Antibody Screen Crossmatch 09/09/21 09/09/21 09/09/21 10:55 19:39 23:13 WBC RBC Hgb 7.1 L Hct 24.6 L MCV MCH MCHC RDW Plt Count MPV Reticulocyte % (Auto) Immature Gran % Neutrophils % Lymphocytes % Monocytes % Eosinophils % Basophils % Nucleated RBC % Absolute Neutrophils Absolute Lymphocytes Absolute Monocytes Absolute Eosinophils Absolute Basophils RBC Morphology Polychromasia VBG pH VBG pCO2 VBG pO2 VBG HCO3 VBG Total CO2 VBG O2 Saturation VBG Base Excess Sodium Potassium Chloride Carbon Dioxide Anion Gap BUN Creatinine Estimated GFR/1.73 m2 Glucose Calcium Lactate Dehydrogenase Troponin I Vitamin B12 Folate Procalcitonin < 0.1 [facility] Cancelled Patient ABO/Rh Antibody Screen Crossmatch 09/09/21 09/10/21 09/10/21 23:50 06:20 06:20 WBC 10.95 H RBC 2.98 L Hgb 7.9 L Hct 26.9 L MCV 90 MCH 26.5 L MCHC 29.4 L RDW 15.3 H Plt Count 229 MPV 9.7 Reticulocyte % (Auto) Immature Gran % 1.3 Neutrophils % 74.7 Lymphocytes % 8.6 Monocytes % 14.2 Eosinophils % 1.1 Basophils % 0.1 Nucleated RBC % 0.2 Absolute Neutrophils 8.18 H Absolute Lymphocytes 0.94 L Absolute Monocytes 1.55 H Absolute Eosinophils 0.12 Absolute Basophils 0.01 RBC Morphology See Below Polychromasia Present VBG pH VBG pCO2 VBG pO2 VBG HCO3 VBG Total CO2 VBG O2 Saturation VBG Base Excess Sodium 138 Potassium 4.9 Chloride 102 Carbon Dioxide 38.7 H Anion Gap -2.7 L BUN 26 H Creatinine 0.7 Estimated GFR/1.73 m2 >= 60.00 Glucose 85 Calcium 7.9 L Lactate Dehydrogenase Troponin I Vitamin B12 Folate Procalcitonin [facility] Patient ABO/Rh B Positive Antibody Screen NEGATIVE Crossmatch See Detail 09/10/21 06:20 WBC RBC Hgb Hct MCV MCH MCHC RDW Plt Count MPV Reticulocyte % (Auto) Immature Gran % Neutrophils % Lymphocytes % Monocytes % Eosinophils % Basophils % Nucleated RBC % Absolute Neutrophils Absolute Lymphocytes Absolute Monocytes Absolute Eosinophils Absolute Basophils RBC Morphology Polychromasia VBG pH 7.36 VBG pCO2 72 H* VBG pO2 98 VBG HCO3 40 H VBG Total CO2 39 H VBG O2 Saturation 99 VBG Base Excess 15 H Sodium Potassium Chloride Carbon Dioxide Anion Gap BUN Creatinine Estimated GFR/1.73 m2 Glucose Calcium Lactate Dehydrogenase Troponin I Vitamin B12 Folate Procalcitonin [facility] Patient ABO/Rh Antibody Screen Crossmatch
--- NOTE | 2021-09-10 10:16 | NUR.NOTE ---
RN speaks to patient about his plans for discharge. Patient would like to live with his daughter, Terrie, when he is able. RN speaks to patient extensively about his life. 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 Patient's will be in to see him today at noon. Case management will meet with at that time as well. Nursing Note:
--- NOTE | 2021-09-10 10:41 | PDOC.CMPRO ---
- If Service Date Differs Date of service: 09/10/21 Time of Service: 10:41 Care Management Progress Note S/O: Carlos was sitting up in bed when CM met with him. His , Lizzie, was in the room visiting. CM discussed his discharge plans, stating that referrals have been sent to all facilities in [place], CM will follow up. Carlos plans to go to live with his daughter Terrie, temporarily, once he has completed short term rehab. He asked if he would be able to go straight to her home, instead of going to rehab. CM stated that he would likely remain inpatient over the weekend, per MD, and he can be re evaluated by PT to determine if he is ready to go home with 24/7 support vs go to SNF. CM will continue to follow. A: Carlos is a 76 year old male admitted to [facility] on 09/09/21 with respiratory failure. P: Carlos will likely go to SNF for continued short term rehab vs return home with his daughter. CM sent referrals for Carlos to go to an alternative SNF upon discharge. His transport will depend on disposition. He will follow up with his PCP and discharge plan of care. CM will continue to follow.
--- NOTE | 2021-09-10 11:29 | NUR.NOTE ---
Physical therapist works with patient.Nursing Note:
[2021-09-10] MEDS: Sucralfate 1 GM TAB PO ×3 (11:34→23:12)
--- NOTE | 2021-09-10 11:37 | NUR.NOTE ---
Patient resting in bed with no needs identified.Nursing Note:
--- NOTE | 2021-09-10 12:02 | NUR.NOTE ---
Patient's Hemogram is taken by center medical and lab director.Nursing Note:
--- NOTE | 2021-09-10 12:03 | NUR.NOTE ---
Patient is set up [id number] his lunch tray.Nursing Note:
[2021-09-10 12:13] LABS: HCT 28.8 % (40.0-50.0); HGB 8.5 g/dL (13.5-17.5)
--- NOTE | 2021-09-10 12:28 | PT.INTREAT ---
Date of service: 09/10/21 Time of Service: 11:08 PT Notes Visit Reasons: Respiratory Failure Inpatient Physical Therapy Treatment Note [facility] Date: 09/10/2021 PRECAUTIONS: Activity as tolerated SUBJECTIVE: Carlos is pleasant and agreeable to participating in PT. He reports that he did not sleep well last night. He is awaiting his 's visit today, as it is their 27 anniversary. OBJECTIVE: PAIN: No c/o pain BED MOBILITY/TRANSFERS: Held in a.m., per nursing due to low H&H values Supine-sit: S Sit-supine: S Sit-stand: SBA Stand-sit: SBA GAIT: Held in a.m. due to low H&H values Assistive Device: FWW Weight bearing: Full Assist: SBA Distance: 40' + 60' Deviation: SOB, fatigue, seated rest VITALS: 89-91% on 2L O2 with ther ex, turned up to 3L O2 midway through ther ex with 91-94% in a.m.; 86-93% on 3-4L O2 with gait training in p.m. THEREX: Patient was instructed in an UE and LE strengthening and stabilization, completed in a supine position, to include: ankle pumps, glute sets, quad sets, heel slides, hip abduction, bridging, shoulder flexion, shoulder horizontal abduction. ASSESSMENT: Patient demonstrates decreased activity tolerance. He requires frequent rests between exercises due to SOB and fatigue. He was able to tolerate gait training with FWW support and SBA. He requires seated rest due to SOB and fatigue. PLAN: Continue with global strengthening and general conditioning, and gait and transfer training for improved activity tolerance and mobility. TREATMENT CODE/TIME: Session 1: 18 minutes; [id number] (11:08) Session 2: 23 minutes; [id number] x2 (14:39)
--- NOTE | 2021-09-10 13:21 | NUR.NOTE ---
is in to visit.Nursing Note:
--- NOTE | 2021-09-10 13:33 | NUR.NOTE ---
Hemoglobin now 8.5.Nursing Note:
--- NOTE | 2021-09-10 14:02 | NUR.NOTE ---
Patient getting some much needed sleep.
--- NOTE | 2021-09-10 14:45 | NUR.NOTE ---
Physical therapist begins working with patient.Nursing Note:
--- NOTE | 2021-09-10 14:56 | NUR.NOTE ---
Patient ambulates from his room to ICU doors on 4 liters sating between 88% - 92%. Patient rests half the way thru the walk.Nursing Note:
[2021-09-10] MEDS: POTASSIUM CHLORIDE/0.45% NACL 1,000 ML 75 MEQ IV (15:12)
--- NOTE | 2021-09-10 16:17 | NUR.NOTE ---
Coal Yard Supervisor meets with patient's daughter, Terrie.Nursing Note:
[2021-09-10] MEDS: Ipratropium 0.5 MG/2.5 ML UPD VIAL IH (19:32)
[2021-09-11] VITALS (44 sets, daily range): BP systolic 94–155; BP diastolic 50–137; PULSE 76–115; RESP 8–39; TEMP 36.8–37.4; O2SAT 70–97
[2021-09-11] MEDS: POTASSIUM CHLORIDE/0.45% NACL 1,000 ML 75 MEQ IV (03:57)
--- NOTE | 2021-09-11 07:33 | NUR.NOTE ---
During in room report, patient's 02 saturation was in the 70's. Nasal cannula is readjusted and 02 increased to 4.5 liters to get saturation to between 88 and 92%. Patient is confused but mentation improved as patient's 02 saturation improved.Nursing Note:
[2021-09-11] MEDS: Budesonide/Formoterol 160/4.5 6 GM 60 PUFF INH IH (08:00)
[2021-09-11] MEDS: Tiotropium Bromide-Respimat 10 PUFF INH 2 PUFF IH (08:01)
[2021-09-11] MEDS: Azithromycin 250 MG TAB PO (08:15)
[2021-09-11] MEDS: Docusate Sodium 100 MG CAP PO (08:15)
[2021-09-11] MEDS: Sucralfate 1 GM TAB PO ×2 (08:16→12:49)
[2021-09-11] MEDS: Losartan 50 MG TAB 100 MG PO (08:16)
[2021-09-11] MEDS: Pantoprazole 40 MG TABCR PO (08:16)
[2021-09-11] MEDS: predniSONE 20 MG TAB 40 MG PO (08:16)
[2021-09-11] MEDS: Metoprolol CR 25 MG TABCR PO (08:16)
[2021-09-11] MEDS: Triamcinolone 0.1% CR 15 GM TUBE TP (08:17)
--- NOTE | 2021-09-11 10:06 | NUR.NOTE ---
RN calls lab to see on what delay is on resulting labs. laboratory tech will report to ICU shortly to draw patient.Nursing Note:
--- NOTE | 2021-09-11 10:12 | PGE_ITS ---
Date of Service Date of service: 09/11/21 Time of Service: 09:12 Assessment and Plan Assessment and plan (1) Acute on chronic respiratory failure with hypoxia and hypercapnia: Status: Acute Assessment and plan: Continue with COPD treatment with L.A.M.A. and ICS As well as as needed updrafts of DuoNeb. Patient remains on prednisone but I will taper this off in light of his GI bleeding. Continue supportive care with BiPAP. Respiratory therapy is working to get him in auto adapting BiPAP for at home. Patient is hemodynamically stable and stable from respiratory standpoint to be transferred to the medical floor Surgical floor. Continue use of BiPAP at night or whenever he naps during the day. Professional time spent interviewing and examining patient, discussion of goals of care with hospital team (care management, nursing and consulting professionals) was 30 minutes. (2) GI bleeding: Status: Chronic Assessment and plan: Probably upper GI bleeding given the melanotic nature of his stools. Carafate added to his Protonix regimen. Because of his severe respiratory problems it is unlikely that anesthesia and surgery would agree to EGD at this time unless it became a life-threatening bleed. If that were the case she would probably need to be intubated prior to his EGD to control his airway. No overt bleeding. Still Hemoccult positive. Hemoglobin hematocrit are stable at 8.6 and 29.9. Continue GI protection avoid use of NSAIDs or aspirin p roducts. If no overt bleeding and H&H is stable tomorrow resume his apixaban tomorrow. (3) Deep vein thrombosis, upper right extremity: Status: Acute Assessment and plan: Apixaban on for 24 to 48 hours while we assess stability from his recent GI bleeding. Patient's been put on Carafate in addition to Protonix. (4) COPD (chronic obstructive pulmonary disease): Assessment and plan: treat w/ LAMA (Spirva) and ICS and prn albuterol. continue BIPAP. try to get him approved for Trilogy (APAP). (5) Elevated troponin I level: Status: Acute Assessment and plan: Secondary to type II demand ischemia from his hypoxemia. Repeat troponin came back down to normal yesterday. Echocardiogram showed preserved LV function with an EF 55% no wall motion abnormalities. However he does have a dilated right ventricle that is mildly diffusely hypocontractile. He has moderate mitral regurgitation and mild to moderate tricuspid regurgitation with moderate pulmonary hypertension. RVSP 54 mm (6) Anemia: Status: Chronic Assessment and plan: Apparently has some GI source of his anemia given his melanotic stool last night and drop in his hemoglobin. I have added Carafate and doubled up the dose of his Protonix. We will hold his apixaban for 24 to 48 hours and if he is stable I will resume his apixaban for his DVT of his right arm. (7) Pleural effusion: Status: Acute Assessment and plan: stable bilateral effusions along w/ subjacent infiltrates on most recent CT scan of the chest. clinically he is not acting like a pneumonia i.e. no fevers nor sputum production. He was on azithromycin which was continued on admission. I will continue for 5 days then stop. If he developes fevers or rising WBC or elevated procalcitonin then consider HCAP and then I would broaden antibiotics coverage. (8) DVT prophylaxis: Status: Acute Assessment and plan: Will resume apixaban tomorrow if no overt bleeding. (9) Discharge planning issues: Status: Acute Assessment and plan: Family does not want him to return to [facility]. [facility]errals have been made to the [facility]. Subjective Subjective Patient reports: no new complaints and feels better; denies nausea, vomiting or shortness of breath Exam Narrative Exam Narrative: Mr. Rodriguez is alert and oriented person place and circumstance. He is sitting up in bed just having finished breakfast. He denies any dyspnea or discomfort. Lungs diffusely diminished breath sounds no rhonchi he has some end expiratory wheezes Heart regular rate and rhythm Nontender nondistended normal bowel sounds Lower extremities no peripheral cyanosis or edema Objective Last Vital Signs Temp 36.9 C 09/11/21 08:11 Pulse 93 H 09/11/21 08:11 Resp 15 09/11/21 08:11 BP 135/62 09/11/21 08:11 Pulse Ox 91 L 09/11/21 08:11 Laboratory Results - last 24 hr 09/10/21 12:11 Hgb 8.5 L Hct 28.8 L Reviewed Pertinent PMH: Yes
--- NOTE | 2021-09-11 10:40 | NUR.NOTE ---
RN applies bilateral SCD's.Nursing Note:
[2021-09-11 10:41] LABS: Abs Immature Grans 0.22 10^3/uL (0.0-0.06); Absolute Basophil Count 0.01 10^3/uL (0.0-0.2); Absolute Eosinophil Count 0.09 10^3/uL (0.0-0.7); Absolute Monocyte Count 0.86 10^3/uL (0.1-0.8); Basophils % 0.1; Eosinophils % 0.7; HCT 29.9 % (40.0-50.0); HGB 8.6 g/dL (13.5-17.5); Immature Grans % 1.6; Lymphocytes % 5.4; MCH 26.6 pg (27.0-33.0); MCHC 28.8 % (32.0-36.0); MCV 93 fL (80-95); MPV 9.9 fL (8.0-11.0); Monocytes % 6.4; Neutrophils % 85.8; Platelet Count 238 10^3/uL (130-400); RBC 3.23 10^6/uL (4.36-5.78); RDW-SD 52.2 fL
[2021-09-11] MEDS: Furosemide 20 MG/2 ML VIAL IVP (10:43)
[2021-09-11 10:44] LABS: Absolute Lymphocyte Count 0.72 10^3/uL (1.2-3.4)
[2021-09-11] MEDS: Normal Saline Flush 10 ML SYR IVP (10:45)
--- NOTE | 2021-09-11 10:53 | NUR.NOTE ---
RN starts patient back on BIPAP at FI02 of 30%. pressure of 10, peep of 5. Respiratory therapist is called to evaluate patient who is sating 85% on BIPAP. RN gives patient 20mg of Furosemide IVP.Nursing Note:
--- NOTE | 2021-09-11 10:56 | NUR.NOTE ---
Respiratory therapist increases FI02 to 50%. Patient now sating 97%. RN decreased FI02 to 45%.Nursing Note:
--- NOTE | 2021-09-11 10:58 | NUR.NOTE ---
RN decreased BIPAP FI02 to 40%. Patient is sating 94%.Nursing Note:
[2021-09-11 11:00] LABS: Anion Gap -1.1 mmol/L (3-11); BUN 21 mg/dL (7-18); CO2 36.1 mmol/L (21.0-32.0); CREATININE 0.6 mg/dL (0.70-1.30); Calcium 7.9 mg/dL (8.5-10.1); Chloride 101 mmol/L (98-107); Glucose 108 mg/dL (74-106); Sodium 136 mmol/L (136-145)
--- NOTE | 2021-09-11 11:44 | PT.INTREAT ---
PT Notes Visit Reasons: Respiratory Failure Inpatient Physical Therapy Treatment Note [facility] Date: 09/11/21 SUBJECTIVE: Carlos is very pleasant and agreeable to PT. He had some concerns with his breathing and requested that an ambulance be placed on stand by. Nursing reports O2 sats quite low this am. Pt on Bi PAP machine, but came off to work with me. OBJECTIVE: [] PAIN: no complaints. BED MOBILITY/TRANSFERS Rolling L/R:I Supine-sit: CGA Sit-supine: CGA Sit-stand:CGA Stand-sit: CGA GAIT Assistive Device: FWW Weight bearing: FWB Assist:SBA Distance: marched in place x 1 min Deviation: 6L of O2 VITALS: O2 sats began at 86%, increased to 95% during ex, then dropped again once lying down ranging btwn 86-89% THEREX: general bed ex in supine and sitting, including ankle pumps, hip flex (heel slides and seated march) and abd, LAQ, as well as shld flex and H. abd. ASSESSMENT: tolerated session quite well. Episodes of confusion noted, as he kept asking for daughter to be called to take him to the doctors or hospital. He was easily redirected. C/o SOB immediately after transferring to EOB, but this subside and felt well enough to stand. PLAN: will continue to work on strength and endurance to improve his mobility. Will look to ambulate greater distances tomorrow. TREATMENT CODE/TIME: 25 min beginning at 1120. [id number], [id number].
[2021-09-11] MEDS: Ipratropium 0.5 MG/2.5 ML UPD VIAL IH ×2 (11:50→15:05)
--- NOTE | 2021-09-11 13:44 | NUR.NOTE ---
RN applies BIPAP at 15/5 and FI02 of 35%. Patient is sating 92%.Nursing Note:
--- NOTE | 2021-09-11 13:48 | NUR.NOTE ---
Transfer orders are acknowledged. Fats And Oils Loader, Med/Surg and Access are all aware of transfer orders. Patient boosted in bed.Nursing Note:
--- NOTE | 2021-09-11 15:04 | NUR.NOTE ---
Patient boosted in bed.Nursing Note:
[2021-09-11 17:01] LABS: BE (Venous) 13 mmol/L (-2-3); HCO3 (Venous) 39 mmol/L (23-28); O2 Sat (Venous) 98 %; TCO2 (Venous) 37 mmol/L (24-29); pH (Venous) 7.32 (7.31-7.41); pO2 (Venous) 89 mmHg
[2021-09-11 17:04] LABS: pCO2 (Venous) 76 mmHg (41-51)
[2021-09-12] VITALS (121 sets, daily range): BP systolic 69–181; BP diastolic 42–85; PULSE 57–110; RESP 5–29; TEMP 36.3–37.1; O2SAT 91–100
[2021-09-12] MEDS: Normal Saline Flush 10 ML SYR IVP ×2 (01:20→15:21)
[2021-09-12] MEDS: QUEtiapine 25 MG TAB PO (02:04)
[2021-09-12 06:24] LABS: Absolute Basophil Count 0.01 10^3/uL (0.0-0.2); Absolute Eosinophil Count 0.05 10^3/uL (0.0-0.7); Absolute Monocyte Count 0.81 10^3/uL (0.1-0.8); Absolute Neutrophil Count 5.89 10^3/uL (1.2-6.7); Basophils % 0.1; Eosinophils % 0.6; HCT 22.7 % (40.0-50.0); Immature Grans % 1.3; Lymphocytes % 11.6; MCH 26.9 pg (27.0-33.0); MCHC 29.1 % (32.0-36.0); MCV 93 fL (80-95); MPV 9.8 fL (8.0-11.0); Monocytes % 10.4; Platelet Count 132 10^3/uL (130-400); RBC 2.45 10^6/uL (4.36-5.78); RDW 16.3 % (11.8-14.1); RDW-SD 54.2 fL; WBC 7.76 10^3/uL (4.4-10.8)
[2021-09-12 06:34] LABS: Anion Gap 0.6 mmol/L (3-11); BUN 20 mg/dL (7-18); CO2 35.4 mmol/L (21.0-32.0); CREATININE 0.4 mg/dL (0.70-1.30); Calcium 6.9 mg/dL (8.5-10.1); Chloride 105 mmol/L (98-107); Glucose 68 mg/dL (74-106); Sodium 141 mmol/L (136-145)
[2021-09-12 06:43] LABS: HGB 6.6 g/dL (13.5-17.5)
--- NOTE | 2021-09-12 07:00 | NUR.NOTE ---
Patient not doing well. Patient pulling at BIPAP mask. Hemoglobin is 6.6. Dr. Bell is aware of Hemoglobin and will speak to hospitalist about an infusion of packed red blood cells. FI02 is increased to 40%. Patient more comfortable on same. Respiratory therapist arrives and confirms that an increase in FI02 TO 40% is appropriate. Daughter, is expected in within the hour to speak to MD who today is Dr. Marx.Nursing Note:
[2021-09-12] MEDS: Ipratropium 0.5 MG/2.5 ML UPD VIAL IH ×4 (07:08→18:30)
[2021-09-12 07:33] LABS: HCO3 (Venous) 37 mmol/L (23-28); pCO2 (Venous) 33 mmHg (41-51); pO2 (Venous) 108 mmHg
[2021-09-12 07:37] LABS: BE (Venous) > 15 mmol/L (-2-3); O2 Sat (Venous) > 99 %
[2021-09-12 07:38] LABS: pH (Venous) 7.66 (7.31-7.41)
--- NOTE | 2021-09-12 07:41 | NUR.NOTE ---
Respiratory therapist questions pH OF 7.66, CO2 of 33 and HCO3 37. Respiratory therapist does not believe values and will seek an order for ABG.Nursing Note:
--- NOTE | 2021-09-12 07:46 | NUR.NOTE ---
RN speaks to Apolinar, the Supply Chain Analyst to see if Midline can be placed. Supply Chain Analyst will work on getting the midline placed stat.Nursing Note:
--- NOTE | 2021-09-12 07:47 | NUR.NOTE ---
Respiratory therapist sits with patient's daughterTerrie in room to discuss patient's condition.Nursing Note:
--- NOTE | 2021-09-12 07:59 | NUR.NOTE ---
Anesthesiologist speaks in person with Dr. Marx about placement of central line rather than a midline. Anesthesiologist will await call from Dr. Marx on plan for patient. Anesthesiologist believes IJ placement would be easy but that midline placement may be problematic because of patient may not be compliant with procedure.
--- NOTE | 2021-09-12 08:16 | NUR.NOTE ---
Dr. Marx completes discussion with patient and daughter, patient will be intubated and will get a central line.Nursing Note:
--- NOTE | 2021-09-12 09:15 | DI.RAD_ITS ---
Exam(s) XR PORTABLE CHEST AP EXAM: XR PORTABLE CHEST AP CLINICAL HISTORY: post intubation tube position TECHNIQUE: 2D digital imaging was performed of the chest. One image was obtained. An AP view was ob tained. COMPARISON: CR,XR XR PORTABLE CHEST AP from 09/04/2021 FINDINGS: MEDIASTINUM: Normal. HEART: Normal. PULMONARY VASCULATURE: Normal. LUNGS: The lung burns appears stable compared to the prior examination. PLEURAL SPACE: Stable left pleural effusion. No pneumothorax. BONE:Within normal limits for the patient's age. OTHER FINDINGS:The tip of the endotracheal tube is in good position 4 cm above the mariela. The nasog astric tube passes into the stomach. There also appears to be a left IJ catheter. The tip appears i n good position in the superior vena cava. IMPRESSION: 1. ET and NG tubes are in good position. 2. There also appears to be a left IJ catheter in good position. DATA REPOSITORY: RADIATION DOSE DELIVERED:
--- NOTE | 2021-09-12 09:20 | W.PM.PROGNOT ---
Date of Service Date of service: 09/12/21 Time of Service: 08:20 Assessment and Plan Assessment and plan (1) Acute on chronic respiratory failure with hypoxia and hypercapnia: Status: Acute Assessment and plan: I had a discussion w/ his daughter Terrie who is his DPOA, she indicated that she had a discussion w/ her father since the beginning of this hospitalization regarding intubation and resuscitation and she indicates to me that he still wants intubation if needed. I have explained to Terrie that we have tried to maximize his respiratory care in a non-invasive way and he is now at the point of needing intubation and also needs a central line for venous access as he needs blood d/t severe anemia from GI bleeding. She has consented to intubation and placement of triple lumen central venous line. I have called Gaudencio Peres CRNA who is technology applications consultant and he is present in the ICU at this time and he also had a discussion w/ the patient's daughter. I have explained to Terrie that her father will likely need referral to tertiary center for tracheostomy and a PEG tube as he will likely need usp ventilator. Critical care time spent interviewing and examining the patient, reviewing studies, discussing case with patient's nurse and consulting physicians was 60 minutes (2) GI bleeding: Status: Chronic Assessment and plan: Nursing reports no further melena nor any hematochezia. He is on a PPI and carafate but his Hb dropped overnight to 6.[address] Bell ordered 2 units of PRBC to be given but this is pending placement of CVP. (3) Deep vein thrombosis, upper right extremity: Status: Acute Assessment and plan: In light of his recent GI bleeding and further drop in his Hb, Apixaban has not been restarted. (4) COPD (chronic obstructive pulmonary disease): Assessment and plan: cont. supportive care w/ mech vent and bronchodilators. (5) Elevated troponin I level: Status: Acute Assessment and plan: Secondary to type II demand ischemia from his hypoxemia. Repeat troponin came back down to normal yesterday. Echocardiogram showed preserved LV function with an EF 55% no wall motion abnormalities. However he does have a dilated right ventricle that is mildly diffusely hypocontractile. He has moderate mitral regurgitation and mild to moderate tricuspid regurgitation with moderate pulmonary hypertension. RVSP 54 mm (6) Anemia: Status: Chronic Assessment and plan: Apparently has some GI source of his anemia given his melanotic stool last night and drop in his hemoglobin. I have added Carafate and doubled up the dose of his Protonix. Apixaban discontinued (7) Pleural effusion: Status: Acute Assessment and plan: stable bilateral effusions along w/ subjacent infiltrates on most recent CT scan of the chest. clinically he is not acting like a pneumonia i.e. no fevers nor sputum production. He was on azithromycin which was continued on admission. I will continue for 5 days then stop. If he developes fevers or rising WBC or elevated procalcitonin then consider HCAP and then I would broaden antibiotics coverage. (8) DVT prophylaxis: Status: Acute Assessment and plan: SCD. (9) Discharge planning issues: Status: Acute Assessment and plan: patient will likely need transfer to tertiary care center for prolonged vent management Subjective Subjective Interval history since last seen: Patient's had progressive worsening of his acute on chronic respiratory failure. He has become obtunded with increased myoclonus. This in spite of being put on BiPAP at 20/5 and 35% FiO2. Exam Narrative Exam Narrative: With vigorous tactile stimulation patient will open his eyes but not follow commands. He has a lot of myoclonic twitching. Respirations are tachypneic with accessory respiratory muscle use. Lungs with diffusely diminished breath sounds Heart is regular but tachycardic Abdomen is soft slightly distended with active bowel sounds Bilateral arm edema R>L; lower extremities w/out edema Neuro: moves all 4's to tactile stimulation and also voluntarily (pulling at covers, and his BIPAP mask) Objective Last Vital Signs Temp 36.5 C 09/12/21 07:12 Pulse 84 09/12/21 07:12 Resp 17 09/12/21 07:12 BP 120/65 09/12/21 07:12 Pulse Ox 99 09/12/21 07:12 Laboratory Results - last 24 hr 09/11/21 09/11/21 09/11/21 10:15 10:15 16:53 WBC 13.40 H RBC 3.23 L Hgb 8.6 L Hct 29.9 L MCV 93 MCH 26.6 L MCHC 28.8 L D RDW 16.0 H Plt Count 238 MPV 9.9 Immature Gran % 1.6 Neutrophils % 85.8 Lymphocytes % 5.4 Monocytes % 6.4 Eosinophils % 0.7 Basophils % 0.1 Nucleated RBC % 0.0 Absolute Neutrophils 11.50 H Absolute Lymphocytes 0.72 L Absolute Monocytes 0.86 H Absolute Eosinophils 0.09 Absolute Basophils 0.01 VBG pH 7.32 VBG pCO2 76 H* VBG pO2 89 VBG HCO3 39 H VBG Total CO2 37 H VBG O2 Saturation 98 VBG Base Excess 13 H Sodium 136 Potassium 5.0 Chloride 101 Carbon Dioxide 36.1 H Anion Gap -1.1 L BUN 21 H Creatinine 0.6 L Estimated GFR/1.73 m2 >= 60.00 Glucose 108 H Calcium 7.9 L 09/12/21 09/12/21 09/12/21 05:28 05:28 07:25 WBC 7.76 RBC 2.45 L Hgb 6.6 L* D Hct 22.7 L MCV 93 MCH 26.9 L MCHC 29.1 L RDW 16.3 H Plt Count 132 MPV 9.8 Immature Gran % 1.3 Neutrophils % 76.0 Lymphocytes % 11.6 Monocytes % 10.4 Eosinophils % 0.6 Basophils % 0.1 Nucleated RBC % 0.0 Absolute Neutrophils 5.89 Absolute Lymphocytes 0.90 L Absolute Monocytes 0.81 H Absolute Eosinophils 0.05 Absolute Basophils 0.01 VBG pH 7.66 H* VBG pCO2 33 L VBG pO2 108 VBG HCO3 37 H VBG Total CO2 VBG O2 Saturation > 99 VBG Base Excess > 15 H Sodium 141 Potassium 5.0 Chloride 105 Carbon Dioxide 35.4 H Anion Gap 0.6 L BUN 20 H Creatinine 0.4 L Estimated GFR/1.73 m2 >= 60.00 Glucose 68 L Calcium 6.9 L
--- NOTE | 2021-09-12 09:20 | W.PM.OP ---
Date of service: 09/12/21 Time of Service: 08:20 Operative Note Operative Note DATE OF PROCEDURE: 09/12/21 PRE-OP DIAGNOSIS: Poor IV access in the setting of acute on chronic respiratory failure requiring intubation PROCEDURE: Left internal jugular venous cannulation using an Arrow 7 Kinyarwanda 3 lm 20 cm catheter. SURGEON: Ruddy Marx Refer to Anesthesia Record Procedure Description: After obtaining written informed consent from the patient's daughter as the patient was too obtunded from hypercarbia to give his own consent the left IJ was evaluated with a SonoSite PX linear probe to assess patency of his left internal jugular vein. He had good compression along the entire length of the vein from the angle of his mandible to the supraclavicular space. Using the materials found in an Arrow 7 Kinyarwanda 3 lm 20 cm catheter kit complete ERG pack, the area over the left internal jugular vein was prepped in a sterile fashion and using sterile covers and wearing a sterile gown and gloves the skin over the left IJ was anesthetized using 5 mL of 1% Xylocaine. Attempt was made at an oblique approach as the carotid was visualized medial and posterior to the IJ. Under ultrasound guidance the catheter over needle 18-gauge by 2-1/2 inch radiopaque catheter over 20-gauge RW introducer needle was used. Needle was seen to pass into the IJ however tip of the needle visualization was lost and carotid was inadvertently punctured but quickly recognized and the needle was withdrawn. Pressure was applied over the site and procedure was aborted. Gaudencio Smith CRNA was present during the procedure and took over completion of the procedur
--- NOTE | 2021-09-12 09:55 | DI.VRAD_ITS ---
PROCEDURE INFORMATION: Exam: XR Chest Exam date and time: 09/12/2021 9:31 AM Age: 76 years old Clinical indication: Other: Post intubation tube position TECHNIQUE: Imaging protocol: XR of the chest. Views: 1 view. COMPARISON: XR PORTABLE CHEST AP 09/04/2021 6:37 PM FINDINGS: Tubes, catheters and devices: Endotracheal tube and orogastric tube are appropriate. Lungs: Persistent atelectatic change in the lower lung bilaterally. Pleural spaces: Small volume left-sided pleural effusion. Heart/Mediastinum: Unremarkable. No cardiomegaly. Bones/joints: Unremarkable. IMPRESSION: Support devices are appropriate. Dictated and Authenticated by: Hu Flores MD. Ordering:[facility] Araseli Fox MD
[2021-09-12 10:06] LABS: HCO3 40 mmol/L (22-26); pCO2 56 mmHg (35-45); pH 7.47 (7.35-7.45); pO2 128 mmHg (80-105)
--- NOTE | 2021-09-12 10:06 | W.ANESVAS ---
Central Venous Line Placement Date Performed: 09/12/21 Procedure Time: 08:48 Procedure Location: Intensive Care Unit Requesting Provider: Ruddy Marx Standard Monitors Applied: ECG, Blood Pressure, SpO2 and ETCO2 Pt. Position: Supine Timeout Performed: Yes Sedation Given (Indicate Dose Given): No Sedation given Patient Mental Status: Other Sterility: Hand Hygiene, Surgical Cap, Surgical Mask, Sterile Gloves, Sterile Drape/Sheet, Sterile Gown, Eye Protection and Chlorhexidine Laterality: Left Insertion Site: Internal Jugular (IJ) Central Line Type: Triple Lumen Catheter Insertion Procedure: 1% Lidocaine to skin and subcutaneous tissue with 25g needle, Vessel accessed with catheter over needle, catheter advanced, Guidewire placed with ease, Extension tubing fills with blood, then empties easily with gravity, Dermatotomy (skin dominga) made with scalpel, Dilator placed without resistance, Guidewire removed and Claves placed, blood withdrawn, ports flushed and clamped Dressing: Tegaderm Applied and BioPatch Catheter Depth at Skin (cm): 15 Placement Confirmation: Confirmation X-Ray Ordered Ultrasound: Sterile probe cover and gel used (on ICU US machine. ) Ultrasound Image Saved?: No Number of Attempts (See previous attempts in note section): 1 Procedure Tolerated: No Complications Procedure Outcome: Successful Procedure Comment: Asked to assist in TLC placement in progress. Left IJ was already prepped. left IJ was accessed in a posterior oblique fashion and catheter advanced without issues under US into the IJ, manometry drains easily with gravity. Performed By: Gaudencio Peres
[2021-09-12 10:11] LABS: sO2 > 99 % (95-98)
--- NOTE | 2021-09-12 10:11 | W.ANESAIR ---
Airway Management Note Procedure Date and Time DO NOT use this note for patients in the OR, Use Intraop Record Instead Date Performed: 09/12/21 Procedure Time: Procedure Location Procedure Location: Intensive Care Unit Requesting Provider: Ruddy Marx Number of Previous Intubation attempts by other providers: 0 Procedure Type Procedure Type: Urgent Pre-Induction Setup Sterility: Hand Hygiene, Surgical Cap and Surgical Mask Preinduction Setup: Standard monitors applied, BVM at bedside, Suction ready, Airway equipment ready, Medications ready, IV/IO access patent & flowing and Post induction medications ready Induction Induction Time: :20 Induction setup: Pt. evaluated prior to induction, Head of Bed Elevated, BiPAP/CPAP, Ear to Sternal Notch and Rapid Sequence Induction Induction Medications (Indicate Dose Given): Ketamine IV Dose:: 40 mg, Propofol IV Dose:: 40 mg, Propofol (mcg/kg/min) Dose:: 75 mcg/kg/min, Rocuronium IV Dose:: 100 mg, Norepinephrine Dose:: 8 mcg and Norepinephrine (mcg/kg/min) Dose:: 0.08 mcg/kg/min Mask Ventilation: Easy Airway Device Airway Type: Intubation Laryngoscopy: Edentulous Airway Grade: 1 Airway Blades: Glidescope 3 Endotracheal Tube: 8.0mm ETT Depth Where Secured (cm): 24 Placement Confirmation: Cuff inflated with minimally occlusive pressure, Secured with commercial device and ETCO2 waveform present Number of Attempts (See previous attempts in note section): 1 Post Induction Management Post Induction Medications (Indicate Dose Given): Managed by Requesting Provider Gastric Tube Gastric Tube: Placed by Anesthesia Gastric Tube Placement: Oral Tube Size (Fr): 18 Depth Secured (cm): 0 Procedure Complications Procedure Complications: None Procedure Outcome Procedure Outcome: Successful Procedure Comment: OGT not secured. See ICU documentation for accurate time of induction. Post induction MAP <60, 8 mcg NE given and gtt increased to 0.1 mcg/kg/min Proceduralist Performed By: Gaudencio Peres
[2021-09-12 10:12] LABS: FIO2 35 %; Site Right Radial
[2021-09-12 10:17] LABS: BE > 15 mmol/L (-2-3)
[2021-09-12] MEDS: Lidocaine 2% Jelly 11 ML SYR (10:17)
[2021-09-12] MEDS: PROPOFOL 1,000 MG/100 ML BTL 26.5 MG IVPB (10:21)
[2021-09-12] MEDS: Normal Saline 250 ML 1000 ML IV (10:51)
--- NOTE | 2021-09-12 10:58 | NUR.NOTE ---
At 09:00 intubation team is assembled including Gaudencio Sauceda, Anesthesiologist, Adams, the respiratory therapist and both ICU nurses. At 9:24 team took a time out and then patient was intubated without incident. 40mg of Propofol was given at 09:26, as well as 40MG Ketamine IVP. Patient was started on a Propofol drip at 75mcg/kg/in and 100mg of Rocuronium was given IVP. Norepinephrine was started at 0.08mcg/kg at 09:28l A bolus of 8mcg of Norepinephrine was given IVP AT 089:30. Prior to commencement of intubation, a triple lumen IJ central line was place at 09:15. Oral gastric tube was placed at 09:32. Chest x-ray to confirm placement of ET tube and OG tube was performed at 09:45. 16 [place] vivas was placed at 10:00.
--- NOTE | 2021-09-12 11:02 | PT.INNT ---
PT Notes Visit Reasons: Respiratory Failure held PT as pt is intubated.
[2021-09-12] MEDS: Normal Saline 250 ML IV (11:34)
[2021-09-12] MEDS: PROPOFOL 1,000 MG/100 ML BTL 22.1 MG IVPB ×2 (12:03→20:36)
[2021-09-12] MEDS: Triamcinolone 0.1% CR 15 GM TUBE TP (12:43)
--- NOTE | 2021-09-12 12:44 | NUR.NOTE ---
Patient has begun infusion of first unit of packed red blood cells.Nursing Note:
--- NOTE | 2021-09-12 13:17 | NUR.NOTE ---
SpO2 100% FIO2 on ventilator turned down to 30% RT made aware, pt tolerating well VSS, family at bedside
--- NOTE | 2021-09-12 14:24 | NUR.NOTE ---
Nursing Note: ET tube is 22cm at the teeth.
--- NOTE | 2021-09-12 15:03 | NUR.NOTE ---
First unit of PRBC has fully infused. Patient to receive one more unit of PRBC.Nursing Note:
[2021-09-12] MEDS: PROPOFOL 1,000 MG/100 ML BTL 75 MG (15:35)
[2021-09-12] MEDS: PROPOFOL 1,000 MG/100 ML BTL 24.3 MG IVPB (16:46)
[2021-09-12] MEDS: Sucralfate 1 GM TAB PO (17:09)
--- NOTE | 2021-09-12 18:03 | SCONE_ITS ---
Date of service: 09/12/21 Time of Service: 18:23 Assessment and Plan Assessment and plan (1) GI bleeding: Status: Chronic Assessment and plan: -Patient has had no further episodes of hematochezia or melena, remains intubated, sedated and on low dose norepinephrine in the ICU -Continue to transfuse PRN and maintain Hb >7 -Repeat calcium/albumin in AM in light of blood transfusions; corrected calcium 7.5 based on admission albumiun level -Grim prognosis given severity of COPD and current clinical status -Oral anticoagulant being held due to possible GI bleed; monitor RUE for worsening edema, at risk for compartment syndrome if clot propagates -Possible transfer to tertiary care center -No plan for emergency EGD at this time (2) Palliative care patient: Status: Acute (3) Anemia: Status: Chronic (4) Elevated troponin I level: Status: Acute (5) Acute on chronic respiratory failure with hypoxia and hypercapnia: Status: Acute (6) Deep vein thrombosis, upper right extremity: Status: Acute History of Present Illness Narrative: 76 year old male admitted for acute exacerbation of COPD who unfortunately continued to decompensate and required intubation today. Patient was found to have an acute drop in his hemoglobin this morning and was noted to have a black bowel movement 48hrs ago. Due to concern for GI bleed I was asked to see the patient for possible EGD. Patient has been having normal bowel movements since the dark stool was noted. He did have hemolyzed blood in his urine and if the stool specimen was sent from a mixed specimen this could be a false negative hemeoccult. He recieved 2 units of PRBC today and is due for repeat labs at 8pm. He remains intubated and on low dose norepinephrine in the ICU. RN stated patient was confused and non-compliant with BiPAP, but nonetheless had no abdominal or gastrointestinal complaints. I attempted to call the patient's daughter and POA to discuss details but was only able to speak to his . She is very understanding of his prognosis and feels the patient does not currently have much quality of life. Patient has an advanced directive that is currently being followed. Consults Consult date: 09/12/21 Requesting physician: Ruddy Marx Review of Systems Unobtainable due to endotracheal tube PFSH All Active Problems (Updated 09/10/21 @ 09:34 by Ruddy Marx) GI bleeding (Chronic) Palliative care patient (Acute) Pleural effusion (Acute) Anemia (Chronic) Elevated troponin I level (Acute) Acute on chronic respiratory failure with hypoxia and hypercapnia (Acute) DVT prophylaxis (Acute) Discharge planning issues (Acute) Deep vein thrombosis, upper right extremity (Acute) Medical History COPD (chronic obstructive pulmonary disease) HTN (hypertension) Prostate cancer Surgical History No significant past surgical history Social History Smoking/Tobacco Use Status: Former Tobacco Use Smoking risk assessment performed?: Yes Alcohol Intake: current Substance use type: does not use Do you feel safe at home: Yes Do you feel safe in your relationship?: Yes Exam Const Nutritional Appearance: average body habitus Other: intubated and sedated [facility] Head: normal to inspection Cardio Rate: regular rate Rhythm: regular rhythm GI Inspection: non-distended and no obesity Palpation: soft, not firm, no hernias, no masses and nontender Skin General skin exam: ecchymosis (scattered) and scars (bilateral upper extremities) Extrem General: edema (upper extremity; has known DVT) Laterality: right Results Last Vital Signs Temp 98.8 F 09/12/21 17:25 Pulse 65 09/12/21 17:31 Resp 18 09/12/21 17:31 BP 89/48 L 09/12/21 17:31 Pulse Ox 99 09/12/21 17:31 Labs Result diagrams: 09/12/21 05:28 09/12/21 05:28 Labs: Laboratory Results - last 24 hr 09/09/21 09/12/21 09/12/21 23:50 05:28 05:28 WBC 7.76 RBC 2.45 L Hgb 6.6 L* D Hct 22.7 L MCV 93 MCH 26.9 L MCHC 29.1 L RDW 16.3 H Plt Count 132 MPV 9.8 Immature Gran % 1.3 Neutrophils % 76.0 Lymphocytes % 11.6 Monocytes % 10.4 Eosinophils % 0.6 Basophils % 0.1 Nucleated RBC % 0.0 Absolute Neutrophils 5.89 Absolute Lymphocytes 0.90 L Absolute Monocytes 0.81 H Absolute Eosinophils 0.05 Absolute Basophils 0.01 ABG Sample Site ABG pH ABG pCO2 ABG pO2 ABG HCO3 ABG Total CO2 ABG O2 Saturation ABG Base Excess VBG pH VBG pCO2 VBG pO2 VBG HCO3 VBG Total CO2 VBG O2 Saturation VBG Base Excess FiO2 Sodium 141 Potassium 5.0 Chloride 105 Carbon Dioxide 35.4 H Anion Gap 0.6 L BUN 20 H Creatinine 0.4 L Estimated GFR/1.73 m2 >= 60.00 Glucose 68 L Calcium 6.9 L Patient ABO/Rh B Positive Antibody Screen NEGATIVE Crossmatch See Detail 09/12/21 09/12/21 09/12/21 07:25 10:10 15:39 WBC RBC Hgb Hct MCV MCH MCHC RDW Plt Count MPV Immature Gran % Neutrophils % Lymphocytes % Monocytes % Eosinophils % Basophils % Nucleated RBC % Absolute Neutrophils Absolute Lymphocytes Absolute Monocytes Absolute Eosinophils Absolute Basophils ABG Sample Site Right Radial ABG pH 7.47 H ABG pCO2 56 H ABG pO2 128 H ABG HCO3 40 H ABG Total CO2 ABG O2 Saturation > 99 H ABG Base Excess > 15 H VBG pH 7.66 H* VBG pCO2 33 L VBG pO2 108 VBG HCO3 37 H VBG Total CO2 VBG O2 Saturation > 99 VBG Base Excess > 15 H FiO2 35 Sodium Potassium Chloride Carbon Dioxide Anion Gap BUN Creatinine Estimated GFR/1.73 m2 Glucose Calcium Patient ABO/Rh Antibody Screen Crossmatch See Detail 09/12/21 16:00 WBC RBC Hgb Cancelled Hct Cancelled MCV MCH MCHC RDW Plt Count MPV Immature Gran % Neutrophils % Lymphocytes % Monocytes % Eosinophils % Basophils % Nucleated RBC % Absolute Neutrophils Absolute Lymphocytes Absolute Monocytes Absolute Eosinophils Absolute Basophils ABG Sample Site ABG pH ABG pCO2 ABG pO2 ABG HCO3 ABG Total CO2 ABG O2 Saturation ABG Base Excess VBG pH VBG pCO2 VBG pO2 VBG HCO3 VBG Total CO2 VBG O2 Saturation VBG Base Excess FiO2 Sodium Potassium Chloride Carbon Dioxide Anion Gap BUN Creatinine Estimated GFR/1.73 m2 Glucose Calcium Patient ABO/Rh Antibody Screen Crossmatch
[2021-09-12] MEDS: Budesonide/Formoterol 160/4.5 6 GM 60 PUFF INH IH (18:31)
[2021-09-12 20:11] LABS: HCT 31.2 % (40.0-50.0); HGB 9.9 g/dL (13.5-17.5)
[2021-09-12] MEDS: Pantoprazole 40 MG VIAL IVP (22:49)
[2021-09-13] VITALS (92 sets, daily range): BP systolic 91–162; BP diastolic 42–100; PULSE 61–99; RESP 1–22; TEMP 36.6–36.9; TEMPC 37; O2SAT 85–100; BMI 27.2
--- NOTE | 2021-09-13 | DI.US_ITS ---
Exam(s) US EXTREMITY VENOUS BI EXAM: US EXTREMITY VENOUS BI CLINICAL HISTORY: concern for DVT. TECHNIQUE: Bilateral lower extremity venous ultrasound performed using grayscale, color-flow, and sp ectral Doppler analysis. COMPARISON: No exams were available for comparison FINDINGS: The bilateral common femoral, femoral and popliteal veins demonstrate normal compressibility, augment ation, and color Doppler. The posterior tibial veins are patent. IMPRESSION: Right: Negative for DVT Left: Negative for DVT DATA REPOSITORY:
[2021-09-13] MEDS: PROPOFOL 1,000 MG/100 ML BTL 22.1 MG IVPB (01:15)
[2021-09-13] MEDS: Triamcinolone 0.1% CR 15 GM TUBE TP ×3 (01:20→19:02)
[2021-09-13] MEDS: Normal Saline Flush 10 ML SYR IVP ×4 (05:11→22:55)
[2021-09-13] MEDS: PROPOFOL 1,000 MG/100 ML BTL 22.099 MG IVPB (06:00)
[2021-09-13 06:39] LABS: ALT 13 U/L (16-63); AST 13 U/L (15-37); Albumin 2.2 g/dL (3.4-5.0); Alkaline Phosphatase 65 U/L (46-116); BUN 17 mg/dL (7-18); Bilirubin, Total 0.6 mg/dL (0.2-1.0); CREATININE 0.6 mg/dL (0.70-1.30); Calcium 7.7 mg/dL (8.5-10.1); Chloride 101 mmol/L (98-107); Glucose 72 mg/dL (74-106); Potassium 3.5 mmol/L (3.5-5.1); Sodium 141 mmol/L (136-145); Total Protein 4.6 g/dL (6.4-8.2)
[2021-09-13 06:56] LABS: Procalcitonin < 0.1 ng/mL
[2021-09-13 07:47] LABS: BE 13 mmol/L (-2-3); HCO3 36 mmol/L (22-26); pCO2 42 mmHg (35-45); pH 7.54 (7.35-7.45); pO2 85 mmHg (80-105); sO2 98 % (95-98); tCO2 33 mmol/L (23-27)
[2021-09-13 07:50] LABS: FIO2 30 %; Site Left Radial
[2021-09-13 07:54] LABS: Abs Immature Grans 0.12 10^3/uL (0.0-0.06); Absolute Basophil Count 0.01 10^3/uL (0.0-0.2); Absolute Eosinophil Count 0.06 10^3/uL (0.0-0.7); Absolute Lymphocyte Count 0.94 10^3/uL (1.2-3.4); Absolute Monocyte Count 1.09 10^3/uL (0.1-0.8); Basophils % 0.1; Eosinophils % 0.5; HCT 31.4 % (40.0-50.0); HGB 9.9 g/dL (13.5-17.5); Immature Grans % 1.1; Lymphocytes % 8.4; MCH 27.5 pg (27.0-33.0); MCHC 31.5 % (32.0-36.0); MCV 87 fL (80-95); Monocytes % 9.7; Neutrophils % 80.2; Platelet Count 222 10^3/uL (130-400); RDW 16.7 % (11.8-14.1); RDW-SD 51.5 fL; WBC 11.22 10^3/uL (4.4-10.8)
--- NOTE | 2021-09-13 08:30 | DI.RAD_ITS ---
Exam(s) XR PORTABLE CHEST AP EXAM: XR PORTABLE CHEST AP CLINICAL HISTORY: acute on chronic RF, intubated on [facility]. vent TECHNIQUE: 2D digital imaging was performed. COMPARISON: CR,XR XR PORTABLE CHEST AP from 09/04/[address] CHEST PE CTA from 09/06/[address] CHEST PE CTA from 09/09/2021 CR,XR XR PORTABLE CHEST AP from 09/12/2021 FINDINGS: Endotracheal tube and nasogastric tube unchanged. No change in position right internal jugular cath eter. Emphysematous changes. Multiple leads overlie the chest which somewhat obscures the left alvarez g base. Stable small left pleural effusion. Stable adjacent left lower lobe infiltrate versus atele ctasis. IMPRESSION: Stable appearance of the chest. DATA REPOSITORY: RADIATION DOSE DELIVERED:
--- NOTE | 2021-09-13 08:54 | PGE_ITS ---
Date of Service Date of service: 09/13/21 Time of Service: 08:40 Assessment and Plan Assessment and plan (1) Acute on chronic respiratory failure with hypoxia and hypercapnia: Status: Acute Assessment and plan: Did relatively well with the spontaneous breathing trial - but we might have to address his anxiety on the actual extubation attempt. We are not extubating today because of the possibility of the EGD - waiting to have this clarified. OHS/JAKOB/COPD likely etiology. Does have pulmonary hypertension to support long- standing nature of his issues. Normally on 4L of O2 by NC. It is not 100% clear if the patient failed BiPAP - We are trying to find out what the issue with the [facility] was (device problem, mask fit problem, etc) - and there are arrangements already being made to try to arrange him for an avaps machine. Continue daily sedation vacations, CXRs, ABG in am. Plan to extubate tomorrow. (2) GI bleeding: Status: Acute Assessment and plan: While on apixaban for a RUE DVT. s/p 3 units pRBCS on this admission, apixaban on hold. Await surgical plans re possible EGD. H/H stable. Continue protonix, carafate. (3) Anemia associated with acute blood loss: Status: Acute Assessment and plan: s/p 3 units pRBCS - as above (4) Deep vein thrombosis, upper right extremity: Status: Acute Assessment and plan: Chemical tx on hold due to anemia. Awaiting plans for EGD prior to resuming anticoagulation. (5) Elevated troponin I level: Status: Acute Assessment and plan: Minimal troponin elevation in setting of acute on chronic hypoxic hypercapnic respiratory failure, suspected to be type 2 NSTEMI. Echo 09/07 with no wall motion abnormalities, LVEF of 55%, does have RVSP of 54 mmHg. (6) Discharge planning issues: Status: Acute Assessment and plan: Full code. Keep in ICU. Discussed with care management and RT. Total Critical Care Time 75 minutes. (7) DVT prophylaxis: Status: Acute Assessment and plan: Holding off on chemical DVT ppx or treatment until surgical plans clarified. Obtaining venous dopplers of BLEs today to ensure no DVT there as has SCDs ordered. Subjective Subjective Interval history since last seen: Mr Rodriguez is intubated, sedated with propofol. He is on a low dose of norepi - weaning down this morning. During sedation vacation/spontaneous weaning trial this morning, he was requiring the vent to initiate some of his breaths and got very anxious, but was able to follow commands and cooperate and nodded yes to my questions. s/p 2 units pRBCs last night. He had a heme negative BM yesterday (was heme + on Monday). Hgb stable from last night - 9.9. Awaiting clarification from surgery - EGD vs not. Exam Narrative Exam Narrative: General: Obese male who looks anxious, on the vent, awake, following commands (shakes my hand when I introduce myself, sits himself up in bed for lung exam, nods yes to when I ask him if he understands the plan) HEENT: EOMI, MMM, ET tube in place Heart: RRR, no m/r/g Lungs: Diminished breath sounds at B bases Abdomen: soft, nontender, nondistended Extremities: +2 RUE edema, +1 LLE edema, trace RLE edema, no c/c. In soft UE restraints. Objective Last Vital Signs Temp 36.6 C 09/13/21 06:00 Pulse 61 09/13/21 06:00 Resp 17 09/13/21 07:54 BP 137/70 09/13/21 07:54 Pulse Ox 92 09/13/21 07:54 Laboratory Results - last 24 hr 09/09/21 09/12/21 09/12/21 23:50 10:10 15:39 WBC RBC Hgb Hct MCV MCH MCHC RDW Plt Count MPV Immature Gran % Neutrophils % Lymphocytes % Monocytes % Eosinophils % Basophils % Nucleated RBC % Absolute Neutrophils Absolute Lymphocytes Absolute Monocytes Absolute Eosinophils Absolute Basophils ABG Sample Site Right Radial ABG pH 7.47 H ABG pCO2 56 H ABG pO2 128 H ABG HCO3 40 H ABG Total CO2 ABG O2 Saturation > 99 H ABG Base Excess > 15 H Oxygen Liter Flow FiO2 35 Sodium Potassium Chloride Carbon Dioxide Anion Gap BUN Creatinine Estimated GFR/1.73 m2 Glucose Calcium Total Bilirubin AST ALT Alkaline Phosphatase Total Protein Albumin Procalcitonin Patient ABO/Rh B Positive Cancelled Antibody Screen NEGATIVE Crossmatch See Detail See Detail 09/12/21 09/12/21 09/13/21 16:00 20:02 05:15 WBC RBC Hgb Cancelled 9.9 L D Hct Cancelled 31.2 L MCV MCH MCHC RDW Plt Count MPV Immature Gran % Neutrophils % Lymphocytes % Monocytes % Eosinophils % Basophils % Nucleated RBC % Absolute Neutrophils Absolute Lymphocytes Absolute Monocytes Absolute Eosinophils Absolute Basophils ABG Sample Site ABG pH ABG pCO2 ABG pO2 ABG HCO3 ABG Total CO2 ABG O2 Saturation ABG Base Excess Oxygen Liter Flow FiO2 Sodium 141 Potassium 3.5 D Chloride 101 Carbon Dioxide 37.0 H Anion Gap 3.0 BUN 17 Creatinine 0.6 L Estimated GFR/1.73 m2 >= 60.00 Glucose 72 L Calcium 7.7 L Total Bilirubin 0.6 AST 13 L ALT 13 L Alkaline Phosphatase 65 Total Protein 4.6 L Albumin 2.2 L Procalcitonin Patient ABO/Rh Antibody Screen Crossmatch 09/13/21 09/13/21 09/13/21 05:15 05:15 07:45 WBC 11.22 H RBC 3.60 L Hgb 9.9 L Hct 31.4 L MCV 87 D MCH 27.5 MCHC 31.5 L D RDW 16.7 H Plt Count 222 D MPV 10.0 Immature Gran % 1.1 Neutrophils % 80.2 Lymphocytes % 8.4 Monocytes % 9.7 Eosinophils % 0.5 Basophils % 0.1 Nucleated RBC % 0.0 Absolute Neutrophils 9.00 H Absolute Lymphocytes 0.94 L Absolute Monocytes 1.09 H Absolute Eosinophils 0.06 Absolute Basophils 0.01 ABG Sample Site Left Radial ABG pH 7.54 H ABG pCO2 42 ABG pO2 85 ABG HCO3 36 H ABG Total CO2 33 H ABG O2 Saturation 98 ABG Base Excess 13 H Oxygen Liter Flow VT430/R18/P5 FiO2 30 Sodium Potassium Chloride Carbon Dioxide Anion Gap BUN Creatinine Estimated GFR/1.73 m2 Glucose Calcium Total Bilirubin AST ALT Alkaline Phosphatase Total Protein Albumin Procalcitonin < 0.1 Patient ABO/Rh Antibody Screen Crossmatch Multi-Disciplinary Checklist Lines/Tubes CENTRAL LINE: yes, Central Line Day#: 1 Note: 09/12/21 ARTERIAL LINE: no RATLIFF: yes, [place] Day#: 1 Note: 09/12/21 ENDOTRACHEAL TUBE: yes, Endotracheal Tube Day#: 1 Sedation: yes, Sedation Vacation: yes Head of Bed@30 degrees: yes Spontaneous Breathing Trial: yes ICU Maintenance GLUCOSE 140-180mg/dL: no, Reason/Intervention: added d5 to fluids NUTRITION AT GOAL: no, Reason/Intervention: awaiting EGD, NPO PRESSURE ULCER: no RESTRAINTS: yes, Reviewed Necessity: Yes ANTIBIOTICS(if yes, consider Stewardship): No Social Issues FAMILY UPDATED: yes PT/OT: no, Reason/Intervention: intubated, sedated GOALS/DISPOSITION/APPLIANCES SAMPLE MAKER: yes CODE STATUS: Full Prophylaxis DVT PROPHYLAXIS: yes GI PROPHYLAXIS: yes, Indication: NPO and bleeding on this admission
[2021-09-13 09:00] LABS: BE 12 mmol/L (-2-3); HCO3 37 mmol/L (22-26); pCO2 59 mmHg (35-45); pH 7.41 (7.35-7.45); pO2 76 mmHg (80-105); sO2 95 % (95-98); tCO2 34 mmol/L (23-27)
[2021-09-13 09:03] LABS: FIO2 30 %; Site Left Radial
[2021-09-13] MEDS: Budesonide/Formoterol 160/4.5 6 GM 60 PUFF INH IH ×2 (09:19→19:03)
[2021-09-13] MEDS: Ipratropium 0.5 MG/2.5 ML UPD VIAL IH ×4 (10:17→19:02)
[2021-09-13] MEDS: Pantoprazole 40 MG VIAL IVP ×2 (11:12→22:55)
[2021-09-13] MEDS: PROPOFOL 1,000 MG/100 ML BTL 13.23 MG IVPB ×2 (11:23→17:44)
[2021-09-13 11:30] LABS: Bilirubin Negative (Negative); Blood Trace-intact (Negative); Clarity Clear (Clear); Glucose Negative (Negative); Ketones 15 mg/dL (Negative); Leukocyte Esterase Negative (Negative); Nitrite Negative (Negative); Specific Gravity 1.015 (1.005-1.025); Urobilinogen 0.2 EU/dL (Up TO 0.2); pH 8.5 (5-8)
--- NOTE | 2021-09-13 11:34 | CMPROGNOTE_ITS ---
- If Service Date Differs Date of service: 09/13/21 Time of Service: 11:34 Care Management Progress Note S/O: Carlos is currently intubated in the ICU. has consulted Surgical services for an EGD, which was performed today. CANDICE [place] [facility] [place]. He did meet with Palliative Care early this admission, and wished to be a full code. His , Lizzie, was visiting today, and shared concerns about his goals of care. CM will ask P alliative Care to visit with him again once he is extubated and can participate in the conversation. Per MD, he may be extubated tomorrow, if he tolerates a spontaneous breathing trial. CM will continue to follow. A: Carlos is a 76 year old male admitted to [facility] on 09/09/21 with respiratory failure. P: Carlos will likely go to SNF for continued short term rehab vs return home with his daughter. CM sent referrals for Carlos to go to an alternative SNF upon discharge. His transport will depend on disposition. He will follow up with his PCP and discharge plan of care. CM will continue to follow.
[2021-09-13 11:37] LABS: Bacteria Negative HPF (Negative); C & S Indicated? No; Casts Negative LPF (Negative); Crystals Negative HPF (Negative); Epithelial Cells Rare HPF (Negative); Mucus Trace (Negative); RBC 0-2 HPF (0-2); WBC Negative HPF (0-5)
[2021-09-13] MEDS: Albuterol 2.5 MG/3 ML INH SOLN VIAL UPD (13:45)
--- NOTE | 2021-09-13 13:50 | W.PM.PROGNOT ---
Date of Service Date of service: 09/13/21 Time of Service: 12:51 Assessment and Plan Assessment and plan (1) GI bleeding: Status: Acute Assessment and plan: -Patient has had no further episodes of hematochezia or melena, remains intubated, sedated -low dose norepi has been stopped -Hgb stable at 9.9 after 3 units of blood -Oral anticoagulant being held due to possible GI bleed; monitor RUE for worsening edema, at risk for compartment syndrome if clot propagates Long discussion with patient daughter (NADINE coleman regarding the reason for doing an EGD and the risks involved. Complications include but are not limited to bleeding, pain, perforation, ND, Stroke, . Her question were entertained and answered to her satisfaction and she wished to proceed with EGD. (2) Palliative care patient: Status: Acute (3) Anemia: Status: Chronic (4) Elevated troponin I level: Status: Acute (5) Acute on chronic respiratory failure with hypoxia and hypercapnia: Status: Acute (6) Deep vein thrombosis, upper right extremity: Status: Acute Subjective Subjective Interval history since last seen: Mr. Rodriguez is a 76 year old male with end stage COPD who was admitted with respitratory failure and intubated. He then developed acute anemia with blood in his stool. We were asked to see patient for EGD. Patient also has a new DVT and is on Eliquis at home. He did have an elevated Troponin this admission. Patient had 3 units of blood. His Hgb is now stable. His stool is now negative for blood. He is still intubated. The hospitalist feels that the EGD is medically indicated because of his need to be placed back on anticoagulation. Exam Const General: patient mechanically ventilated [facility] Head: normocephalic and atraumatic Resp Auscultation: clear to auscultation bilaterally Cardio Rate: regular rate Rhythm: regular rhythm Heart Sounds: no gallops, no murmurs and no rubs GI Palpation: soft, no hepatosplenomegaly and nontender Objective Last Vital Signs Temp 97.9 F 09/13/21 11:45 Pulse 88 09/13/21 13:46 Resp 17 09/13/21 13:46 BP 123/55 L 09/13/21 11:45 Pulse Ox 99 09/13/21 13:46 Laboratory Results - last 24 hr 09/09/21 09/12/21 09/12/21 23:50 15:39 16:00 WBC RBC Hgb Cancelled Hct Cancelled MCV MCH MCHC RDW Plt Count MPV Immature Gran % Neutrophils % Lymphocytes % Monocytes % Eosinophils % Basophils % Nucleated RBC % Absolute Neutrophils Absolute Lymphocytes Absolute Monocytes Absolute Eosinophils Absolute Basophils ABG Sample Site ABG pH ABG pCO2 ABG pO2 ABG HCO3 ABG Total CO2 ABG O2 Saturation ABG Base Excess Oxygen Liter Flow FiO2 Sodium Potassium Chloride Carbon Dioxide Anion Gap BUN Creatinine Estimated GFR/1.73 m2 Glucose Calcium Total Bilirubin AST ALT Alkaline Phosphatase Total Protein Albumin Procalcitonin Urine Color Urine Clarity Urine pH Ur Specific Aldrich Urine Protein Urine Ketones Urine Blood Urine Nitrite Urine Bilirubin Urine Urobilinogen Ur Leukocyte Esterase Urine RBC Urine WBC Ur Epithelial Cells Urine Crystals Urine Bacteria Urine Casts Urine Mucus Ur Culture Indicated? Urine Glucose Add-On Test Request Patient ABO/Rh B Positive Cancelled Antibody Screen NEGATIVE Crossmatch See Detail See Detail 09/12/21 09/13/21 09/13/21 20:02 05:15 05:15 WBC 11.22 H RBC 3.60 L Hgb 9.9 L D 9.9 L Hct 31.2 L 31.4 L MCV 87 D MCH 27.5 MCHC 31.5 L D RDW 16.7 H Plt Count 222 D MPV 10.0 Immature Gran % 1.1 Neutrophils % 80.2 Lymphocytes % 8.4 Monocytes % 9.7 Eosinophils % 0.5 Basophils % 0.1 Nucleated RBC % 0.0 Absolute Neutrophils 9.00 H Absolute Lymphocytes 0.94 L Absolute Monocytes 1.09 H Absolute Eosinophils 0.06 Absolute Basophils 0.01 ABG Sample Site ABG pH ABG pCO2 ABG pO2 ABG HCO3 ABG Total CO2 ABG O2 Saturation ABG Base Excess Oxygen Liter Flow FiO2 Sodium 141 Potassium 3.5 D Chloride 101 Carbon Dioxide 37.0 H Anion Gap 3.0 BUN 17 Creatinine 0.6 L Estimated GFR/1.73 m2 >= 60.00 Glucose 72 L Calcium 7.7 L Total Bilirubin 0.6 AST 13 L ALT 13 L Alkaline Phosphatase 65 Total Protein 4.6 L Albumin 2.2 L Procalcitonin Urine Color Urine Clarity Urine pH Ur Specific Aldrich Urine Protein Urine Ketones Urine Blood Urine Nitrite Urine Bilirubin Urine Urobilinogen Ur Leukocyte Esterase Urine RBC Urine WBC Ur Epithelial Cells Urine Crystals Urine Bacteria Urine Casts Urine Mucus Ur Culture Indicated? Urine Glucose Add-On Test Request Patient ABO/Rh Antibody Screen Crossmatch 09/13/21 09/13/21 09/13/21 05:15 06:12 07:45 WBC RBC Hgb Hct MCV MCH MCHC RDW Plt Count MPV Immature Gran % Neutrophils % Lymphocytes % Monocytes % Eosinophils % Basophils % Nucleated RBC % Absolute Neutrophils Absolute Lymphocytes Absolute Monocytes Absolute Eosinophils Absolute Basophils ABG Sample Site Left Radial ABG pH 7.54 H ABG pCO2 42 ABG pO2 85 ABG HCO3 36 H ABG Total CO2 33 H ABG O2 Saturation 98 ABG Base Excess 13 H Oxygen Liter Flow VT430/R18/P5 FiO2 30 Sodium Potassium Chloride Carbon Dioxide Anion Gap BUN Creatinine Estimated GFR/1.73 m2 Glucose Calcium Total Bilirubin AST ALT Alkaline Phosphatase Total Protein Albumin Procalcitonin < 0.1 Urine Color Urine Clarity Urine pH Ur Specific Aldrich Urine Protein Urine Ketones Urine Blood Urine Nitrite Urine Bilirubin Urine Urobilinogen Ur Leukocyte Esterase Urine RBC Urine WBC Ur Epithelial Cells Urine Crystals Urine Bacteria Urine Casts Urine Mucus Ur Culture Indicated? Urine Glucose Add-On Test Request TNP Patient ABO/Rh Antibody Screen Crossmatch 09/13/21 09/13/21 08:55 11:15 WBC RBC Hgb Hct MCV MCH MCHC RDW Plt Count MPV Immature Gran % Neutrophils % Lymphocytes % Monocytes % Eosinophils % Basophils % Nucleated RBC % Absolute Neutrophils Absolute Lymphocytes Absolute Monocytes Absolute Eosinophils Absolute Basophils ABG Sample Site Left Radial ABG pH 7.41 ABG pCO2 59 H ABG pO2 76 L ABG HCO3 37 H ABG Total CO2 34 H ABG O2 Saturation 95 ABG Base Excess 12 H Oxygen Liter Flow VT430/r18/p5 FiO2 30 Sodium Potassium Chloride Carbon Dioxide Anion Gap BUN Creatinine Estimated GFR/1.73 m2 Glucose Calcium Total Bilirubin AST ALT Alkaline Phosphatase Total Protein Albumin Procalcitonin Urine Color Yellow Urine Clarity Clear Urine pH 8.5 H Ur Specific Aldrich 1.015 Urine Protein Negative Urine Ketones 15 H Urine Blood Trace-intact H Urine Nitrite Negative Urine Bilirubin Negative Urine Urobilinogen 0.2 Ur Leukocyte Esterase Negative Urine RBC 0-2 Urine WBC Negative Ur Epithelial Cells Rare Urine Crystals Negative Urine Bacteria Negative Urine Casts Negative Urine Mucus Trace Ur Culture Indicated? No Urine Glucose Negative Add-On Test Request Patient ABO/Rh Antibody Screen Crossmatch
--- NOTE | 2021-09-13 14:22 | PT.INTREAT ---
Date of service: 09/13/21 Time of Service: 11:55 PT Notes Visit Reasons: Respiratory Failure Inpatient Physical Therapy Treatment Note [facility] Date: 09/13/2021 PRECAUTIONS: Intubated, Activity as tolerated SUBJECTIVE: Carlos nods yes when asked if he would like to attempt bed exercises for LE strengthening. He nods yes when asked if he was feeling good today. OBJECTIVE: PAIN: No indication of pain BED MOBILITY/TRANSFERS/GAIT: Held due to intubation and sedation THEREX: Patient was instructed in a LE strengthening and stabilization program, completed in a supine position, to include: ankle pumps, quad sets, glute sets, heels slides and hip abduction. ASSESSMENT: Patient tolerated session without complaint. His participation is limited by his being intubated as well as in wrist restraints and due to sedation. PLAN: Continue LE strengthening as tolerated and appropriate. TREATMENT CODE/TIME: 10 minutes; 20259 (11:55)
--- NOTE | 2021-09-13 14:42 | W.PM.ENDDOP ---
Date of service: 09/13/21 Time of Service: 13:42 Endoscopy Report DATE OF PROCEDURE: 09/13/21 PRE-OP DIAGNOSIS: GI Bleed POST-OP DIAGNOSIS: other (gastroesophageal ulcer, Chapin's) PROCEDURE: EGD SURGEON: Rylie King ANESTHESIA TYPE: General LMA/ETT ESTIMATED BLOOD LOSS: 0 PATHOLOGY: none sent COMPLICATIONS: None DISPOSITION: no change INDICATIONS: (1) GI bleeding: ?Status:?Acute ? ? ? Assessment and plan: -Patient has had no further episodes of hematochezia or melena, remains intubated, sedated -low dose norepi has been stopped -Hgb stable at 9.9 after 3 units of blood -Oral anticoagulant being held due to possible GI bleed; monitor RUE for worsening edema, at risk for compartment syndrome if clot propagates Long discussion with patient daughter (NADINE coleman regarding the reason for doing an EGD and the risks involved. Complications include but are not limited to bleeding, pain, perforation, IA, Stroke, .? Her question were entertained and answered to her satisfaction and she wished to proceed with EGD. 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 Monitors were applied and a time out was done. The patients name, date of , procedure type, allergies to medications and metal in their body was reviewed. The patient was sedated. he was already intubated. Once sedated and comfortable the gastroscope was advanced through the oropharynx which was grossly normal into the esophagus. The proximal and mid-esophagus were normal. In the distal esophagus there was inflammation noted. The scope was advanced into the stomach and through the pylorus into the 3rd portion of the duodenum. The duodenum was noted to be normal. The scope was retracted back into the stomach. There was mild inflammation of the stomach. There was an ulcer noted at the GE junction. The scope was retroflexed. The cardia and fundus were noted to be normal. There was no hiatal hernia noted. The scope was retracted back into the esophagus. The Z line was irregular. The GE junction was at 35 cm. The scope was removed and the patient was woken up and taken back to [facility] in stable condition. Follow up: as needed
--- NOTE | 2021-09-13 15:07 | W.ANESPOSTOP ---
Postoperative Evaluation Date, Time and Location Date Performed: 09/13/21 Time Performed: 15:07 Patient Location: Intensive Care Unit Vital Signs Most Recent Imported Vital Signs: Most Recent Vital Signs Temp Pulse Resp BP Pulse Ox 36.6 C 88 17 137/70 99 09/13/21 14:00 09/13/21 14:00 09/13/21 14:00 09/13/21 14:00 09/13/21 13:46 Most Recent Manually Entered Vital Signs: Adult Blood Pressure: 118/78 Heart Rate: 89 Respirations: 14 Oxygen Saturation (%): 100 Temperature (C): 37.0 C Pain Score (0-10 Scale): 0 Pain Score Most Recent Pain Score: Most Recent Pain Score Pain Level 0 09/13/21 11:45 Assessment Mental Status: Arousable with meaningful communication Airway and Respiratory Function: Patient has been admitted and is receiving care as an inpatient (Intubated and ventilated on same setting as before the procedure) Cardiovascular Function: Hemodynamically Stable Hydration Status: Adequately Hydrated Nausea & Vomiting: No Nausea or Vomiting Pain: Pt. Denies Any Pain Peripheral Nerve Block: Patient did not receive a nerve block Postoperative Comments:: No pressors started or currently being administered. Pt is hemodynamically stable with similar vital signs as before procedure. Pt. is awake and follows commands and denies pain, communicates through shaking and nodding head.Same ventilator settings as before procedure.
--- NOTE | 2021-09-13 15:15 | W.ANESPRE ---
General Info Date of Service Date Performed: 09/13/21 Height: 5 ft 8 in Weight: 81.2 kg Body Mass Index (BMI): 27.2 Surgical Procedure: Operation Date: 09/13/21 14:05 Proposed Procedure Side Surgeon p Gastroscopy Rylie King MD Actual Procedure Side Surgeon p Gastroscopy Not Applicable Rylie King MD Pre-Op Diagnosis Post-Op Diagnosis anemia anemia Meds Allergies and Home Medications Allergies Allergy/AdvReac Type Severity Reaction Status Date / Time prednisone AdvReac Intermediate Unverified 09/09/21 13:17 Calcium Channel Blocking AdvReac Unknown Unverified 09/08/21 22:44 Agent Dilt oxycodone AdvReac Unknown Unverified 09/08/21 22:44 [id number] Reductase AdvReac Unknown Unverified 09/08/21 22:44 Inhibitor sulfamethoxazole AdvReac Unknown Unverified 09/08/21 22:44 [From Bactrim] trimethoprim [From Bactrim] AdvReac Unknown Unverified 09/08/21 22:44 Home Medication Medication Instructions Recorded azithromycin 250 mg tablet 250 mg PO QAM 09/04/21 budesonide-formoterol HFA 160 2 puff inhalation BID 09/04/21 mcg-4.5 mcg/actuation aerosol inhaler calcipotriene 0.005 % scalp 1 applic topical DAILY 09/04/21 solution calcipotriene 0.005 % topical cream 1 applic topical DAILY 09/04/21 clobetasol 0.05 % topical ointment 1 applic topical BID 09/04/21 docusate sodium 100 mg capsule 100 mg PO BID 09/04/21 fluticasone propionate 50 2 spray intranasal BID 09/04/21 mcg/actuation nasal spray,suspension ipratropium bromide 0.02 % 0.5 mg inhalation QID 09/04/21 solution for inhalation ketoconazole 2 % shampoo 1 applic topical DIRECTED 09/04/21 losartan 100 mg tablet 100 mg PO DAILY 09/04/21 metoprolol succinate 25 mg 25 mg PO DAILY 09/04/21 tablet,extended release 24 hr pimecrolimus 1 % topical cream 1 applic topical BID PRN 09/04/21 tacrolimus 0.1 % topical ointment 1 applic topical BID 09/04/21 tiotropium bromide 2.5 2 puff inhalation DAILY 09/04/21 mcg/actuation mist for inhalation (Spiriva Respimat) triamcinolone acetonide 0.1 % 1 applic topical BID 09/04/21 topical cream apixaban 5 mg tablet (Eliquis) 5 mg PO BID #0 tabs 09/07/21 apixaban 5 mg tablet (Eliquis) 10 mg PO BID #0 tabs 09/07/21 prednisone 20 mg tablet 40 mg PO DAILY #0 tabs 09/07/21 bisacodyl 10 mg rectal suppository 10 mg DC DAILY PRN 09/08/21 (Dulcolax (bisacodyl)) Current Visit Medications: Current Medications Generic Name Dose Route Start Last Admin Trade Name Freq PRN Reason Stop Dose Admin Albuterol Sulfate 2.5 mg 09/13/21 11:22 09/13/21 13:45 Albuterol 2.5 Mg/3 Ml Inh Soln Vial UPD 2.5 mg Q2H PRN PRN Administration Bisacodyl 10 mg 09/13/21 08:00 Bisacodyl 10 Mg Supp DC DAILY PRN PRN Budesonide/Formoterol Fumarate 2 puff 09/09/21 08:30 09/13/21 09:19 Budesonide/Formoterol 160/4.5 6 Gm 60 Puff Inh IH 2 puffs BID ITA Administration Chlorhexidine Gluconate 0 ml 09/12/21 09:45 Chlorhexidine Gluconate 0.12% Mouthwash 118 Ml Btl MM DIRECTED ITA Device 1 each 09/09/21 05:00 Inhaler, Assist Device MC DIRECTED [facility] Dextrose/Water 0 gm 09/13/21 08:31 Dextrose 50%-Water 25 Gm/50 Ml Syr IVP DIRECTED PRN Dimethicone/Zinc Oxide 0 gm 09/09/21 03:56 Vinnie Protect Cream 142 Gm Tube TP PRN PRN Docusate Sodium 100 mg 09/09/21 08:30 09/13/21 01:19 Docusate Sodium 100 Mg Cap PO Not Given BID ITA Fentanyl 50 mcg 09/12/21 09:40 Fentanyl 100 Mcg/2 Ml Vial IVP Q1H PRN PRN Fluticasone Propionate 0 gm 09/09/21 08:30 09/13/21 11:13 Fluticasone Nasal [place] 16 Gm Btl NS Not Given BID ITA Propofol 1,000 mg in 100 mls @ 2.205 mls/hr 09/12/21 09:45 09/13/21 11:23 Diprivan IVPB 30 mcg/kg/min INFUSION ITA 13.23 mls/hr Administration Protocol 5 MCG/KG/MIN Norepinephrine Bitartrate 8 mg in 250 mls @ 6.891 mls/hr 09/12/21 11:30 09/13/21 08:59 IV 0 mcg/kg/min INFUSION ITA 0 mls/hr Titration Protocol 0.05 MCG/KG/MIN Potassium Cl/Dextrose/Lact Ringer's 1,000 mls @ 125 mls/hr 09/13/21 08:30 09/13/21 08:58 Kcl 20meq/D5lr IV 125 mls/hr INFUSION ITA Administration Ipratropium [place] 0.5 mg 09/09/21 08:30 09/13/21 13:45 Ipratropium 0.5 Mg/2.5 Ml Upd Vial IH 0.5 mg QID ITA Administration Losartan Potassium 100 mg 09/09/21 08:30 09/13/21 09:00 Losartan 50 Mg Tab PO Not Given DAILY [facility] Metoprolol Succinate 25 mg 09/09/21 08:30 09/13/21 09:01 Metoprolol Cr 25 Mg Tabcr PO Not Given DAILY [facility] Pantoprazole Sodium 40 mg 09/13/21 10:00 09/13/21 11:12 Pantoprazole 40 Mg Vial IVP 40 mg Q12H ITA Administration Sodium Chloride 0 ml 09/10/21 00:25 09/13/21 05:11 Normal Saline Flush 10 Ml Syr IVP 30 ml PRN PRN Administration Sucralfate 1 gm 09/10/21 11:30 09/12/21 17:09 Sucralfate 1 Gm Tab PO 1 gm AC & HS ITA Administration Sucralfate 1 gm 09/13/21 15:15 Sucralfate 1 Gm Tab PO Q6H [facility] Tiotropium [place] 2 puff 09/09/21 08:30 09/13/21 08:04 Tiotropium [place]-Respimat 10 Puff Inh IH Not Given DAILY [facility] Triamcinolone Acetonide 0 gm 09/09/21 08:30 09/13/21 09:01 Triamcinolone 0.1% Cr 15 Gm Tube TP 1 applic BID ITA Administration PFSH Active Problems Active Problems: Problem Status Onset Code Anemia associated with acute blood loss D62 GI bleeding K92.2 Palliative care patient Z51.5 Pleural effusion J90 Anemia D64.9 Elevated troponin I level R77.8 Acute on chronic respiratory failure with hypoxia and hypercapnia J96.21, J96.22 DVT prophylaxis Z29.9 Discharge planning issues Z02.9 Deep vein thrombosis, upper right extremity I82.621 Medical History Medical History COPD (chronic obstructive pulmonary disease) HTN (hypertension) Prostate cancer Surgical History Surgical History No significant past surgical history Tobacco Smoking/Tobacco Use Status: Former Tobacco Use Alcohol Alcohol Intake: current Substance Use Substance use type: does not use Vital Signs and Lab Results Vital Signs Most Recent Vital Signs in EMR: Most Recent Vital Signs Temp Pulse Resp BP Pulse Ox 36.6 C 88 17 137/70 99 09/13/21 14:00 09/13/21 14:00 09/13/21 14:00 09/13/21 14:00 09/13/21 13:46 Point of Care Results Point of Care Results: Finger Stick Blood Glucose 84 09/13/21 11:10 Lab Results Result Diagrams: 09/13/21 05:15 09/13/21 05:15 Blood Type / Crossmatch: Patient ABO/Rh B Positive 09/09/21 Antibody Screen NEGATIVE 09/09/21 Crossmatch See Detail 09/12/21 Complete Blood Count: White Blood Count 11.22 10^3/uL (4.4-10.8) H 09/13/21 05:15 Red Blood Count 3.60 10^6/uL (4.36-5.78) L 09/13/21 05:15 Hemoglobin 9.9 g/dL (13.5-17.5) L 09/13/21 05:15 Hematocrit 31.4 % (40.0-50.0) L 09/13/21 05:15 Platelet Count 222 10^3/uL (130-400) 09/13/21 05:15 Venous Blood Lactate 0.5 mmol/L (0.6-1.4) L 09/04/21 20:30 Complete Metabolic Panel: Sodium Level 141 mmol/L (136-145) 09/13/21 05:15 Potassium Level 3.5 mmol/L (3.5-5.1) 09/13/21 05:15 Chloride Level 101 mmol/L (98-107) 09/13/21 05:15 Carbon Dioxide Level 37.0 mmol/L (21.0-32.0) H 09/13/21 05:15 Blood Urea Nitrogen 17 mg/dL (7-18) 09/13/21 05:15 Creatinine 0.6 mg/dL (0.70-1.30) L 09/13/21 05:15 Estimated GFR/1.73 m2 >= 60.00 (mL/min/1.73m2) 09/13/21 05:15 Magnesium Level 2.0 mg/dL (1.8-2.4) 09/06/21 06:15 Calcium Level 7.7 mg/dL (8.5-10.1) L 09/13/21 05:15 Albumin 2.2 g/dL (3.4-5.0) L 09/13/21 05:15 Glucose Level 72 mg/dL (74-106) L 09/13/21 05:15 Liver Function Panel: Alanine Aminotransferase (ALT/SGPT) 13 U/L (16-63) L 09/13/21 05:15 Aspartate Amino Transf (AST/SGOT) 13 U/L (15-37) L 09/13/21 05:15 Coagulation Panel: INR International Normalized Ratio 1.2 (0.9-1.1) H 09/08/21 23:45 Prothrombin Time 11.6 sec (9.3-11.0) H 09/08/21 23:45 Activated Partial Thromboplast Time 25.4 sec (21.0-27.5) 09/08/21 23:45 D-Dimer 1042 ng/mlFEU (<500) H 09/04/21 18:10 Cardiac Panel: Troponin I 58 ng/L (<or=60) 09/09/21 [id number] Natriuretic Peptide 1316 pg/mL (<300) H 09/08/21 Arterial Blood Gas: Arterial Blood Gas Sample Site Left Radial 09/13/21 08:55 Arterial Blood pH 7.41 (7.35-7.45) 09/13/21 08:55 Arterial Blood pO2 76 mmHg (80-105) L 09/13/21 08:55 Arterial Blood pCO2 59 mmHg (35-45) H 09/13/21 08:55 Arterial Blood Oxygen Saturation 95 % (95-98) 09/13/21 08:55 Arterial Blood HCO3 37 mmol/L (22-26) H 09/13/21 08:55 Arterial Blood Base Excess 12 mmol/L (-2-3) H 09/13/21 08:55 Arterial Blood Total CO2 34 mmol/L (23-27) H 09/13/21 08:55 Venous Blood Gas: Venous Blood pH 7.66 (7.31-7.41) H* 09/12/21 07:25 Venous Blood Partial Pressure O2 108 mmHg 09/12/21 07:25 Venous Blood Partial Pressure CO2 33 mmHg (41-51) L 09/12/21 07:25 Venous Blood Oxygen Saturation > 99 % 09/12/21 07:25 Venous Blood HCO3 37 mmol/L (23-28) H 09/12/21 07:25 Venous Blood Base Excess > 15 mmol/L (-2-3) H 09/12/21 07:25 Venous Blood Total Carbon Dioxide mmol/L (24-29) 09/12/21 07:25 Pancreas Panel: No Data to Display Thyroid Panel: No Data to Display Infectious Disease: Coronavirus (COVID-19)(PCR) Negative (Negative) 09/08/21 23:45 Coronavirus 2019 Source Nasopharynx 09/08/21 23:45 Influenza Virus Type A (PCR) Negative (Negative) 09/08/21 23:45 Influenza Virus Type B (PCR) Negative (Negative) 09/08/21 23:45 Respiratory Syncytial Virus (PCR) Negative (Negative) 09/08/21 23:45 Blood Cultures: No Data to Display Toxicology Panel: No Data to Display Anesthesia Assessment and Plan Anesthesia History Personal History: No History of Anesthesia Complications Family History: No Family History of Anesthesia Complications Exercise Tolerance Exercise Tolerance: Metabolic Equivalents>4 Pertinent Negatives Pertinent Negatives: No Symptoms of GERD, No Major Cardiovascular Symptoms or Complaints (Ischemic demand AL Hx) and No Major Pulmonary Symptoms or Complaints (Currently intubated on AC rate 14 at 30% FiO2 rarely breathing over vent ETCO2 typically runs 45) Cardiac & Pulmonary Exam Cardiac Exam: Normal S1/S2 Heart Sounds Pulmonary Exam: Rhonchi Present and Rales Present Implantable Cardiac Device Does patient have a Pacemaker or an ICD?: No Airway Exam Known Difficult Airway: No Mallampati Class: Unable to Assess Mouth Opening: Normal (> 3cm) Thyromental Distance: Greater than 3 cm Facial Hair: Full [place]ck Range of Motion: Full ROM and Unable to Assess Neck Circumference: Thick Teeth Condition: Unable to Assess ASA Classification ASA Score: ASA 3 Emergency Case?: No NPO Status NPO Status: NPO Clears >2 hours, Solids >8 hours Anesthesia Plan Resuscitation Status: Full Code Anesthesia Technique: General Anesthesia Airway Planned: Endotracheal Tube (Prexisting) Monitors Used: Standard Monitors Preoperative Comments:: ICU pt. intubated on settings listed above, tolerates ETT quite well, follows commands, is cooperative and communicates with head nods and shaking. Weaned off of Levophed this AM. EGD to rule out UGI bleed prior to restarting Eloquis for UE DVT.
[2021-09-13] MEDS: fentaNYL 100 MCG/2 ML VIAL 50 MCG IVP (18:18)
--- NOTE | 2021-09-13 18:50 | INDS_ITS ---
Date of service: 09/13/21 PT Notes Visit Reasons: Respiratory Failure Physical Therapy Inpatient Discharge Summary Date: 09/13/2021 Dates of Service: 09/09/2021 through 09/13/2021 This is a clinical summary of care provided for the duration of dates listed above. No charge was made in the completion of this documentation. Referring Doctor: Sylvester Oneill PT Orders: PT CONSULT: Eval/Treat Precautions: Fall. Standard. Activity as tolerated. Patient Profile/Admitting Diagnosis:? Carlos is a 76-year-old male who presented to the ED on 09/08/2021 from the [facility] rehab due to acute respiratory distress and hypoxia. PMHX: All Active Problems?(Updated 09/09/21 @ 05:52 by Sylvester Oneill) DVT prophylaxis (Acute) Discharge planning issues (Acute) Hypoxic episode (Acute) Deep vein thrombosis, upper right extremity (Acute) NSTEMI (non-ST elevated myocardial infarction) (Acute) Acute respiratory failure with hypoxia and hypercarbia (Acute) Acute respiratory distress (Acute) Acute exacerbation of chronic obstructive pulmonary disease (Acute) Medical History COPD (chronic obstructive pulmonary disease) HTN (hypertension) Prostate cancer Surgical History No significant past surgical history Social History/Home Situation: Carlos previously lived alone in a private home with 2 steps to enter however patient states that once he goes home from SNF he will be headed back to his daughter's house with 4 steps to enter with rails on both sides.? Daughter and daughter's family will be providing all the care that he needs as he recovers at their house.? Ambulatory inside his house without an assistive device although he states that he has been doing a lot of holding onto furnitures because of a c hronic balance issue. Equipment Owned/DME: None Subjective: NT. See most recent CLIENT CARE MANAGER notes. . Objective: General Observation: NT. See most recent CLIENT CARE MANAGER notes. Pain: NT. See most recent CLIENT CARE MANAGER notes. Vital Signs: NT. See most recent CLIENT CARE MANAGER notes. ROM: Right Upper Extremity: ? Shoulder Flexion WFL. Shoulder abduction WFL. Elbow flexion WFL. Wrist flexion WFL. Functional opening and closing of hand WFL. Left Upper Extremity:? Shoulder Flexion WFL. Shoulder abduction WFL. Elbow flexion WFL. Wrist flexion WFL. Functional opening and closing of hand WFL. Right Lower Extremity: Hip flexion WFL. Hip abduction WFL. Knee flexion WFL. Ankle dorsiflexion WFL. Ankle plantarflexion WFL. Left Lower Extremity: Hip flexion WFL. Hip abduction WFL. Knee flexion WFL. Ankle dorsiflexion WFL. Ankle plantarflexion WFL. Strength: Right Upper Extremity: Shoulder flexors 4-/5. Shoulder abductors 4-/5. Elbow flexors 4/5. Elbow extensors 4-/5. Wireline Field Operator strong. Left Upper Extremity: Shoulder flexors 4-/5. Shoulder abductors 4-/5. Elbow flexors 4/5. Elbow extensors 4-/5. Wireline Field Operator strong. Right Lower Extremity: Hip flexors 4-/5. Hip abductors 4-/5. Knee flexors 5/5. Knee extensors 4-/5. Ankle dorsiflexors 4-/5. Ankle plantarflexors 4/5. Left Lower Extremity: Hip flexors 4-/5. Hip abductors 4-/5. Knee flexors 5/5. Knee extensors 4-/5. Ankle dorsiflexors 4-/5. Ankle plantarflexors 4/5. Bed Mobility/Transfers: Supine to sit with standby assist and minimal difficulty. Able to sit up bedside for 5 minutes prior to fatigue and asks to get back into bed. Sit to stand tries without success. Refused further trials due to fatigue Gait: Not assessed at todays session Balance: Static Sitting: Normal Dynamic Sitting: Normal Static Standing: Not assessed Dynamic Standing: Not assessed Assessment: Carlos demonstrates functional mobility decline requiring the use of front- wheeled walker and the assistance of 1 caregiver for all mobility ADL performance.? Patient presents with clinical signs and symptoms consistent with c urrent/admitting diagnoses that have resulted to mobility limitations, gait instability, generalized weakness, and overall ADL decline as demonstrated by the following impairment level findings: 1.? Decreased strength to B UE LE major muscle groups 2.? Impaired standing balance 3.? Impaired activity tolerance 4.? Shortness of breath on exertion Impairments are contributing to the following functional limitations: 1.? Decline in bed mobility skills 2.? Decline in transfer skills 3.? Difficulty with ambulation without assistive device and physical assistance 4.? Increased completion time for mobility ADL performance 5.? Increased risk for falls 6.? Difficulty with managing steps alone safely Goals: Goals X1 week 1. Supine-Sit independent 2. Sit-Supine independent 3. Sit-Stand independent 4. Stand-Sit independent with FWW 5. Bed-Chair independent with FWW 6. Chair-Bed independent with FWW 7. Independent gait on level surface with use of least restrictive assistive device as needed for at least 50 feet without report of pain nor dyspnea 8. Independent stair negotiation while holding onto B rails for at least 5 steps without report of pain nor dyspnea 9. Good static and dynamic standing balance/tolerance DISCHARGE RECOMMENDATIONS: ??? SNF for continued rehabilitation.? Return to SNF when medically cleared by hospitalist. Recommend use of FWW for all ambulation TREATMENT CODE/TIME: NC Thank you for the opportunity to participate in the care of this patient. Gali Rivera PT, DPT, CLT [facility] [place], [place]
[2021-09-13 19:03] LABS: PTT Activated 26.3 sec (21.0-27.5)
[2021-09-13] MEDS: Fluticasone NASAL SPRAY 16 GM BTL NS (19:09)
[2021-09-14] VITALS (32 sets, daily range): BP systolic 101–171; BP diastolic 44–113; PULSE 67–143; RESP 1–34; TEMP 36.9–37.2; O2SAT 91–99
[2021-09-14] MEDS: PROPOFOL 1,000 MG/100 ML BTL 14.112 MG IVPB (01:00)
[2021-09-14] MEDS: Normal Saline Flush 10 ML SYR IVP ×4 (01:08→11:57)
[2021-09-14 02:08] LABS: PTT Activated > 155.0 sec (21.0-27.5)
[2021-09-14] MEDS: fentaNYL 100 MCG/2 ML VIAL 50 MCG IVP (06:19)
[2021-09-14 06:45] LABS: Abs Immature Grans 0.04 10^3/uL (0.0-0.06); Absolute Basophil Count 0.01 10^3/uL (0.0-0.2); Absolute Lymphocyte Count 0.72 10^3/uL (1.2-3.4); Absolute Monocyte Count 0.78 10^3/uL (0.1-0.8); Absolute Neutrophil Count 5.42 10^3/uL (1.2-6.7); Basophils % 0.1; Eosinophils % 1.4; HCT 30.9 % (40.0-50.0); HGB 9.5 g/dL (13.5-17.5); Immature Grans % 0.6; Lymphocytes % 10.2; MCH 27.2 pg (27.0-33.0); MCHC 30.7 % (32.0-36.0); MCV 89 fL (80-95); MPV 9.7 fL (8.0-11.0); Neutrophils % 76.7; Platelet Count 166 10^3/uL (130-400); RBC 3.49 10^6/uL (4.36-5.78); RDW 16.7 % (11.8-14.1); RDW-SD 53.2 fL; WBC 7.07 10^3/uL (4.4-10.8)
[2021-09-14] MEDS: PROPOFOL 1,000 MG/100 ML BTL 11.025 MG IVPB (06:54)
[2021-09-14 06:59] LABS: ALT 12 U/L (16-63); AST 13 U/L (15-37); Albumin 1.9 g/dL (3.4-5.0); Alkaline Phosphatase 61 U/L (46-116); Anion Gap -0.9 mmol/L (3-11); BUN 11 mg/dL (7-18); Bilirubin, Direct 0.1 mg/dL (0.0-0.2); Bilirubin, Total 0.3 mg/dL (0.2-1.0); CO2 36.9 mmol/L (21.0-32.0); CREATININE 0.6 mg/dL (0.70-1.30); Calcium 7.5 mg/dL (8.5-10.1); Chloride 106 mmol/L (98-107); Glucose 137 mg/dL (74-106); Magnesium 1.9 mg/dL (1.8-2.4); Potassium 3.6 mmol/L (3.5-5.1); Sodium 142 mmol/L (136-145); Total Protein 4.3 g/dL (6.4-8.2)
[2021-09-14 07:34] LABS: BE 12 mmol/L (-2-3); HCO3 36 mmol/L (22-26); pCO2 55 mmHg (35-45); pH 7.43 (7.35-7.45); pO2 71 mmHg (80-105); sO2 95 % (95-98); tCO2 34 mmol/L (23-27)
[2021-09-14 07:38] LABS: Site Left Radial
[2021-09-14 07:39] LABS: FIO2 30 %
[2021-09-14] MEDS: Budesonide/Formoterol 160/4.5 6 GM 60 PUFF INH IH ×2 (08:00→20:07)
[2021-09-14] MEDS: Ipratropium 0.5 MG/2.5 ML UPD VIAL IH ×3 (08:06→20:08)
--- NOTE | 2021-09-14 08:18 | PGE_ITS ---
Date of Service Date of service: 09/14/21 Time of Service: 07:20 Assessment and Plan Assessment and plan (1) Acute on chronic respiratory failure with hypoxia and hypercapnia: Status: Acute Assessment and plan: Undergoing spontaneous breathing trial this morning with plans to extubate to BiPAP. OHS/JAKOB/COPD likely etiology. Does have pulmonary hypertension to support long-s tanding nature of his issues. Normally on 4L of O2 by NC. It is not 100% clear if the patient failed BiPAP at the care home - we are researching this. Arrangements already being made for an avaps machine. ABG 1 hr after extubation while on BiPAP. (2) GI bleeding: Status: Resolved Assessment and plan: Had an ulcer at GE junction by EGD on 09/13/21 - healing, not actively bleeding. Tolerating heparin gtt without re-bleeding. If tolerates extubation, would do a speech eval this afternoon with plans for a clear liquid diet this evening.s/p 3 units pRBCS on this admission, apixaban on hold. H/H stable. Continue protonix, carafate. (3) Anemia associated with acute blood loss: Status: Acute Assessment and plan: s/p 3 units pRBCS - as above H/H stable x 48 hrs. (4) Deep vein thrombosis, upper right extremity: Status: Acute Assessment and plan: Tolerating heparin gtt since last night. If no rebleeding x 48 hrs, can switch back to a DOAC. (5) Elevated troponin I level: Status: Acute Assessment and plan: Minimal troponin elevation in setting of acute on chronic hypoxic hypercapnic respiratory failure, suspected to be type 2 NSTEMI. Echo 09/07 with no wall motion abnormalities, LVEF of 55%, does have RVSP of 54 mmHg. I do not anticipate further ischemic workup on this admission. (6) Discharge planning issues: Status: Acute Assessment and plan: Full code. Keep in ICU. Discussed with RT. Total Critical Care Time 45 minutes. (7) DVT prophylaxis: Status: Acute Assessment and plan: Therapeutic heparin gtt D/c SCDS. Subjective Subjective Interval history since last seen: Mr Rodriguez had an EGD yesterday - a healing ulcer seen at [facility]. Ok to trial heparin gtt per general surgery - tolerated without bleeding overnight. Not requiring pressors overnight. No acute events overnight. Spontaneous weaning trial this am with plans to extubate and transition to BiPAP. The patient is awake this morning. Reports no discomfort or pain. He is on board with getting extubating this morning. Following commands. Exam Narrative Exam Narrative: General: Obese male who wakes up easily, answers questions, following commands (propofol still on board at time of exam). HEENT: EOMI, MMM, ET tube in place Heart: RRR, no m/r/g Lungs: CTAB Abdomen: soft, nontender, nondistended Extremities: +2 RUE edema, trace BLE edema, no c/c. In soft UE restraints. Objective Last Vital Signs Temp 37.0 C 09/14/21 05:07 Pulse 87 09/14/21 08:06 Resp 14 09/14/21 08:06 BP 110/50 L 09/14/21 06:00 Pulse Ox 97 09/14/21 08:06 Laboratory Results - last 24 hr 09/13/21 09/13/21 09/13/21 06:12 08:55 11:15 WBC RBC Hgb Hct MCV MCH MCHC RDW Plt Count MPV Immature Gran % Neutrophils % Lymphocytes % Monocytes % Eosinophils % Basophils % Nucleated RBC % Absolute Neutrophils Absolute Lymphocytes Absolute Monocytes Absolute Eosinophils Absolute Basophils APTT ABG Sample Site Left Radial ABG pH 7.41 ABG pCO2 59 H ABG pO2 76 L ABG HCO3 37 H ABG Total CO2 34 H ABG O2 Saturation 95 ABG Base Excess 12 H Oxygen Liter Flow [id number] FiO2 30 Sodium Potassium Chloride Carbon Dioxide Anion Gap BUN Creatinine Estimated GFR/1.73 m2 Glucose Calcium Magnesium Total Bilirubin Conjugated Bilirubin AST ALT Alkaline Phosphatase Total Protein Albumin Urine Color Yellow Urine Clarity Clear Urine pH 8.5 H Ur Specific [place] 1.015 Urine Protein Negative Urine Ketones 15 H Urine Blood Trace-intact H Urine Nitrite Negative Urine Bilirubin Negative Urine Urobilinogen 0.2 Ur Leukocyte Esterase Negative Urine RBC 0-2 Urine WBC Negative Ur Epithelial Cells Rare Urine Crystals Negative Urine Bacteria Negative Urine Casts Negative Urine Mucus Trace Ur Culture Indicated? No Urine Glucose Negative Add-On Test Request TNP 09/13/21 09/14/21 09/14/21 18:35 01:11 05:30 WBC RBC Hgb Hct MCV MCH MCHC RDW Plt Count MPV Immature Gran % Neutrophils % Lymphocytes % Monocytes % Eosinophils % Basophils % Nucleated RBC % Absolute Neutrophils Absolute Lymphocytes Absolute Monocytes Absolute Eosinophils Absolute Basophils APTT 26.3 > 155.0 H* ABG Sample Site ABG pH ABG pCO2 ABG pO2 ABG HCO3 ABG Total CO2 ABG O2 Saturation ABG Base Excess Oxygen Liter Flow FiO2 Sodium 142 Potassium 3.6 Chloride 106 Carbon Dioxide 36.9 H Anion Gap -0.9 L BUN 11 Creatinine 0.6 L Estimated GFR/1.73 m2 >= 60.00 Glucose 137 H Calcium 7.5 L Magnesium 1.9 Total Bilirubin 0.3 Conjugated Bilirubin 0.1 AST 13 L ALT 12 L Alkaline Phosphatase 61 Total Protein 4.3 L Albumin 1.9 L Urine Color Urine Clarity Urine pH Ur Specific [place] Urine Protein Urine Ketones Urine Blood Urine Nitrite Urine Bilirubin Urine Urobilinogen Ur Leukocyte Esterase Urine RBC Urine WBC Ur Epithelial Cells Urine Crystals Urine Bacteria Urine Casts Urine Mucus Ur Culture Indicated? Urine Glucose Add-On Test Request 09/14/21 09/14/21 05:30 07:25 WBC 7.07 RBC 3.49 L Hgb 9.5 L Hct 30.9 L MCV 89 MCH 27.2 MCHC 30.7 L D RDW 16.7 H Plt Count 166 MPV 9.7 Immature Gran % 0.6 Neutrophils % 76.7 Lymphocytes % 10.2 Monocytes % 11.0 Eosinophils % 1.4 Basophils % 0.1 Nucleated RBC % 0.0 Absolute Neutrophils 5.42 Absolute Lymphocytes 0.72 L Absolute Monocytes 0.78 Absolute Eosinophils 0.10 Absolute Basophils 0.01 APTT ABG Sample Site Left Radial ABG pH 7.43 ABG pCO2 55 H ABG pO2 71 L ABG HCO3 36 H ABG Total CO2 34 H ABG O2 Saturation 95 ABG Base Excess 12 H Oxygen Liter Flow [id number] FiO2 30 Sodium Potassium Chloride Carbon Dioxide Anion Gap BUN Creatinine Estimated GFR/1.73 m2 Glucose Calcium Magnesium Total Bilirubin Conjugated Bilirubin AST ALT Alkaline Phosphatase Total Protein Albumin Urine Color Urine Clarity Urine pH Ur Specific [place] Urine Protein Urine Ketones Urine Blood Urine Nitrite Urine Bilirubin Urine Urobilinogen Ur Leukocyte Esterase Urine RBC Urine WBC Ur Epithelial Cells Urine Crystals Urine Bacteria Urine Casts Urine Mucus Ur Culture Indicated? Urine Glucose Add-On Test Request Multi-Disciplinary Checklist Lines/Tubes CENTRAL LINE: yes, Central Line Day#: 2 Note: inserted 09/12/21 ARTERIAL LINE: no RATLIFF: yes, [place] Day#: 2 Note: 09/12/21 ENDOTRACHEAL TUBE: yes, Endotracheal Tube Day#: 2 Sedation: yes, Sedation Vacation: yes Head of Bed@30 degrees: yes Spontaneous Breathing Trial: yes ICU Maintenance GLUCOSE 140-180mg/dL: yes NUTRITION AT GOAL: no, Reason/Intervention: NPO for extubation PRESSURE ULCER: no RESTRAINTS: yes, Reviewed Necessity: Yes ANTIBIOTICS(if yes, consider Stewardship): No Social Issues FAMILY UPDATED: yes PT/OT: no, Reason/Intervention: Not appropriate until extubation GOALS/DISPOSITION/STORAGE CENTER MANAGER: yes CODE STATUS: Full (Palliative care saw patient; advanced directive on chart) Prophylaxis DVT PROPHYLAXIS: yes GI PROPHYLAXIS: yes, Indication: actually had GI bleeding on this admission
--- NOTE | 2021-09-14 08:30 | DI.RAD_ITS ---
Exam(s) XR PORTABLE CHEST AP EXAM: XR PORTABLE CHEST AP CLINICAL HISTORY: f/u intubated patient TECHNIQUE: COMPARISON: CT CT CHEST PE CTA from 09/09/2021 CR XR PORTABLE CHEST AP from 09/13/2021 FINDINGS: Semi upright chest film was obtained. Note is again made of an endotracheal tube, unchanged in posit ion from yesterday's examination. Cardiac size is within normal limits. Pleural radiodensities are noted at the left lung base, as seen on prior chest CT of September 09. Lungs are predominantly clear as visualized except for some streaky radiodensities in the lung bases, grossly unchanged from yesterda y's examination. IMPRESSION: Stable appearance of chest since yesterday's examination. RADIATION DOSE DELIVERED: Total DLP
--- NOTE | 2021-09-14 10:15 | CMPROGNOTE_ITS ---
- If Service Date Differs Date of service: 09/14/21 Time of Service: 10:15 Care Management Progress Note S/O: Carlos was extubated today, and shortly after the MD was called to evaluate for re intubation. MD discussed this with Carlos, providing him with all possible options, and Carlos decided to change his code status to DNR/DNI, and to be transitioned to comfort measures. He remained on bipap until his two daughters arrived, at which point he was transitioned to nasal canula, for comfort. He was sitting up talking to his family when CM visited. They were all teary eyed, pleasant, and supportive of each other. CM requested that the Snack Foods Mixer Operator visit, and later she brought Carlos robert, at his request, as well as a prayer shawl. CM will continue to follow. A: Carlos is a 76 year old male admitted to [facility] on 09/09/21 with respiratory failure. P: Carlos will remain at [facility] for end of life care, after transitioning to comfort measures today. He will transfer to /S, where he will have more room for his family to visit. CM will continue to support Carlos and his family during this difficult time.
[2021-09-14] MEDS: Metoprolol 5 MG/5 ML VIAL 2.5 MG IVP (10:27)
[2021-09-14 10:59] LABS: BE 10 mmol/L (-2-3); HCO3 37 mmol/L (22-26); pH 7.26 (7.35-7.45); pO2 102 mmHg (80-105); sO2 97 % (95-98); tCO2 35 mmol/L (23-27)
[2021-09-14 11:05] LABS: pCO2 83 mmHg (35-45)
[2021-09-14 11:06] LABS: FIO2 40 %; FIO2L BIPAP 15/5 L; Site Left Radial
[2021-09-14] MEDS: Pantoprazole 40 MG VIAL IVP (11:57)
[2021-09-14] MEDS: Fluticasone NASAL SPRAY 16 GM BTL NS (11:59)
[2021-09-14] MEDS: Triamcinolone 0.1% CR 15 GM TUBE TP (12:00)
[2021-09-14 12:05] LABS: BE 10 mmol/L (-2-3); HCO3 37 mmol/L (22-26); pH 7.25 (7.35-7.45); pO2 69 mmHg (80-105); sO2 91 % (95-98); tCO2 35 mmol/L (23-27)
[2021-09-14 12:12] LABS: FIO2 30 %; FIO2L BIPAP 17/5 L; Site Left Radial
[2021-09-14 14:23] LABS: pCO2 84 mmHg (35-45)
--- NOTE | 2021-09-14 16:43 | CHAPLAIN ---
Carlos was resting in bed when I visited. His was there and two daughters. Ship Joiner Becky Baron let me know that Carlos's is not the mother of the two daughters, but they were all pleasant with one another. Carlos was hoping for a jelly doughnut, so I got him a couple from [employer]. His had not eaten lunch, but would only accept coffee, nothing to eat. Carlos seemed to appreciate the prayer shawl he was given. He spoke a few words at a time, and was very pleasant. He was recently placed on comfort measures after changing his code status to DNR/DNI
[2021-09-15] MEDS: Tiotropium Bromide-Respimat 10 PUFF INH 2 PUFF IH (07:34)
[2021-09-15] MEDS: Budesonide/Formoterol 160/4.5 6 GM 60 PUFF INH IH (07:34)
[2021-09-15 07:36] VITALS: BP 177/82; PULSE 105; RESP 20; TEMP 37; O2SAT 95
[2021-09-15] MEDS: Sodium Chloride-Nasal SPRAY-ADULT 44 ML BTL NS (10:57)
[2021-09-15 11:41] VITALS: RESP 16; RESP 7; RESP 8; O2SAT 93
[2021-09-15] MEDS: Ipratropium 0.5 MG/2.5 ML UPD VIAL IH ×2 (11:41→16:06)
[2021-09-15] MEDS: LORazepam 2 MG/ML VIAL IV/SC (13:07)
[2021-09-15] MEDS: Normal Saline Flush 10 ML SYR IVP ×2 (13:08→14:06)
[2021-09-15] MEDS: Furosemide 20 MG/2 ML VIAL IVP (14:06)
[2021-09-15] MEDS: Bacitracin 1 PACKET TP (15:17)
[2021-09-15 16:06] VITALS: RESP 5
[2021-09-15 16:08] VITALS: RESP 5
--- NOTE | 2021-09-15 16:31 | CMPROGNOTE_ITS ---
- If Service Date Differs Date of service: 09/15/21 Time of Service: 16:31 Care Management Progress Note S/O: Carlos was sitting up visiting with his , Lizzie and daughter, Terrie, when CM met with him. CM discussed the option of going home on Hospice, either to his home or to Terrie's home. He stated that he is comfortable here, and doesn't want to leave. He doesn't think it would be a good idea to move at this point. His family brought him in [employer] chicken, and Maryam Treating Plant Operator, brought him in [employer], which he was very happy about. CM offered support to him and his family. A: Carlos is a 76 year old male admitted to [facility] on 09/09/21 with respiratory failure. P: Carlos will remain at [facility] for end of life care, after transitioning to comfort measures today. He will transfer to M/S, where he will have more room for his family to visit. CM will continue to support Carlos and his family during this difficult time.
--- NOTE | 2021-09-15 18:35 | W.PM.PROGNOT ---
Date of Service Date of service: 09/15/21 Time of Service: 13:00 Assessment and Plan Assessment and plan (1) Acute on chronic respiratory failure with hypoxia and hypercapnia: Status: Acute Assessment and plan: Extubated, does not want to wear BiPAP, understands that he will without it and transitioned to comfort measures yesterday. Continue comfort measures. (2) GI bleeding: Status: Resolved Assessment and plan: Had an ulcer at GE junction by EGD on 09/13/21 - healing, not actively bleeding. Continue protonix, carafate. No longer monitoring labs (3) Anemia associated with acute blood loss: Status: Acute Assessment and plan: s/p 3 units pRBCS - as above (4) Deep vein thrombosis, upper right extremity: Status: Acute Assessment and plan: No longer on anticoagulation since he is on comfort measures and had GI bleeding. (5) Elevated troponin I level: Status: Acute Assessment and plan: Minimal troponin elevation in setting of acute on chronic hypoxic hypercapnic respiratory failure, suspected to be type 2 NSTEMI. Echo 09/07 with no wall motion abnormalities, LVEF of 55%, does have RVSP of 54 mmHg. Now on comfort measures only. (6) Discharge planning issues: Status: Acute Assessment and plan: DNR/DNI. ON comfort measures only. (7) DVT prophylaxis: Status: Acute Assessment and plan: Not on DVT ppx as he is on comfort measures. Subjective Subjective Interval history since last seen: Mr Rodriguez and his family are concerned today that he appears more puffy. We discussed how that could be because he is not wearing the BiPAP - and that he could have lasix for comfort, to which he agreed. He also wanted to have his L IJ CVL removed. He wanted to keep the vivas. Denies dizziness, chest pain, continues to report shortness of breath, nausea. Exam Narrative Exam Narrative: General: Obese male who is awake and having a very engaged conversation with his family HEENT: EOMI, MMM Heart: RRR, no m/r/g Lungs: CTAB Abdomen: soft, nontender, nondistended Extremities: +2 RUE edema, +1 BLE edema, no c/c. In soft UE restraints. Objective Last Vital Signs Temp 37.0 C 09/15/21 07:36 Pulse 105 H 09/15/21 07:36 Resp 16 09/15/21 11:41 BP 177/82 H 09/15/21 07:36 Pulse Ox 93 09/15/21 11:41
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
[2021-09-16] MEDS: Tiotropium Bromide-Respimat 10 PUFF INH 2 PUFF IH (07:11)
[2021-09-16] MEDS: Budesonide/Formoterol 160/4.5 6 GM 60 PUFF INH IH (07:11)
[2021-09-16] MEDS: Metoprolol CR 25 MG TABCR PO (08:56)
[2021-09-16] MEDS: Sodium Chloride-Nasal SPRAY-ADULT 44 ML BTL NS (08:56)
--- NOTE | 2021-09-16 09:41 | PDOC.CMPRO ---
- If Service Date Differs Date of service: 09/16/21 Time of Service: 09:41 Care Management Progress Note S/O: Carlos continues to visit with his , Lizzie, daughters, and family. CM discussed the option of going home on Hospice, either to his home or to Terrie's home. He stated that he is comfortable here, and doesn't want to leave. He doesn't think it would be a good idea to move at this point. Anticipate he will meet with GARLAND Silva of Palliative Care today. CM continues to offer support to him and his family. A: Carlos is a 76 year old male admitted to [facility] on 09/09/21 with respiratory failure. P: Carlos will remain at [facility] for end of life care, after transitioning to comfort measures. He will transfer to M/S, where he will have more room for his family to visit. CM will continue to support Carlos and his family during this difficult time.
[2021-09-16] MEDS: Scopolamine 1 MG/3 DAYS PATCH TD (11:21)
[2021-09-16] MEDS: Sucralfate 1 GM TAB PO (11:50)
--- NOTE | 2021-09-16 13:05 | W.PALLCONSUL ---
Date of service: 09/16/21 Time of Service: 12:05 History of Present Illness Narrative: Carlos was seen in his room with his daughter and present. He appears uncomfortable, he has increased WOB, he is restless. He had morphine solution x1 this morning. He reports that he is experiencing difficulty breathing. Family does not think he is comfortable. He is also experiencing lower abdominal pain. Discussed subcutaneous pump and he agrees. Asked nursing to give now dose of morphine solution. He was able to eat breakfast this morning and asked for lunch. He moved his bowels yesterday, no BM yet today. His family is clear that they just want him to be comfortable. Assessment and Plan Assessment and plan (1) Acute on chronic respiratory failure with hypoxia and hypercapnia: Status: Acute (2) COPD (chronic obstructive pulmonary disease): (3) GI bleeding: Status: Resolved (4) Anemia associated with acute blood loss: Status: Acute (5) Elevated troponin I level: Status: Acute (6) Palliative care patient: Status: Acute Assessment and plan: Carlos was seen in his hospital room with his and daughter present. He is on comfort-focused care for his end stage COPD. He does not appear to be comfortable. He agrees with CADD pump for pain and SOB. Hydromorphone pump ordered. Continue comfort-focused care. Palliative will continue to follow as needed. Review of Systems Constitutional Constitutional: Reports as per HPI PFSH All Active Problems Anemia associated with acute blood loss (Acute) Palliative care patient (Acute) Pleural effusion (Acute) Anemia (Chronic) Elevated troponin I level (Acute) Acute on chronic respiratory failure with hypoxia and hypercapnia (Acute) DVT prophylaxis (Acute) Discharge planning issues (Acute) Deep vein thrombosis, upper right extremity (Acute) Medical History COPD (chronic obstructive pulmonary disease) HTN (hypertension) Prostate cancer Surgical History No significant past surgical history Social History Smoking/Tobacco Use Status: Former Tobacco Use Smoking risk assessment performed?: Yes Alcohol Intake: current Substance use type: does not use Do you feel safe at home: Yes Do you feel safe in your relationship?: Yes Exam Narrative Exam Narrative: General: very pleasant 76 year old man, laying in bed with eyes closed, opened eyes to verbal stimuli. Able to answer questions appropriately. HEENT: normocephalic, atraumatic, EOMI, mucous membranes dry. Neck: supple, no JVD. Cardiovascular: tachycardic. Respiratory: appears SOB, wearing O2, restless, wheezing noted throughout lung burns, prolonged expiratory phase. GI: +BS, abdomen soft, nondistended, nontender on palpation. : vivas draining medium yellow urine. Extremities: Moves all 4 extremities freely, no edema. Results Last Vital Signs Temp 37.0 C 09/15/21 07:36 Pulse 105 H 09/15/21 07:36 Resp 16 09/15/21 11:41 BP 177/82 H 09/15/21 07:36 Pulse Ox 93 09/15/21 11:41 Labs Result diagrams: 09/14/21 05:30 09/14/21 05:30
--- NOTE | 2021-09-16 15:10 | W.PM.PROGNOT ---
Date of Service Date of service: 09/16/21 Time of Service: 14:10 Assessment and Plan Assessment and plan (1) Acute on chronic respiratory failure with hypoxia and hypercapnia: Status: Acute Assessment and plan: Start CAD pump with dilaudid. Continue comfort measures. (2) GI bleeding: Status: Acute Assessment and plan: Had an ulcer at GE junction by EGD on 09/13/21 - healing, not actively bleeding at time of EGD. Had a black BM documented since. Continue protonix, carafate. No longer monitoring labs (3) Anemia associated with acute blood loss: Status: Acute Assessment and plan: s/p 3 units pRBCS - as above (4) Deep vein thrombosis, upper right extremity: Status: Acute Assessment and plan: No longer on anticoagulation since he is on comfort measures and had GI bleeding. (5) Elevated troponin I level: Status: Acute Assessment and plan: Minimal troponin elevation in setting of acute on chronic hypoxic hypercapnic respiratory failure, suspected to be type 2 NSTEMI. Echo 09/07 with no wall motion abnormalities, LVEF of 55%, does have RVSP of 54 mmHg. Now on comfort measures only. (6) Discharge planning issues: Status: Acute Assessment and plan: DNR/DNI. ON comfort measures only. (7) DVT prophylaxis: Status: Acute Assessment and plan: Not on DVT ppx as he is on comfort measures. Subjective Subjective Interval history since last seen: Mr Rodriguez is short of breath. He is about to be started on a dilaudid CAD pump - he does not want an IV. HE denies dizziness, chest pain, nausea. His daughter expressed concern that his RUE appears more swollen today - we discussed how this is partially because he has a blood clot in that arm and also because the BIPAP was helping him urinate out the extra fluid - and now he is not wearing it. She did not have any other concerns. The patient would like to keep his vivas. Exam Narrative Exam Narrative: General: Obese male who is tachypneic/dyspneic/having abdominal breathing, Wakes up easily and able to have a coherent conversation HEENT: EOMI, MMM Heart: RRR, no m/r/g Lungs: CTAB Abdomen: soft, nontender, nondistended Extremities: +2 RUE edema, +1 BLE edema, no c/c. Objective Last Vital Signs Temp 37.0 C 05/25/22 07:36 Pulse 105 H 09/15/21 07:36 Resp 16 09/15/21 11:41 BP 177/82 H 09/15/21 07:36 Pulse Ox 93 09/15/21 11:41
[2021-09-16] MEDS: HYDROmorphone 100 MG in CADD PUMP CASSETTE 1 EACH, Normal Saline 90 ML SC INF (15:29)
[2021-09-16] MEDS: Glycopyrrolate 1 MG TAB PO (17:55)
[2021-09-16] MEDS: LORazepam 1 MG TAB PO (17:55)
--- NOTE | 2021-09-16 23:00 | NUR.NOTE ---
pt was met on the bed not to be breathing. Assessment confirmed pt passing.. by the bedside. postmorten care done. Body released to the Nursing buildings and grounds supervisor
--- NOTE | 2021-09-17 07:11 | W.PM.DDS ---
Date of service: 09/17/21 Discharge Sum: Diag Contributing Factors (1) Acute on chronic respiratory failure with hypoxia and hypercapnia: (2) GI bleeding: (3) Anemia associated with acute blood loss: (4) Deep vein thrombosis, upper right extremity: (5) Elevated troponin I level: (6) Discharge planning issues: (7) DVT prophylaxis:
== END 2021-09-16 19:30 | disposition expired | DRG 208 ==
LOC: ER 09-09 05:09 → ICU 09-09 05:27 → MS 09-14 18:49
PROVIDERS: Family Medicine; General Practice; Internal Medicine; Surgery; Admitting Provider Family Medicine; Emergency Provider Student in an Organized Health Care Education/Training Program; PCP Family Medicine; Visit Provider Family Medicine
PROC: 0DJ68ZZ Inspection of Stomach, Via Natural or Artificial Opening Endoscopic (ICD-10-PCS; CPT 43235; principal; 2021-09-13 14:00)
DX: J44.1 Chronic obstructive pulmonary disease with (acute) exacerbation (principal); J96.21 Acute and chronic respiratory failure with hypoxia; I21.A1 Myocardial infarction type 2; J96.22 Acute and chronic respiratory failure with hypercapnia; K27.4 Chronic or unspecified peptic ulcer, site unspecified, with hemorrhage; I82.621 Acute embolism and thrombosis of deep veins of right upper extremity; J90 Pleural effusion, not elsewhere classified; D62 Acute posthemorrhagic anemia; Z79.01 Long term (current) use of anticoagulants; Z99.81 Dependence on supplemental oxygen; I10 Essential (primary) hypertension; I08.1 Rheumatic disorders of both mitral and tricuspid valves; I27.20 Pulmonary hypertension, unspecified; G47.33 Obstructive sleep apnea (adult) (pediatric); G47.31 Primary central sleep apnea; G25.3 Myoclonus; K22.70 Barrett's esophagus without dysplasia; Z78.1 Physical restraint status; Z51.5 Encounter for palliative care; E66.9 Obesity, unspecified; Z68.27 Body mass index [BMI] 27.0-27.9, adult
CPT/HCPCS: 43235; 36415; 36430; 36591; 71275; 76942; 80048; 80053; 80076; 82805; 84145; 86850; 86900; 86901; 86920; 87077; 87637; 93005; 94640; 96374; 97110; 97162; 97530; 99223; 99233; 99285; 36600; 71045; 81003; 81015; 82272; 82607; 82746; 83615; 83735; 83880; 84484; 85014; 85018; 85025; 85045; 85610; 85730; 87070; 87186; 87205; 93010; 93970; 94002; 94003; 94660; 94667; 99231; 99232; 99291; 99292; J1170; J1941; J2060; J2704; J3010; J3490; J7512; J7613; J7620; J7644; P9016